=== PATIENT | female | born 1930 | race Caucasian/White ===

== ENCOUNTER 2017-01-30 20:10 | Observation (INO) ==
[2017-01-30] MEDS ORDERED: 0.9 % Sodium Chloride 1,000 ML IVC ONE (21:00)
--- NOTE | 2017-01-30 21:00 | Emergency Department Note ---
Disposition Clinical Impression: Accelerated hypertension Syncope Qualifiers: Encounter type: subsequent encounter Disposition: Admitted As Inpatient Condition: Fair Time of Disposition: 23:00 Syncope HPI - General Chief Complaint: ED Seizure Stated Complaint: seizure earlier today Time Seen by Provider: 01/30/17 20:25 Source: patient, family Nursing Notes Reviewed: Yes Vital Signs Reviewed: Yes - History of Present Illness HPI Narrative: 86-year-old female with syncopal episode, family was concerned that she was having a seizure, she does have known A. fib hypertension, she is on clonidine, amiodarone, diltiazem and lisinopril for hypertension and atrial fibrillation, she has been compliant on her medication. She had 1 episodes in every week ago , she was also seen at [facility] and for evaluation of the same complaints. Apparently today what happened was she was reaching down off a chair to machine pecan picker something for her great-granddaughter, then when she got up she passed out lost consciousness and was laid gently to the floor by her granddaughter who is at bedside, she did not bite her tongue or have urinary or bowel incontinence, she was out for a few minutes and had no postictal period. The patient did not describe that she had a jerking motion when she was passed out No recent fever chills chest pain abdominal pain nausea vomiting diarrhea hematuria or dysuria, patient has no other symptoms. Pt Subjective Complaint: loss of consciousness Onset (ago): hour(s) Duration: second(s) Description of Event: focal shaking Prodromal Symptoms: lightheaded Witnessed: yes - by bystander Context: during exertion, standing up Injuries Sustained Associated with Event: none Current Symptoms: none History: previous syncopal episode, history of CAD Treatments prior to arrival: none Associated trauma secondary to event: No - Related Data Home Medications Medication Instructions Recorded Confirmed Amiodarone HCl [Pacerone] 200 mg PO DAILY 01/14/17 01/30/17 Diltiazem HCl [Diltiazem ER] 240 mg PO DAILY 01/14/17 01/30/17 Pantoprazole Sodium [Protonix] 40 mg PO DAILY 01/14/17 01/30/17 Warfarin [Coumadin] 2.5 mg PO 1800 01/14/17 01/30/17 Aspirin [Lo-Dose Aspirin EC] 81 mg PO DAILY 01/30/17 01/30/17 CloNIDine HCl [Clonidine HCl] 0.1 mg PO BID 01/30/17 01/30/17 Lisinopril [Zestril] 10 mg PO DAILY 01/30/17 01/30/17 Allergies Allergy/AdvReac Type Severity Reaction Status Date / Time No Known Allergies Allergy Verified 10/18/16 19:54 All systems ED: reviewed and negative except as stated. Constitutional: Reports: as per HPI, weakness. Denies: fever, chills ENT ED: Denies: ear pain, throat pain Cardiovascular: Denies: chest pain, palpitations Respiratory: Denies: cough, dyspnea, wheezes Gastrointestinal: Denies: abdominal pain, nausea, vomiting Genitourinary: Denies: urgency, dysuria Musculoskeletal: Denies: back pain, neck pain Neurological: Reports: as per HPI, weakness, other (syncope). Denies: headache Endocrine: Denies: fatigue, heat or cold intolerance Past Medical History - Past Medical History Attestation: Yes The following information was validated with the patient. Source: patient Medical history: Reports: coronary artery disease, hyperlipidemia, hypertension , myocardial infarction, seizures Psychiatric history: Reports: no psych history - Social History Smoking Status: Former smoker Smokeless Tobacco Status: No Alcohol use: Reports: none Drug use: Reports: none Physical Exam Constitutional: Elderly female in no acute distress, appears stated age, vital signs significant for hypertension HEENT: NCAT, sclera anicteric, PERRLA bilaterally, normal external ears bilaterally, nasal septum nondeviated, average dentition, MMM Neck: normal inspection, neck is supple, trachea midline Resp: normal chest inspection, CTA bilaterally, no resp distress CV: Diminished mccann sounds, systolic murmur GI: normal inspection, Soft, NTND, BS present Back: normal inspection, no tenderness to palpation Neuro: A&O3, no gross motor or sensory deficits bilaterally on focal neurologic exam, cranial nerves II through XII grossly intact, MSK: normal inspection, bilateral UE and LE with normal ROM Psych: normal mood, normal affect Skin: Old surgical incisions on her knee and right ankle well healed, clean dry intact - General General appearance: alert Course Course Narrative: Elderly female with syncope most likely, possible seizure activity given jerking moment but given the history of sitting standing, doing check orthostatic vitals at CT basic lab work chest x-ray and EKG, patient appears at her baseline at this time with no focal neurologic deficits, I strongly suspect an orthostatic or vasovagal etiology for her syncope. Given multiple antihypertensives decision will be whether or not to admit or go home likely admission for further workup - Reevaluation(s) Reevaluation #1: Admitted to [place] for further workup labs imaging negative Vital Signs Temperature 97.6 F 01/30/17 20:11 Pulse Rate 62 01/30/17 20:11 Respiratory Rate 18 01/30/17 20:11 Blood Pressure 181/73 01/30/17 20:11 O2 Sat by Pulse Oximetry 98 01/30/17 20:11 Temperature 97.7 F 01/30/17 23:48 Pulse Rate 65 01/30/17 23:48 Respiratory Rate 18 01/30/17 23:48 Blood Pressure 167/60 01/30/17 23:48 O2 Sat by Pulse Oximetry 99 01/30/17 23:48 Oxygen Delivery Oxygen Delivery Room Air Syncope - Differential Diagnosis Likely: syncope due to orthostatic hypotension, vasovagal syncope, complete atrioventricular block, intracerebral hemorrhage, dehydration/metabolic disorder - Medical Records Medical records reviewed: Yes I reviewed the patient's medical records. - Lab Data Lab results reviewed: Yes I reviewed the patient's lab results. Result diagrams: 01/30/17 21:11 01/30/17 21:11 Lab Results 01/30/17 01/30/17 01/30/17 Range/Units 20:31 21:11 21:11 WBC 6.7 (4.3-11.1) K/mcL RBC 4.42 (3.82-4.97) M/mcL Hgb 12.5 (11.5-15.4) g/dL Hct 40.0 (35.3-44.9) % MCV 90.5 (83.0-100.0) fL MCH 28.3 (28.0-33.3) pg MCHC 31.3 L (31.6-35.5) g/dL RDW 14.1 (11.5-14.5) % Plt Count 248 (140-400) K/mcL MPV 9.4 (9.4-12.4) fL Immature Gran % 0.3 (0-4) % Seg Neutrophils % 65.0 % Lymphocytes % 24.1 % Monocytes % 6.6 % Eosinophils % 3.5 % Basophils % 0.5 % Neutrophils # 4.3 (1.6-8.9) K/mcL Lymphocytes # 1.6 (0.6-4.6) K/mcL Monocytes # 0.4 (0.0-1.3) K/mcL Eosinophils # 0.2 (0.0-0.6) K/mcL Basophils # 0.0 (0.0-0.2) K/mcL Immature Plt Fraction 1.9 (1.1-6.1) % PT 12.3 H (9.4-12.1) Seconds INR 1.1 APTT 29.5 (26.0-36.0) Seconds Sodium (136-145) mEq/L Potassium (3.5-4.5) mEq/L Chloride (98-109) mEq/L Carbon Dioxide (19-29) mEq/L BUN (7-20) mg/dL Creatinine (0.57-1.11) mg/dL Est GFR ( Amer) (> 60) Est GFR (Non-Af Amer) (> 60) BUN/Creatinine Ratio (6-26) Glucose (70-99) mg/dL POC Glucose 123 H (58-89) Calculated Osmolality (280-300) Calcium (8.6-10.8) mg/dL Troponin I (0-0.03) ng/mL Urine Color (Yellow) Urine Clarity (Clear) Urine pH (5.0-8.0) pH Units Ur Specific [place] (1.010-1.025) Urine Protein (Neg-Trace) mg/dL Urine Glucose (UA) (Normal) mg/dL Urine Ketones (Negative) mg/dL Urine Blood (Negative) Urine Nitrite (Negative) Urine Bilirubin (Negative) Urine Urobilinogen (Normal) mg/dL Ur Leukocyte Esterase (Negative) Urine Microscopic RBC (0-3) per hpf Urine Microscopic WBC (0-3) per hpf Ur Squamous Epith Cells (None-Few) per lpf Urine Bacteria (None-Few) per hpf Hyaline Casts (None-Few) per lpf Ur Culture Indicated? (NO) 01/30/17 01/30/17 01/30/17 Range/Units 21:11 21:11 21:52 WBC (4.3-11.1) K/mcL RBC (3.82-4.97) M/mcL Hgb (11.5-15.4) g/dL Hct (35.3-44.9) % MCV (83.0-100.0) fL MCH (28.0-33.3) pg MCHC (31.6-35.5) g/dL RDW (11.5-14.5) % Plt Count (140-400) K/mcL MPV (9.4-12.4) fL Immature Gran % (0-4) % Seg Neutrophils % % Lymphocytes % % Monocytes % % Eosinophils % % Basophils % % Neutrophils # (1.6-8.9) K/mcL Lymphocytes # (0.6-4.6) K/mcL Monocytes # (0.0-1.3) K/mcL Eosinophils # (0.0-0.6) K/mcL Basophils # (0.0-0.2) K/mcL Immature Plt Fraction (1.1-6.1) % PT (9.4-12.1) Seconds INR APTT (26.0-36.0) Seconds Sodium 141 (136-145) mEq/L Potassium 4.4 (3.5-4.5) mEq/L Chloride 108 (98-109) mEq/L Carbon Dioxide 25 (19-29) mEq/L BUN 22 H (7-20) mg/dL Creatinine 0.92 (0.57-1.11) mg/dL Est GFR ( Amer) > 60 (> 60) Est GFR (Non-Af Amer) 58 L (> 60) BUN/Creatinine Ratio 24 (6-26) Glucose 133 H (70-99) mg/dL POC Glucose (58-89) Calculated Osmolality 297 (280-300) Calcium 8.9 (8.6-10.8) mg/dL Troponin I 0.01 (0-0.03) ng/mL Urine Color Yellow (Yellow) Urine Clarity Clear (Clear) Urine pH 6.0 (5.0-8.0) pH Units Ur Specific [place] 1.010 (1.010-1.025) Urine Protein Negative (Neg-Trace) mg/dL Urine Glucose (UA) Normal (Normal) mg/dL Urine Ketones Negative (Negative) mg/dL Urine Blood Negative (Negative) Urine Nitrite Negative (Negative) Urine Bilirubin Negative (Negative) Urine Urobilinogen Normal (Normal) mg/dL Ur Leukocyte Esterase Small H (Negative) Urine Microscopic RBC 0-3 (0-3) per hpf Urine Microscopic WBC 5-15 H (0-3) per hpf Ur Squamous Epith Cells Many H (None-Few) per lpf Urine Bacteria None Seen (None-Few) per hpf Hyaline Casts None Seen (None-Few) per lpf Ur Culture Indicated? YES A (NO) - Radiology Data Radiology results reviewed: Yes I reviewed the patient's radiology results. Chest X-Ray 01/30/17 21:00 IMPRESSION: No acute cardiopulmonary disease. D/ / 01/30/2017 21:37:52 George Suresh MD / jelly Interpreting Provider: George Suresh MD Head CT 01/30/17 21:01 IMPRESSION: Chronic small vessel ischemic change. No acute intracranial abnormality seen. Paranasal sinus disease with small gas fluid levels in the maxillary sinuses, question sinusitis. Cerumen plugs obstructing the external auditory canals bilaterally. D/ / 01/30/2017 21:38:46 George Suresh MD / jelly Interpreting Provider: George Suresh MD - EKG Data EKG attestation: Yes I reviewed and interpreted this EKG. EKG shows normal: sinus rhythm Rate: bradycardia (59 bpm WI 187 QRS 143 QTc 474 evidence of right bundle branch block similar to previous EKG of 2012) Rhythm: NSR [place]/QRS: normal Interpretation: unchanged when compared to prior tracing (date) - Core Measures AMI Core Measures Followed: No Measure Exclusions: not indicated Attestation Statement - Attestation Attestation: I, Bogdan Bal MD, personally performed a history and physical exam of the patient and discussed their management with the resident. I reviewed the resident's note and agree with the documented findings, medical decision making , and plan of care. 86-year-old female persisted the emergency department after a syncopal episode. She apparently has been having multiple syncopal episodes over the past 2-3 weeks. He was admitted at [facility] about 2 weeks ago for this. Since then she has also been seen at [facility]. Family reports that she has some jerking and seizure-like activity and she blacks out. Patient reports that she remembers bending over to pick something up and when she stood back up she felt dizzy and lightheaded. She does not remember passing out but states that family told her she was out for a few minutes. He has any chest pain or palpitations or shortness of breath. On examination patient is a well-developed elderly female in no distress. She is alert and answers questions appropriately. She is very hard of hearing and seems mildly confused. Breath sounds are decreased but equal bilaterally. Heart regular rate and rhythm with a 1/6 systolic murmur. Abdomen is soft and nontender with normal bowel sounds. No gross focal neurological deficits. Labs reviewed. No acute changes on EKG. Chest x-ray negative. Head CT negative. The hospitalist, Dr. Duran, was consulted and accepted the admission of the patient.
[2017-01-30 21:19] LABS: Basophils % 0.5 %; Eosinophils # 0.2 K/mcL (0.0-0.6); Eosinophils % 3.5 %; Hemoglobin 12.5 g/dL (11.5-15.4); Immature Granulocytes % 0.3 % (0-4); Immature Platelets 1.9 % (1.1-6.1); Lymphocytes # 1.6 K/mcL (0.6-4.6); Lymphocytes % 24.1 %; Mean Corpuscular HGB Conc 31.3 g/dL (31.6-35.5); Mean Corpuscular Hemoglobin 28.3 pg (28.0-33.3); Mean Corpuscular Volume 90.5 fL (83.0-100.0); Mean Platelet Volume 9.4 fL (9.4-12.4); Monocytes # 0.4 K/mcL (0.0-1.3); Monocytes % 6.6 %; Neutrophils # 4.3 K/mcL (1.6-8.9); Platelet Count 248 K/mcL (140-400); Red Blood Count 4.42 M/mcL (3.82-4.97); Red Cell Distribution Width 14.1 % (11.5-14.5)
[2017-01-30 21:23] LABS: INR 1.1; Prothrombin Time 12.3 Seconds (9.4-12.1)
[2017-01-30 21:26] LABS: Activated Partial Thrombo Time 29.5 Seconds (26.0-36.0)
[2017-01-30 21:30] LABS: BUN/Creatinine Ratio 24 (6-26); Blood Urea Nitrogen 22 mg/dL (7-20); Calcium 8.9 mg/dL (8.6-10.8); Carbon Dioxide 25 mEq/L (19-29); Chloride 108 mEq/L (98-109); Glucose 133 mg/dL (70-99); Osmolality,Calculated 297 (280-300); Potassium 4.4 mEq/L (3.5-4.5); Sodium 141 mEq/L (136-145); eGFR For African Americans > 60 (> 60); eGFR For Non-African Americans 58 (> 60)
[2017-01-30 22:00] LABS: Bilirubin,Urine Negative (Negative); Blood,Urine Negative (Negative); Clarity,Urine Clear (Clear); Color,Urine Yellow (Yellow); Glucose,Urine (UA) Normal (Normal); Ketones,Urine Negative (Negative); Leukocyte Esterase,Urine Small (Negative); Nitrite,Urine Negative (Negative); Protein,Urine Negative (Neg-Trace); Urobilinogen,Urine Normal (Normal)
[2017-01-30 22:02] LABS: Bacteria,Urine None Seen per hpf (None-Few); Hyaline Casts,Urine None Seen per lpf (None-Few); RBC,Urine 0-3 per hpf (0-3); Squamous Epithelial Cell,Urine Many per lpf (None-Few)
--- NOTE | 2017-01-30 23:21 | Internal Med History&Physical ---
<Ginger Hollingsworth - Last Filed: 01/31/17 00:34> Date of Encounter: 01/31/17 Time of Encounter: 23:10 Assessment and Plan (1) Syncope and collapse Current visit: No Status: Acute Multiple previous ER visits and at least one previous admission for syncope. Head CT negative orthostatics negative obtain records from [facility] telemetry Echocardiogram (2) Subtherapeutic international normalized ratio (INR) Current visit: Yes Status: Acute patient with a fib on coumadin, INR 1.1 bridge with lovenox (3) UTI (urinary tract infection) Current visit: No Status: Acute macrobid x3days Qualifiers: Urinary tract infection type: site unspecified Hematuria presence: without hematuria Qualified Code(s): N39.0 - Urinary tract infection, site not specified (4) A-fib Current visit: Yes Status: Chronic continue home medications Qualifiers: Atrial fibrillation type: unspecified Qualified Code(s): I48.91 - Unspecified atrial fibrillation (5) HTN (hypertension) Current visit: Yes Status: Chronic continue home medications PRN hydralazine Qualifiers: Hypertension type: essential hypertension Qualified Code(s): I10 - Essential (primary) hypertension Internal Medicine - H&P: HPI Chief complaint: syncope Admitted From: Emergency Dept Plans for Post Hospital Care: Home History of present illness: Ms. Saucedo is a 86 year old female with PMH of HTN and a fib who presents to the ER after a syncopal episode this afternoon. She was bending down to pick something up off the floor and when she stood up, so lost consciousness. She was unconscious for a few minutes according to her granddaughter, who caught her and lowered her to the ground. There was no post-ictal phase. On my questioning, the patient states that she has a dizzy headache x1 week. She was admitted at [facility] for a similar episode. Patient states she also went to [facility] and was not admitted. She thinks she saw her PCP for this and was sent to the ER. She cannot remember her PCP's name, but knows that she goes to [facility]. (No family present at time of interview.) Past Med Surg Social Fam HX - Past Medical History Medical history: atrial fibrillation, coronary artery disease, hyperlipidemia, hypertension, myocardial infarction, seizures Psychiatric history: no psych history - Social History Smoking Status: Former smoker Smokeless Tobacco Status: No Alcohol use: none Drug use: none - Family History Son Adopted: No Living Status: Hx Family Cancer: Yes (not sure of type) Internal Medicine - H&P: Meds Amiodarone HCl [Pacerone] 200 mg PO DAILY 01/14/17 [History] Diltiazem HCl [Diltiazem ER] 240 mg PO DAILY 01/14/17 [History] Pantoprazole Sodium [Protonix] 40 mg PO DAILY 01/14/17 [History] Warfarin [Coumadin] 2.5 mg PO 1800 01/14/17 [History] Aspirin [Lo-Dose Aspirin EC] 81 mg PO DAILY 01/30/17 [History] CloNIDine HCl [Clonidine HCl] 0.1 mg PO BID 01/30/17 [History] Lisinopril [Zestril] 10 mg PO DAILY 01/30/17 [History] Allergies No Known Allergies Allergy (Verified 10/18/16 19:54) All Systems PM: A 10-system review of systems was performed and is negative for pertinent findings except as documented above in the HPI. - Constitutional Vitals: Temp Pulse Resp BP Pulse Ox 97.6 F 77 14 169/66 97 01/30/17 20:11 01/30/17 22:32 01/30/17 22:43 01/30/17 22:43 01/30/17 22:32 General appearance: Present: A&O X 3, pleasant, no acute distress - Head Head exam: Present: atraumatic, normocephalic - Eye Eye exam: Present: PERRL, conjuntiva pink, sclera anicteric Pupils: Present: PERRL - Neck Neck exam general surgery: Present: supple, trachea midline. Absent: lymphadenopathy - Respiratory Respiratory exam: Present: CTAB. Absent: accessory muscle use, rales, rhonchi, wheezes - Cardiovascular Cardiovascular exam: Present: distant heart sounds, RRR, +S1, +S2, systolic murmur. Absent: diastolic murmur, gallop, rubs - GI/Abdominal GI/Abdominal exam: Present: normal bowel sounds, soft, no peritoneal signs. Absent: distended, tenderness - Extremities Exam Extremities exam: Present: warm, radial pulses palpable and symetrical. Absent : calf tenderness, cyanotic, pedal edema - Neurological Exam Neurological exam: Present: CN II-XII intact, oriented X3, no focal deficits. Absent: pronater drift, facial droop, speech deficit - Skin Skin exam: Present: dry, intact Internal Med - H&P Results - Labs CBC & Chem 7: 01/30/17 21:11 01/30/17 21:11 <Maxim Ross - Last Filed: 01/31/17 01:37> Date of Encounter: 01/31/17 Time of Encounter: 00:30 Assessment and Plan (1) Syncope and collapse Current visit: No Status: Acute (2) Accelerated hypertension Current visit: Yes Status: Acute (3) Subtherapeutic international normalized ratio (INR) Current visit: Yes Status: Acute (4) A-fib Current visit: Yes Status: Chronic Qualifiers: Atrial fibrillation type: unspecified Qualified Code(s): I48.91 - Unspecified atrial fibrillation (5) HTN (hypertension) Current visit: Yes Status: Chronic Qualifiers: Hypertension type: essential hypertension Qualified Code(s): I10 - Essential (primary) hypertension (6) UTI (urinary tract infection) Current visit: No Status: Acute Qualifiers: Urinary tract infection type: site unspecified Hematuria presence: without hematuria Qualified Code(s): N39.0 - Urinary tract infection, site not specified Internal Medicine - H&P: HPI Chief complaint: Syncope Admitted From: Emergency Dept Plans for Post Hospital Care: Home History of present illness: I examined this patient and my medical decision-making was reviewed with the Resident Physician. I agree with the documented history of present illness, review of systems, past medical, surgical social and family histories and examination findings, disposition and treatment plan as described above except to any changes set forth below. Ms. Saucedo is a 86 year old female history of hypertension, atrial fibrillation who presented to the ER with complaints of a syncopal episode. This occurred at the patient's home when she was bending over to pick something off the floor. She lost consciousness after she stood up. This lasted for about a few minutes. Patient is currently very somnolent and unable to provide history. History has been obtained through review of ED records and through the resident physician.. All Systems PM: A 10-system review of systems was performed and is negative for pertinent findings except as documented above in the HPI. - Constitutional Vitals: Temp Pulse Resp BP Pulse Ox 97.7 F 65 18 167/60 99 01/30/17 23:48 01/30/17 23:48 01/30/17 23:48 01/30/17 23:48 01/30/17 23:48 Exam: Currently very somnolent and not answering questions. - Neck Neck exam general surgery: Present: supple, trachea midline. Absent: lymphadenopathy - Respiratory Respiratory exam: Present: CTAB. Absent: accessory muscle use, rales, rhonchi, wheezes - Cardiovascular Cardiovascular exam: Present: RRR, +S1, +S2. Absent: diastolic murmur, gallop, rubs, systolic murmur - GI/Abdominal GI/Abdominal exam: Present: normal bowel sounds, soft, no peritoneal signs. Absent: distended, tenderness - Extremities Exam Extremities exam: Present: warm, radial pulses palpable and symetrical. Absent : calf tenderness, cyanotic, pedal edema Internal Med - H&P Results - Labs CBC & Chem 7: 01/30/17 21:11 01/30/17 21:11 - Attending Attestation Elderly patient with recurrent episodes of syncope. We will observe in the hospital under telemetry. Get 2-D echocardiogram and carotid Dopplers. Get records from [facility] where the patient was recently seen. Gentle hydration. Treat acute urinary tract infection with Macrobid. Does not appear to have had seizure-like activity. May consider MRI of the brain and EEG. Accelerated hypertension: Improving. Continue home medications. Monitor blood pressure closely. Atrial fibrillation: Rate controlled and in sinus rhythm currently. Subtherapeutic INR. Will bridge with Lovenox. Continue Coumadin. This document has been at least partially created by [employer] recognition technology by Dr. Ross. Errors in grammar, wording or other phrases may exist. If errors are found after the documentation is signed, they will be addressed individually in the addendum section of this document when appropriate.
[2017-01-30] MEDS ORDERED: Naloxone 0.4 MG/ML INJ IVP PRN (23:30)
[2017-01-30] MEDS ORDERED: Ondansetron ODT 4 MG TAB.RAPDIS SL PRN (23:30)
[2017-01-30] MEDS ORDERED: Acetaminophen 325 MG TABLET PO PRN (23:30)
[2017-01-31] MEDS: 0.9 % Sodium Chloride 1,000 ML IVC SCH ×2 (01:17→17:34)
[2017-01-31] MEDS: *HR* Enoxaparin 80 MG/0.8 ML SYRINGE SQ SCH ×2 (05:36→17:29)
--- NOTE | 2017-01-31 08:27 | Internal Med Progress Note ---
Date of Encounter: 01/31/17 Time of Encounter: 08:23 - Assessment and plan (1) UTI (urinary tract infection) Current Visit: Yes Status: Acute Assessment and plan: Asymptomatic UTI; Urine dipstick suggestive of UTI, but this may be a contaminant since she was recently treated with IV Rocephin and cultures were negative. Continue Nitrofurantoin and c/c if urine culture is sterile. Qualifiers: Urinary tract infection type: site unspecified Hematuria presence: without hematuria Qualified Code(s): N39.0 - Urinary tract infection, site not specified (2) Syncope Current Visit: Yes Status: Acute Assessment and plan: Recurrent episodes, sometimes on bending down. To consider cardiac etiology. Orthostatic vitals negative. Telemetry monitoring, so far uneventful. Check 2D Echocardiogram in light of systolic murmur, and B/L carotid Doppler. Will consult Cardiology if needed. Patient may need to be discharged on Holter monitor if workup is negative. Qualifiers: Syncope type: unspecified Qualified Code(s): R55 - Syncope and collapse (3) CAD (coronary artery disease) Current Visit: Yes Status: Chronic Qualifiers: Coronary Disease-Associated Artery/Lesion type: [place] artery [place] vs. transplanted heart: [place] heart Associated angina: without angina Qualified Code(s): I25.10 - Atherosclerotic heart disease of [place] coronary artery without angina pectoris (4) A-fib Current Visit: Yes Status: Chronic Assessment and plan: Currently rate-controlled. Continue home meds- Amiodarone and Cardizem. Continue long-term anticoagultion with Coumadin; INR is subtherapeutic, bridge with Lovenox while in the hospital. Qualifiers: Atrial fibrillation type: unspecified Qualified Code(s): I48.91 - Unspecified atrial fibrillation (5) HTN (hypertension) Current Visit: Yes Status: Chronic Assessment and plan: Elevated BP; Clonidine was increased about 2 weeks ago per [facility] notes. Will increase Lisinopril, resume other meds, and continue to monitor. On PRN IV Hydralazine for appropriate BP control. Low sodium diet. Qualifiers: Hypertension type: essential hypertension Qualified Code(s): I10 - Essential (primary) hypertension - Subjective Interval history: Feels well. No dizziness, chest pain, dyspnea, leg swelling, focal weakness reported. - Constitutional Vitals: Temp Pulse Resp BP Pulse Ox 97.9 F 64 18 169/66 96 01/31/17 05:56 01/31/17 05:56 01/31/17 05:56 01/31/17 05:56 01/31/17 05:56 General appearance: Present: A&O X 3, answers questions appropriately - Head Head exam: Present: atraumatic, normocephalic - Neck Neck exam general surgery: Present: supple, trachea midline. Absent: lymphadenopathy - Respiratory Respiratory exam: Present: CTAB. Absent: accessory muscle use, rales, rhonchi, wheezes - Cardiovascular Cardiovascular exam: Present: RRR, +S1, +S2, systolic murmur. Absent: diastolic murmur, gallop, rubs - GI/Abdominal GI/Abdominal exam: Present: normal bowel sounds, soft, no peritoneal signs. Absent: distended, tenderness - Extremities Exam Extremities exam: Present: full ROM, warm, radial pulses palpable and symetrical. Absent: calf tenderness, cyanotic, pedal edema - Neurological Exam Neurological exam: Present: CN II-XII intact, oriented X3, no focal deficits. Absent: pronater drift, facial droop, speech deficit - Skin Skin exam: Present: dry, intact Internal Medicine: Result - Labs CBC & Chem 7: 01/30/17 21:11 01/30/17 21:11 - ABG Interpretation ABG results: PT/INR, D-dimer PT 12.3 Seconds (9.4-12.1) H 01/30/17 21:11 Consult Discharge Plan - Plan Referrals: NO,PCP [Primary Care Provider] -
[2017-01-31] MEDS: Aspirin Enteric Coated 81 MG Tablet PO SCH (09:07)
[2017-01-31] MEDS: Nitrofurantoin (BID) 100 MG CAPSULE PO SCH ×2 (09:07→17:30)
[2017-01-31] MEDS: cloNIDine HCl 0.1 MG TABLET PO SCH ×2 (09:07→21:08)
[2017-01-31] MEDS: *HR* Amiodarone 200 MG TABLET PO SCH (09:07)
[2017-01-31] MEDS: Diltiazem CD (24hr) 240 MG CAPSULE PO SCH (09:07)
--- NOTE | 2017-01-31 11:09 | ECHO - Doppler Report ---
Echocardiogram Name: Clara Saucedo Date of Study: 01/31/2017 Date: 1930 Ht: 61.0 in Medical Record#: [id number] Age: 86 Wt: 148.0 lb Gender: Female BSA: 1.66 Order #: [id number] Location: [facility] Room #: 2NE21 Reading Physician: Jessica Reed DO Green Building Engineer: Desirae Winslow Ordering Physician: Ginger Hollingsworth DO Primary Physician: None Indications: Syncope Impressions: LVEF 60%. Normal left ventricular size and systolic function. There is evidence of mild diastolic dysfunction of the left ventricle. Normal right ventricular size and function. Mild aortic stenosis. Mild tricuspid regurgitation. Mild pulmonary hypertension. Possible PFO with color flow Doppler. If indicated, consider repeat Limited study with saline bubble study. Left Ventricular Wall Motion: Rest Echo Findings All wall segments showed normal motion. Findings: Study Quality * Technically adequate exam. ECG Findings * Normal sinus rhythm. Left Ventricle * LVEF 60%. * Mild left ventricular diastolic dysfunction. * Normal LV chamber size, wall thickness and function. Left Atrium * Normal left atrial size. Mitral Valve * Normal mitral valve structure. * Moderate mitral annular calcification * Trace mitral regurgitation. * No mitral stenosis. Aortic Valve * No aortic regurgitation. * Aortic valve not well visualized. * Mild aortic stenosis. Tricuspid Valve * Mild tricuspid regurgitation. * Normal tricuspid valve structure. * Estimated RA pressure is 3 mmHg. * Estimated RVSP is 39 mmHg. * Mild pulmonary hypertension. Pulmonic Valve * Pulmonic valve is not well visualized. * No pulmonic stenosis. * Trace pulmonic regurgitation. Right Ventricle * Normal right ventricular structure and function. Right Atrium * Normal right atrial size. Pulmonary Artery * Pulmonary artery not well visualized. IVC * Normal IVC dimensions and inspiratory collapse. Pericardium * There is no pericardial effusion present. Aorta * Not well visualized. Interatrial Septum * Interatrial septum not well evaluated. Possible PFO with color flow doppler. History Hypertension Hypercholesteremia History of CAD/PTCA Myocardial Infarction Measurements: BP: 191/ 76 2D Normal Values LVIDd: 3.20 cm 3.7 - 5.6 cm LVIDs: 2.30 cm 1.5 - 3.6 cm AO: 2.70 cm < 4.0 cm LA: 3.70 cm 2.0 - 4.0cm %FS: 28.10 cm >25 % LVOT Diam: 2.00 cm LA volume: 27 Mitral Valve Peak E:.81 m/sec Peak A:1.26 m/sec E/A Ratio:0.6 Peak E' Lat Ga:6.04 cm/s Peak E' Med Ga:6.53 cm/s E/E' Lat Ratio:13.5 E/E' Med Ratio:12.5 LVOT Peak Ga:1.08 m/sec Mean Ga:.76 m/sec Peak Grad:5.00 mmHg Mean Grad:3.00 mmHg Aortic Valve Peak Ga:2.38 m/sec Mean Ga:1.67 m/sec Peak Grad:23.00 mmHg Mean Grad:12.00 mmHg Valve Area:1.60 cm2 Tricuspid Valve TV Regurg Peak Grad: 36.00mmHg TV Regurg Peak Ga: 3.00m/sec Updated by Jessica Reed on 01/31/2017 11:01:50 AM electronically signed on 01/31/2017 11:02:56 AM with status of Final Wall Motion Michael: 1=Normal, 2=Hypokinesis, 3=Akinesis, 4=Dyskinesis, 5=Aneurysmal, 6=Hyperkinetic, X=Not Visualized (Blank)=Missing
--- NOTE | 2017-01-31 14:53 | Neurology - Consult Note ---
<Elgin Gong - Last Filed: 01/31/17 15:18> Date of Encounter: 01/31/17 Time of Encounter: 14:35 Assessment and Plan (1) Observed seizure-like activity Current Visit: Yes Status: Acute The patient exhibiting "shaking episodes" that are brief and are quickly resolved when attention is diverted. Patient experienced more during examination. Patient immediately responsive and not post-ictal after the episodes. They affect bilateral upper extremities and during them she kicks her legs intermittently. These do not appear to be true seizures but an EEG and MRI should be obtained. (2) Syncope Current Visit: Yes Status: Acute Numerous events occurring over the past 5 months. The patient's orthostatic vitals are negative. Patient has mild dizziness worsened with head positioning. Echo demonstrated no etiology of patient's symptoms. Qualifiers: Syncope type: unspecified Qualified Code(s): R55 - Syncope and collapse (3) Subtherapeutic international normalized ratio (INR) Current Visit: Yes Status: Acute Bridged on Lovenox upon admission due to subtherapeutic INR (4) A-fib Current Visit: Yes Status: Chronic Per primary Qualifiers: Atrial fibrillation type: unspecified Qualified Code(s): I48.91 - Unspecified atrial fibrillation (5) CAD (coronary artery disease) Current Visit: Yes Status: Chronic Qualifiers: Coronary Disease-Associated Artery/Lesion type: [place] artery [place] vs. transplanted heart: [place] heart Associated angina: without angina Qualified Code(s): I25.10 - Atherosclerotic heart disease of [place] coronary artery without angina pectoris (6) HTN (hypertension) Current Visit: Yes Status: Chronic Numerous medications. Concern for possible medication induced positional hypotension at home. Qualifiers: Hypertension type: essential hypertension Qualified Code(s): I10 - Essential (primary) hypertension History of Present Illness Chief complaint: Syncope, Seizure like activity HPI: Ms. Saucedo is a 86 year old female with extensive history of HTN and afib on warfarin therapy. The patient was at home 2 days ago and went to lean over to pick something off the ground and "passed out". The patient was slowly lowered to floor by patient's granddaughter. The patient was "out for a few minutes" and then quickly came to. She remembers up to and after the syncope. She states that she has sought out medical attention for this previously with 1 previous admission at [facility] and an ED visit at [facility]. The patient was evaluated at [facility] ED with Head CT whih revealed no acute process. In addition the patient was recently treated for UTI with IV rocephin. The patient was also placed on macrobid PO per primary team for asymptomatic UTI upon admission. After admission the patient has exhibited numerous episodes of seizure like activity where she shakes her upper extremities for a few seconds and then immediately comes to and answers questions. Upon introducing myself to the patient, she was able to illicit where she was, who I was, who she was and her son as well. Once I informed the patient that I was with neurology she immediately began shaking her upper extremities in a disorderly fashion. This last about 5 seconds. Then she looked right at RN. I called her attention to which she looked right at me and answered all questions correctly immediately after episode. She had another episode soon after. I then examined the patient which demonstrated no deficits. She was neurologically intact. She then had another episode, but quickly responded once her toe was pinched during the episode. The patient does states she feels slightly short of breath but denies any other complaints at this time. Denies recent stressors, lack in sleep, previous seizure diagnosis. The patient's son does illicit that this has happened several times since this past Thanksgiving. She has had 4 episodes up until the admission over the last 4-5 months. She remembers them all. Son is very anxious and screams every time patient has a shaking episode. Patient placed in seizure precautions. Past Med Surg Social Fam HX - Past Medical History Attestation: Yes The following information was validated with the patient. Source: patient, old records reviewed Medical history: coronary artery disease, hyperlipidemia, hypertension, myocardial infarction, seizures Psychiatric history: no psych history - Past Surgical History Surgical History: orthopedic, other - Social History Smoking Status: Former smoker Smokeless Tobacco Status: No Alcohol use: none Drug use: none Current living situation: Home, With Family Activity Level: Independent ambulation - Family History Son Adopted: No Living Status: Hx Family Cancer: Yes (not sure of type) Medications and Allergies Amiodarone HCl [Pacerone] 200 mg PO DAILY 01/14/17 [History] Diltiazem HCl [Diltiazem ER] 240 mg PO DAILY 01/14/17 [History] Pantoprazole Sodium [Protonix] 40 mg PO DAILY 01/14/17 [History] Warfarin [Coumadin] 2.5 mg PO QPM 01/14/17 [History] Aspirin [Lo-Dose Aspirin EC] 81 mg PO DAILY 01/30/17 [History] CloNIDine HCl [Clonidine HCl] 0.1 mg PO BID 01/30/17 [History] Lisinopril [Zestril] 10 mg PO DAILY 01/30/17 [History] Allergies No Known Allergies Allergy (Verified 10/18/16 19:54) All Systems: A 10-system review of systems was performed and is negative for pertinent findings except as documented above in the HPI. - Constitutional Constitutional ROS IM: frequent falls, weakness (generalized) - Respiratory Respiratory IM: dyspnea (mild) - Neurological Neurological ROS: frequent falls, syncope, other (shaking episodes) Physical Examination - Vital Signs Vital Signs: Initial Vital Signs Temp Pulse Resp BP Pulse Ox 97.6 F 62 18 181/73 98 01/30/17 20:11 01/30/17 20:11 01/30/17 20:11 01/30/17 20:11 01/30/17 20:11 - Exam Exam: Patient experienced 3 shaking episodes during examination with immediate alertness and correct responses after episodes. In addition, last episode quickly ended after her toe was pinched. Patient speaking in full sentences but does appear to be slightly short of breath. - Constitutional General appearance: comfortable - Neurologic Sensorimotor examination: intact Detailed motor examination: full strength in all major muscle groups Motor examination - right side: 5/5: deltoids, biceps, triceps, wrist flexion, wrist extension, contract writer, hip flexors, tibialis Anterior, quadriceps, toe extension (EHL), plantarflexion Motor examination - left side: 5/5: deltoids, biceps, triceps, wrist flexion, wrist extension, hip flexors, contract writer, quadriceps, tibialis Anterior, toe extension (EHL), plantarflexion Detailed sensory examination: intact Reflex and gait examination: intact Reflexes: Biceps: 2+, Brachioradialis: 2+, Patella: 2+, Achilles: 2+ Mental Status Examination: awake, alert, oriented to person, oriented to place, oriented to time, follows commands appropriately, answers questions appropriately, no agnosia, no aphasia, no aproxia Cranial nerve examination: PERRL, EOMI, visual fan intact, corneal reflexes brisk symmetrically, sensory to face intact, mastication intact, no facial asymmetry is present, no dysarthria, hearing is intact symmetrically, soft palate elevates bilaterally upon phonation, gag reflex intact, flexes SCM and trapezius muscles symmetrically with full power, tongue protrudes midline, no atrophy or facial fasiculations present Cerebellar examination: no dysmetria, performs finger to nose and heel to green symmetrically without ataxia, no difficulty with rapid alternating movements Results - Laboratory Findings CBC and BMP: 01/30/17 21:11 01/30/17 21:11 Abnormal lab findings: Abnormal lab results MCHC 31.3 g/dL (31.6-35.5) L 01/30/17 21:11 PT 12.3 Seconds (9.4-12.1) H 01/30/17 21:11 BUN 22 mg/dL (7-20) H 01/30/17 21:11 Est GFR (Non-Af Amer) 58 (> 60) L 01/30/17 21:11 Glucose 133 mg/dL (70-99) H 01/30/17 21:11 POC Glucose 123 (58-89) H 01/30/17 20:31 Ur Leukocyte Esterase Small (Negative) H 01/30/17 21:52 Urine Microscopic WBC 5-15 per hpf (0-3) H 01/30/17 21:52 Ur Squamous Epith Cells Many per lpf (None-Few) H 01/30/17 21:52 Ur Culture Indicated? YES (NO) A 01/30/17 21:52 - Diagnostic Findings EKG: image reviewed Chest x-ray: report reviewed - Attending Attestation I examined this patient and my medical decision-making was reviewed with the Resident Physician. I agree with the documented findings, disposition and treatment plan as described except to the extent set forth below. Consult Discharge Plan - Plan Referrals: Cesilia Ahn CNP [Advanced Practice Nurse] - 02/07/17 12:30 pm <Raghavendra Colin I - Last Filed: 01/31/17 16:15> Date of Encounter: 01/31/17 Assessment and Plan (1) Observed seizure-like activity Current Visit: Yes Status: Acute The patient exhibiting "shaking episodes" that are brief and are quickly resolved when attention is diverted. Patient experienced more during examination. Patient immediately responsive and not post-ictal after the episodes. They affect bilateral upper extremities and during them she kicks her legs intermittently. These do not appear to be true seizures but an EEG and MRI should be obtained. pt seen and examined agree with Dr Hernandes documentation Raghavendra Colin MD History of Present Illness HPI: Ms. Saucedo is a 86 year old female All Systems: A 10-system review of systems was performed and is negative for pertinent findings except as documented above in the HPI. Physical Examination - Vital Signs Vital Signs: Initial Vital Signs Temp Pulse Resp BP Pulse Ox 97.6 F 62 18 181/73 98 01/30/17 20:11 01/30/17 20:11 01/30/17 20:11 01/30/17 20:11 01/30/17 20:11 Results - Laboratory Findings CBC and BMP: 01/30/17 21:11 01/30/17 21:11 Abnormal lab findings: Abnormal lab results MCHC 31.3 g/dL (31.6-35.5) L 01/30/17 21:11 PT 12.3 Seconds (9.4-12.1) H 01/30/17 21:11 BUN 22 mg/dL (7-20) H 01/30/17 21:11 Est GFR (Non-Af Amer) 58 (> 60) L 01/30/17 21:11 Glucose 133 mg/dL (70-99) H 01/30/17 21:11 POC Glucose 123 (58-89) H 01/30/17 20:31 Ur Leukocyte Esterase Small (Negative) H 01/30/17 21:52 Urine Microscopic WBC 5-15 per hpf (0-3) H 01/30/17 21:52 Ur Squamous Epith Cells Many per lpf (None-Few) H 01/30/17 21:52 Ur Culture Indicated? YES (NO) A 01/30/17 21:52
--- NOTE | 2017-01-31 17:03 | Electrocardiograph Report ---
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
--- NOTE | 2017-01-31 17:26 | Electrocardiograph Report ---
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
[2017-01-31] MEDS: *HR* Warfarin 2.5 MG TABLET PO SCH (17:30)
[2017-01-31] MEDS ORDERED: Warfarin perPT PO PRN ×2 (18:00)
[2017-02-01] MEDS: *HR* Enoxaparin 80 MG/0.8 ML SYRINGE SQ SCH ×2 (05:58→17:27)
[2017-02-01 07:05] LABS: INR 1.3; Prothrombin Time 13.9 Seconds (9.4-12.1)
[2017-02-01 07:16] LABS: BUN/Creatinine Ratio 17 (6-26); Blood Urea Nitrogen 13 mg/dL (7-20); Calcium 8.1 mg/dL (8.6-10.8); Carbon Dioxide 24 mEq/L (19-29); Chloride 111 mEq/L (98-109); Glucose 124 mg/dL (70-99); Osmolality,Calculated 296 (280-300); Potassium 4.1 mEq/L (3.5-4.5); Sodium 142 mEq/L (136-145); eGFR For African Americans > 60 (> 60); eGFR For Non-African Americans > 60 (> 60)
[2017-02-01] MEDS: Diltiazem CD (24hr) 240 MG CAPSULE PO SCH (10:47)
[2017-02-01] MEDS: Aspirin Enteric Coated 81 MG Tablet PO SCH (10:47)
[2017-02-01] MEDS: cloNIDine HCl 0.1 MG TABLET PO SCH ×2 (10:47→20:57)
[2017-02-01] MEDS: Nitrofurantoin (BID) 100 MG CAPSULE PO SCH ×2 (10:48→17:27)
[2017-02-01] MEDS: *HR* Amiodarone 200 MG TABLET PO SCH (10:48)
[2017-02-01] MEDS: 0.9 % Sodium Chloride 1,000 ML IVC SCH (10:49)
--- NOTE | 2017-02-01 11:25 | EEG/EMG/Oth Biometrics Report ---
EEG Procedure Report Date of procedure: 02/01/17 EEG Procedure: Routine EEG Procedure Note: Routine EEG Routine 18-channel digital EEG was obtained to rule out any seizure activity or focal abnormalities. FINDINGS: Background rhythm during awake stage shows well-organized, well- developed, average voltage 8 to 9 hertz alpha activity in the posterior regions. It blocks with eye opening and it is bilaterally synchronous and symmetrical. No [id number] discharges or any lateralizing abnormalities are seen. Photic stimulation did not produce any abnormalities. Hyperventilation was not performed. No abnormalities were found during the procedure. Intermittent EMG artifacts were seen. Stage II sleep was not achieved. IMPRESSION: Normal awake study. No epileptiform discharges or any other paroxysmal activities or focal abnormalities seen. Please note that normal EEG does not exclude the diagnosis of seizure or epilepsy Clinical correlation is recommended.
--- NOTE | 2017-02-01 11:32 | Neurology Progress Note ---
Date of Encounter: 02/01/17 Time of Encounter: 08:10 Assessment and Plan (1) Observed seizure-like activity Current Visit: Yes Status: Acute The patient did have some jerking and shaking his spells but at the moment I really doubt that this is indeed a seizure. MRI of the brain did not show any acute intracranial abnormality she did have a pansinusitis that need to be treated. I reviewed the EEG that did not show any seizure activity At the moment would not recommend any anticonvulsant medication Need to treat underlying medical and infectious abnormality Other treatment is as per primary care team call if needed, thank you for your consultation Subjective Interval history: Patient is stable no other new problems and no other new symptoms no further seizures or any syncopal attack, Jonathan of the brain did not show any acute intracranial abnormality and shows evidence of sinusitis as well as mastoid fluid Objective - Constitutional Vitals: Temp Pulse Resp BP Pulse Ox 97.4 F L 51 18 154/71 94 L 02/01/17 08:13 02/01/17 08:13 02/01/17 08:13 02/01/17 08:13 02/01/17 08:13 - Neurological Exam Sensorimotor examination: Present: intact Motor Examination: Present: full strength in all major muscle groups Motor examination - left side: 5/5: deltoids, biceps, triceps, wrist flexion, wrist extension, hip flexors, car repairman, quadriceps, tibialis Anterior, toe extension (EHL), plantarflexion Sensation intact: Present: intact Reflex and gait examination: intact Mental Status Examination: Present: awake, alert, oriented to person, oriented to place, oriented to time, follows commands appropriately, answers questions appropriately, no agnosia, no aphasia, no aproxia Cranial nerve examination: Present: PERRL, EOMI, visual fan intact, corneal reflexes brisk symmetrically, sensory to face intact, mastication intact, no facial asymmetry is present, no dysarthria, hearing is intact symmetrically, soft palate elevates bilaterally upon phonation, gag reflex intact, flexes SCM and trapezius muscles symmetrically with full power, tongue protrudes midline, no atrophy or facial fasiculations present Cerebellar examination: Present: no dysmetria, performs finger to nose and heel to green symmetrically without ataxia, no difficulty with rapid alternating movements Results - Laboratory Findings CBC and BMP: 01/30/17 21:11 02/01/17 06:16 Abnormal lab findings: Abnormal lab results MCHC 31.3 g/dL (31.6-35.5) L 01/30/17 21:11 PT 13.9 Seconds (9.4-12.1) H 02/01/17 06:16 Chloride 111 mEq/L (98-109) H 02/01/17 06:16 Glucose 124 mg/dL (70-99) H 02/01/17 06:16 POC Glucose 114 (58-89) H 01/31/17 21:01 Calcium 8.1 mg/dL (8.6-10.8) L 02/01/17 06:16 Ur Leukocyte Esterase Small (Negative) H 01/30/17 21:52 Urine Microscopic WBC 5-15 per hpf (0-3) H 01/30/17 21:52 Ur Squamous Epith Cells Many per lpf (None-Few) H 01/30/17 21:52 Ur Culture Indicated? YES (NO) A 01/30/17 21:52 Consult Discharge Plan - Plan Referrals: Cesilia Ahn CNP [Advanced Practice Nurse] - 02/07/17 12:30 pm
--- NOTE | 2017-02-01 13:39 | Carotid Imaging Report ---
Carotid Duplex Patient Name:Clara Saucedo Order Number:[id number] Procedure Date:01/31/2017 Date:1930ge:86 yrs Gender:Female Lt BP:155 / 66 mmHg Rt.BP:155 / 66 mmHgHeart Rate: Location:[facility] Room #: 2NE21 Edi Specialist:Kathryn Pedraza Referring MD:Joceline Torres MD hairspring adjuster:None Reading MD:Oh Tim MD , FACS Primary Indications:Recurrent syncope and collapse Risk Factors Yes/No Hypertension Hypercholesterolemia Impressions: Findings: Right distal ICA has a moderate, 40-59% stenosis. Findings: Left proximal ICA has a severe, 60-79% stenosis. Findings Carotid Duplex: Right: There is nonstenotic plaque in the right proximal common carotid artery. There is smooth heterogeneous plaque. There is nonstenotic plaque in the right bifurcation. There is calcified plaque. There is nonstenotic plaque in the right proximal internal carotid artery. There is smooth heterogeneous plaque. There is 40-59% stenosis in the right distal internal carotid artery. There is smooth homogeneous plaque. The right eca has turbulent flow with plaque. Left: There is nonstenotic plaque in the left mid common carotid artery. There is smooth heterogeneous plaque. There is nonstenotic plaque in the left distal common carotid artery. There is irregular heterogeneous plaque. There is nonstenotic plaque in the left bifurcation. There is calcified plaque. There is 60-79% stenosis in the left proximal internal carotid artery. There is 40-59% stenosis in the left mid internal carotid artery. There is 40-59% stenosis in the left distal internal carotid artery. The left eca has turbulent flow with plaque. Prior Study: No prior study available for comparison. Carotid Results Right PSV EDV Assessment Proximal CCA 101 17 Non Stenotic Plaque Mid CCA 87 18 Normal Distal CCA 86 14 Normal Bifurcation 92 15 Non Stenotic Plaque Proximal ICA 78 14 Non Stenotic Plaque Mid ICA 99 21 Normal Distal ICA 126 30 40-59% stenosis ECA 144 13 Non Stenotic Plaque Vertebral Artery 73 11 Antegrade Flow Left PSV EDV Assessment Proximal CCA 119 19 Normal Mid CCA 101 15 Non Stenotic Plaque Distal CCA 103 18 Non Stenotic Plaque Bifurcation 85 15 Non Stenotic Plaque Proximal ICA 198 39 60-79% stenosis Mid ICA 135 28 40-59% stenosis Distal ICA 143 25 40-59% stenosis ECA 189 28 Non Stenotic Plaque Vertebral Artery 75 16 Antegrade Flow Ratio's Right ICA/CCA Ratio: 1.45 ICA/CCA Values: 126/87 Left ICA/CCA Ratio: 1.96 ICA/CCA Values: 198/101 Updated by Oh Tim MD, FACS on 02/01/2017 1:35:01 PM Oh Tim MD electronically signed on 02/01/2017 1:35:29 PM with status of Final
--- NOTE | 2017-02-01 15:57 | Internal Med Progress Note ---
Date of Encounter: 02/01/17 Time of Encounter: 10:00 - Assessment and plan (1) Syncope Current Visit: Yes Status: Acute Assessment and plan: Recurrent episodes, sometimes on bending down. To consider cardiac etiology. Orthostatic vitals negative. Telemetry monitoring, so far uneventful. Echocardiogram unremarkable. B/L carotid Doppler shows carotid artery stenosis, we will consult vascular surgery. Continue cardiac monitoring. Qualifiers: Syncope type: unspecified Qualified Code(s): R55 - Syncope and collapse (2) UTI (urinary tract infection) Current Visit: Yes Status: Acute Assessment and plan: Asymptomatic UTI; Urine dipstick suggestive of UTI, but this may be a contaminant since she was recently treated with IV Rocephin and cultures were negative. Continue Nitrofurantoin and d/c if urine culture is sterile. Qualifiers: Urinary tract infection type: site unspecified Hematuria presence: without hematuria Qualified Code(s): N39.0 - Urinary tract infection, site not specified (3) CAD (coronary artery disease) Current Visit: Yes Status: Chronic Assessment and plan: Continue home medication Qualifiers: Coronary Disease-Associated Artery/Lesion type: [place] artery [place] vs. transplanted heart: [place] heart Associated angina: without angina Qualified Code(s): I25.10 - Atherosclerotic heart disease of [place] coronary artery without angina pectoris (4) HTN (hypertension) Current Visit: Yes Status: Chronic Assessment and plan: BP is stable now. Qualifiers: Hypertension type: essential hypertension Qualified Code(s): I10 - Essential (primary) hypertension (5) A-fib Current Visit: Yes Status: Chronic Assessment and plan: Currently rate-controlled. Continue home meds- Amiodarone and Cardizem. Continue long-term anticoagultion with Coumadin; INR is subtherapeutic, bridge with Lovenox while in the hospital. Qualifiers: Atrial fibrillation type: unspecified Qualified Code(s): I48.91 - Unspecified atrial fibrillation (6) Observed seizure-like activity Current Visit: Yes Status: Acute Assessment and plan: Neurology consult on case. MRI and EEG negative. No seizure medication recommended. (7) Subtherapeutic international normalized ratio (INR) Current Visit: Yes Status: Acute Assessment and plan: Continue coumadin, f/u PT/INR. - Time Spent With Patient 25 - 35 minutes - Subjective Interval history: Patient is a 86-year-old female admitted for seizure-like movement and syncope. Past medical history is significant for A. fib, CAD, hyperlipidemia, hypertension. Patient was seen and examined, she is awake alert, no further seizure-like movement noticed. Vitals are stable. Neurology consul appreciated. No seizure medication recommended now. We will continue treat underlying UTI. - Constitutional Vitals: Temp Pulse Resp BP Pulse Ox 97.9 F 52 18 139/85 95 02/01/17 15:26 02/01/17 15:26 02/01/17 15:26 02/01/17 15:26 02/01/17 15:26 General appearance: Present: A&O X 3, answers questions appropriately - Head Head exam: Present: atraumatic, normocephalic - Eye Eye exam: Present: PERRL, conjuntiva pink, sclera anicteric Pupils: Present: PERRL - Neck Neck exam general surgery: Present: supple, trachea midline. Absent: lymphadenopathy - Respiratory Respiratory exam: Present: CTAB. Absent: accessory muscle use, rales, rhonchi, wheezes - Cardiovascular Cardiovascular exam: Present: RRR, +S1, +S2. Absent: diastolic murmur, gallop, rubs, systolic murmur - GI/Abdominal GI/Abdominal exam: Present: normal bowel sounds, soft, no peritoneal signs. Absent: distended, tenderness - Extremities Exam Extremities exam: Present: warm, radial pulses palpable and symetrical. Absent : calf tenderness, cyanotic, pedal edema - Neurological Exam Neurological exam: Present: CN II-XII intact, oriented X3, no focal deficits. Absent: pronater drift, facial droop, speech deficit - Skin Skin exam: Present: dry, intact Internal Medicine: Result - Labs CBC & Chem 7: 01/30/17 21:11 02/01/17 06:16 Labs: BMP 02/01/17 06:16 Sodium 142 Potassium 4.1 Chloride 111 H Carbon Dioxide 24 BUN 13 Creatinine 0.78 Glucose 124 H Calcium 8.1 L - ABG Interpretation ABG results: PT/INR, D-dimer PT 13.9 Seconds (9.4-12.1) H 02/01/17 06:16 - Impressions Impressions Tibia/Fibula X-Ray 01/31/17 00:00 IMPRESSION: Internal fixation hardware of the distal femur D/ / Oh Beckford MD / Oh Beckford MD Interpreting Provider: Oh Beckford MD Tibia/Fibula X-Ray 01/31/17 00:00 IMPRESSION: Internal fixation hardware of the distal femur and proximal tibia. Additional findings as discussed D/ / Oh Beckford MD / Oh Beckford MD Interpreting Provider: Oh Beckford MD Brain MRI 01/31/17 15:18 IMPRESSION: 1. Motion limited evaluation. 2. No acute intracranial abnormality. 3. Mild chronic white matter microvascular ischemic changes. 4. Findings suggest acute paranasal sinusitis. 5. Right mastoid effusion. D/ / Nikhil Moreno MD / Nikhil Moreno MD Interpreting Provider: Nikhil Moreno MD Consult Discharge Plan - Plan Referrals: Cesilia Ahn CNP [Advanced Practice Nurse] - 02/07/17 12:30 pm
[2017-02-01] MEDS: *HR* Warfarin 2.5 MG TABLET PO SCH (17:27)
--- NOTE | 2017-02-01 17:27 | Vascular/Endovasc Consult Note ---
Date of Encounter: 02/01/17 Time of Encounter: 17:00 Assessment and Plan (1) Carotid stenosis, bilateral Current Visit: Yes Status: Chronic The pathophysiology and natural history of carotid stenosis was discussed with the patient and all questions were answered. The patient denies any symptoms of CVA, TIA or amaurosis fugax. She has no focal neurologic deficits. She reportedly has had synocpal epsiodes and seizure-like activity. Her carotid duplex reveals bilateral 40-59% internal carotid artery stenosis. Her MRI is unremarkable. Her EEG revealed no abnormalities. Her echo revealed a possible PFO. The etiology is unclear at this time, but does not appear to be related to her carotid stenosis. Atherosclerotic risk factor reduction and daily Aspirin is recommended. Further evaluation of her symptoms by Neurology may be indicated. The patient may follow-up in vascular clinic after discharge. A repeat carotid duplex in 1 year is recommended. (2) Syncope Current Visit: Yes Status: Acute Qualifiers: Syncope type: unspecified Qualified Code(s): R55 - Syncope and collapse (3) CAD (coronary artery disease) Current Visit: Yes Status: Chronic Qualifiers: Coronary Disease-Associated Artery/Lesion type: [place] artery [place] vs. transplanted heart: [place] heart Associated angina: without angina Qualified Code(s): I25.10 - Atherosclerotic heart disease of [place] coronary artery without angina pectoris - History of Present Illness Consult date: 02/01/17 Requesting physician: Emily Peña Consult reason: Carotid stenosis Chief complaint: Seizure like activity History of present illness: Ms. Saucedo is a 86 year old female who has had multiple episodes of seizurelike activity during the last few weeks. She also reports at least one episode of syncope. The patients episodes have been witnessed and she is unable to recall events surrounding the episodes. The patients family states that prior to a few weeks ago, the patient has been very active. The patient denies any headaches, dizziness, palpitations, parasthesias, weakness or temporary loss of vision. Her family states that the episodes can last a few minutes at a time. As part of her evaluation, she underwent a carotid duplex and it was noted to be abnormal. Vascular surgery was then consulted for further evaluation. The patient is alert and oriented at the time of the evaluation. She denies chest pain or shortness of breath. Past Med Surg Social Fam HX - Past Medical History Medical history: coronary artery disease, hyperlipidemia, hypertension, myocardial infarction, seizures Psychiatric history: no psych history - Past Surgical History Surgical History: orthopedic, other - Social History Smoking Status: Former smoker Smokeless Tobacco Status: No Alcohol use: none Drug use: none - Family History Son Adopted: No Living Status: Hx Family Cancer: Yes (not sure of type) Medications and Allergies Amiodarone HCl [Pacerone] 200 mg PO DAILY 01/14/17 [History] Diltiazem HCl [Diltiazem ER] 240 mg PO DAILY 01/14/17 [History] Pantoprazole Sodium [Protonix] 40 mg PO DAILY 01/14/17 [History] Warfarin [Coumadin] 2.5 mg PO QPM 01/14/17 [History] Aspirin [Lo-Dose Aspirin EC] 81 mg PO DAILY 01/30/17 [History] CloNIDine HCl [Clonidine HCl] 0.1 mg PO BID 01/30/17 [History] Lisinopril [Zestril] 10 mg PO DAILY 01/30/17 [History] Allergies No Known Allergies Allergy (Verified 10/18/16 19:54) All Systems Review: A 10-system review of systems was performed and is negative for pertinent findings except as documented above in the HPI. Exam Vital Signs, Last 4 Hours Temp Pulse Resp BP Pulse Ox 02/01/17 15:26 97.9 F 52 18 139/85 95 General: Present: Conversant, No Apparent Distress, Other (partial hearing loss noted) HEENT: Present: Atraumatic, Normocephaly, Trachea midline, Pupils equal Neck: Absent: JVD, Lymphadenopathy, Left Carotid bruit, Right Carotid bruit, Tracheal deviation Cardiac: Present: Reg Rate and Rhythm, Normal S1 and S2 Lungs: Present: Normal Breath Sounds, No Wheeze, Rales, Rhonchi Neuro: Present: Alert and responsive, No focal deficits noted, Cranial nerves grossly intact, Motor nerves grossly intact, Sensory nerves grossly intact Abdomen: Present: Soft, Non-tender. Absent: Masses Vascular: Present: Normal capillary refill, Pulse, normal. Absent: Cyanosis, Edema Skin: Present: No rashes noted on visualized skin Musculoskeletal: Present: No Chest Wall Tenderness Consult Discharge Plan - Plan Instructions: Atrial Fibrillation (DC), Urinary Tract Infection in Women (DC), Syncope (DC), Chronic Hypertension (DC) Referrals: Cesilia Ahn CNP [Advanced Practice Nurse] - 02/07/17 12:30 pm
[2017-02-02] MEDS: 0.9 % Sodium Chloride 1,000 ML IVC SCH (04:25)
[2017-02-02 05:28] LABS: Basophils % 0.8 %; Eosinophils # 0.3 K/mcL (0.0-0.6); Hematocrit 35.9 % (35.3-44.9); Hemoglobin 11.4 g/dL (11.5-15.4); Immature Granulocytes % 0.2 % (0-4); Lymphocytes # 1.5 K/mcL (0.6-4.6); Lymphocytes % 29.1 %; Mean Corpuscular HGB Conc 31.8 g/dL (31.6-35.5); Mean Corpuscular Hemoglobin 28.5 pg (28.0-33.3); Mean Corpuscular Volume 89.8 fL (83.0-100.0); Mean Platelet Volume 10.4 fL (9.4-12.4); Monocytes # 0.4 K/mcL (0.0-1.3); Monocytes % 7.4 %; Platelet Count 197 K/mcL (140-400); Red Cell Distribution Width 14.2 % (11.5-14.5); Segmented Neutrophils % 56.5 %
[2017-02-02] MEDS: *HR* Enoxaparin 80 MG/0.8 ML SYRINGE SQ SCH ×2 (05:33→17:05)
[2017-02-02 05:38] LABS: INR 1.3; Prothrombin Time 13.8 Seconds (9.4-12.1)
[2017-02-02 05:45] LABS: BUN/Creatinine Ratio 20 (6-26); Blood Urea Nitrogen 14 mg/dL (7-20); Calcium 8.1 mg/dL (8.6-10.8); Carbon Dioxide 24 mEq/L (19-29); Chloride 111 mEq/L (98-109); Glucose 119 mg/dL (70-99); Osmolality,Calculated 296 (280-300); Potassium 4.1 mEq/L (3.5-4.5); Sodium 142 mEq/L (136-145); eGFR For African Americans > 60 (> 60); eGFR For Non-African Americans > 60 (> 60)
[2017-02-02] MEDS: Aspirin Enteric Coated 81 MG Tablet PO SCH (10:02)
[2017-02-02] MEDS: Diltiazem CD (24hr) 240 MG CAPSULE PO SCH (10:03)
[2017-02-02] MEDS: cloNIDine HCl 0.1 MG TABLET PO SCH ×2 (10:03→20:05)
[2017-02-02] MEDS: Nitrofurantoin (BID) 100 MG CAPSULE PO SCH (10:04)
[2017-02-02] MEDS: *HR* Amiodarone 200 MG TABLET PO SCH (10:04)
--- NOTE | 2017-02-02 16:54 | Internal Med Progress Note ---
Date of Encounter: 02/02/17 Time of Encounter: 16:00 - Assessment and plan (1) Syncope Current Visit: Yes Status: Acute Assessment and plan: Recurrent episodes, sometimes on bending down. To consider cardiac etiology. Orthostatic vitals negative. Telemetry monitoring, so far uneventful. Echocardiogram unremarkable. B/L carotid Doppler shows carotid artery stenosis, vascular surgery consulted and recommended outpatient follow up. Patient may have arrhythmia, we will place holter monitoring. Qualifiers: Syncope type: unspecified Qualified Code(s): R55 - Syncope and collapse (2) UTI (urinary tract infection) Current Visit: Yes Status: Acute Assessment and plan: Asymptomatic UTI; Urine dipstick suggestive of UTI, but this may be a contaminant since she was recently treated with IV Rocephin and cultures were negative. Qualifiers: Urinary tract infection type: site unspecified Hematuria presence: without hematuria Qualified Code(s): N39.0 - Urinary tract infection, site not specified (3) CAD (coronary artery disease) Current Visit: Yes Status: Chronic Assessment and plan: Continue home medication Qualifiers: Coronary Disease-Associated Artery/Lesion type: [place] artery [place] vs. transplanted heart: [place] heart Associated angina: without angina Qualified Code(s): I25.10 - Atherosclerotic heart disease of [place] coronary artery without angina pectoris (4) HTN (hypertension) Current Visit: Yes Status: Chronic Assessment and plan: BP is high. Increase lisinopril from 20 mg daily to 40 mg daily. Qualifiers: Hypertension type: essential hypertension Qualified Code(s): I10 - Essential (primary) hypertension (5) A-fib Current Visit: Yes Status: Chronic Assessment and plan: Currently rate-controlled. Continue home meds- Amiodarone and Cardizem. Continue long-term anticoagultion with Coumadin; INR is subtherapeutic, bridge with Lovenox while in the hospital. Qualifiers: Atrial fibrillation type: unspecified Qualified Code(s): I48.91 - Unspecified atrial fibrillation (6) Observed seizure-like activity Current Visit: Yes Status: Acute Assessment and plan: Neurology consult on case. MRI and EEG negative. No seizure medication recommended. Suspect arrhythmia, no arrhythmia caught by cardiac monitoring, will place patient on Holter monitor. (7) Subtherapeutic international normalized ratio (INR) Current Visit: Yes Status: Acute Assessment and plan: Continue coumadin, f/u PT/INR. - Time Spent With Patient 25 - 35 minutes - Subjective Interval history: Patient is a 86-year-old female admitted for seizure-like movement and syncope. Past medical history is significant for A. fib, CAD, hyperlipidemia, hypertension. Patient was seen and examined, she is awake alert, patient had another seizure- like movement this afternoon, witnessed by family members. Lasted about 10-15 second. Per family member, patient is awake during the seizure-like movement. Patient said that she feels something hit on her chest when she has the moment. Denies feeling of HUNGRY or diaphoresis. Blood pressure is high after the jerking movement. Go back to review the cardiac catheterization technologist, but cannot find any arrhythmia, possibly not caught. Will order 24-hour Holter to rule out arrhythmia. - Constitutional Vitals: Temp Pulse Resp BP Pulse Ox 97.8 F 59 15 176/87 96 02/02/17 15:32 02/02/17 15:32 02/02/17 15:32 02/02/17 15:32 02/02/17 15:32 General appearance: Present: A&O X 3, answers questions appropriately - Head Head exam: Present: atraumatic, normocephalic - Eye Eye exam: Present: PERRL, conjuntiva pink, sclera anicteric Pupils: Present: PERRL - Neck Neck exam general surgery: Present: supple, trachea midline. Absent: lymphadenopathy - Respiratory Respiratory exam: Present: CTAB. Absent: accessory muscle use, rales, rhonchi, wheezes - Cardiovascular Cardiovascular exam: Present: RRR, +S1, +S2. Absent: diastolic murmur, gallop, rubs, systolic murmur - GI/Abdominal GI/Abdominal exam: Present: normal bowel sounds, soft, no peritoneal signs. Absent: distended, tenderness - Extremities Exam Extremities exam: Present: warm, radial pulses palpable and symetrical. Absent : calf tenderness, cyanotic, pedal edema - Neurological Exam Neurological exam: Present: CN II-XII intact, oriented X3, no focal deficits. Absent: pronater drift, facial droop, speech deficit - Skin Skin exam: Present: dry, intact Internal Medicine: Result - Labs CBC & Chem 7: 02/02/17 04:24 02/02/17 04:24 Labs: Short CBC 02/02/17 Range/Units 04:24 WBC 5.3 (4.3-11.1) K/mcL Hgb 11.4 L (11.5-15.4) g/dL Hct 35.9 (35.3-44.9) % Plt Count 197 (140-400) K/mcL Neutrophils # 3.0 (1.6-8.9) K/mcL BMP 02/02/17 04:24 Sodium 142 Potassium 4.1 Chloride 111 H Carbon Dioxide 24 BUN 14 Creatinine 0.70 Glucose 119 H Calcium 8.1 L - ABG Interpretation ABG results: PT/INR, D-dimer PT 13.8 Seconds (9.4-12.1) H 02/02/17 04:24 Consult Discharge Plan - Plan Instructions: Atrial Fibrillation (DC), Urinary Tract Infection in Women (DC), Syncope (DC), Chronic Hypertension (DC) Referrals: Cesilia Ahn CNP [Advanced Practice Nurse] - 02/07/17 12:30 pm
[2017-02-02] MEDS: *HR* Warfarin 2.5 MG TABLET PO SCH (17:06)
[2017-02-03] MEDS: *HR* Enoxaparin 80 MG/0.8 ML SYRINGE SQ SCH ×2 (04:59→17:53)
[2017-02-03 05:48] LABS: Basophils % 0.5 %; Eosinophils # 0.2 K/mcL (0.0-0.6); Eosinophils % 2.6 %; Hematocrit 37.2 % (35.3-44.9); Hemoglobin 11.9 g/dL (11.5-15.4); Immature Granulocytes % 0.4 % (0-4); Lymphocytes # 1.5 K/mcL (0.6-4.6); Lymphocytes % 19.6 %; Mean Corpuscular Hemoglobin 28.4 pg (28.0-33.3); Mean Corpuscular Volume 88.8 fL (83.0-100.0); Mean Platelet Volume 9.9 fL (9.4-12.4); Monocytes # 0.5 K/mcL (0.0-1.3); Monocytes % 7.1 %; Neutrophils # 5.3 K/mcL (1.6-8.9); Platelet Count 208 K/mcL (140-400); Red Blood Count 4.19 M/mcL (3.82-4.97); Red Cell Distribution Width 14.2 % (11.5-14.5); Segmented Neutrophils % 69.8 %
[2017-02-03 05:52] LABS: INR 1.5
[2017-02-03 05:59] LABS: BUN/Creatinine Ratio 17 (6-26); Blood Urea Nitrogen 12 mg/dL (7-20); Calcium 8.3 mg/dL (8.6-10.8); Carbon Dioxide 26 mEq/L (19-29); Chloride 106 mEq/L (98-109); Glucose 115 mg/dL (70-99); Magnesium 1.6 mg/dL (1.6-2.6); Osmolality,Calculated 287 (280-300); Potassium 3.9 mEq/L (3.5-4.5); Sodium 138 mEq/L (136-145); eGFR For African Americans > 60 (> 60); eGFR For Non-African Americans > 60 (> 60)
[2017-02-03 06:21] LABS: Thyroid Stimulating Hormone 3.694 mcIU/mL (0.350-4.840)
[2017-02-03] MEDS: Lisinopril 20 MG TABLET PO SCH (09:23)
[2017-02-03] MEDS: cloNIDine HCl 0.1 MG TABLET PO SCH ×2 (09:23→20:51)
[2017-02-03] MEDS: Diltiazem CD (24hr) 240 MG CAPSULE PO SCH (09:23)
[2017-02-03] MEDS: Aspirin Enteric Coated 81 MG Tablet PO SCH (09:23)
[2017-02-03] MEDS: *HR* Amiodarone 200 MG TABLET PO SCH (09:24)
--- NOTE | 2017-02-03 10:29 | Cardiology Consult Note ---
Date of Encounter: 02/03/17 Time of Encounter: 10:00 Assessment and Plan (1) Syncope Current Visit: Yes Status: Acute Reports 2 syncopal episodes over the past 3-4 weeks; multiple near syncopal episodes. MRI brain shows acute paranasal sinusitis--defer treatment and mgmt to primary service. BCS: Right ICA moderate 40-59% stenosis and Left ICA severe 60-70% stenosis-- Vascular surgery consulted recommended medical management and outpatient follow- up. TTE: EF 60%, mild , mild TR, and mild PH. Telemetry review: avg HR=59 SR. HR 50-60's upon exam. Few episodes of 2:1 AV block noted per telemetry review occurring 02/02/17 at 15: 11 and 02/02/17 at 10:16 AM--Reviewed strips with Dr. Montero. Recommend decreasing dose of cardizem to 180 mg daily due to SB. Recommend HM at discharge. Continue to monitor telemetry closely. Will review strips with Dr. Wilian Rogers for further recommendations. Qualifiers: Syncope type: unspecified Qualified Code(s): R55 - Syncope and collapse (2) Accelerated hypertension Current Visit: Yes Status: Acute SBP >200 upon presentation. Control improved; defer further mgmt to primary service. (3) A-fib Current Visit: Yes Status: Chronic Reported hx of atrial fibrillation--SR upon exam. On amiodarone and coumadin for AC. Has not previously followed with [facility]. Patient is unsure who she follows for Cardiology, [facility]? Qualifiers: Atrial fibrillation type: chronic Qualified Code(s): I48.2 - Chronic atrial fibrillation Discussion w patient/family: The assessment and plan as outlined above was discussed with the patient and/or family members who expressed understanding and agreement. All questions were answered. Thank you for involving us in the care of your patient. Please call with any questions. The patient will be discussed and reviewed with Dr. Montero; changes to be made accordingly. History of Present Illness Consult date: 02/03/17 Requesting physician: Emily Peña Consult reason: syncope Chief complaint: syncope History of present illness: Ms. Saucedo is a 86 year old female with PMH significant for AF, GERD, and HTN who presented to [facility] after a reported syncopal episode. She is very hard of hearing and therefore HPI was difficult to obtain; unfortunately family not present at bedside during examination. She reports x2 syncopal episodes over the past 3-4 weeks--has been to [facility] ED and kept overnight for observation, went to [facility] ED and was discharged, and now came to [facility] with similar symptoms. Reports dizziness leading up to admission today. Neurology and Vascular surgery consulted and following. Apparently, family has reported seizure like activity prior to events; however EEG was negative. CT head showed sinusitis and cerumen obstructing bilateral ear canals. She is unable to recall her PCP and denies following with outside Reporting Manager-- home medications include amiodarone and coumadin. Past Med Surg Social Fam HX - Past Medical History Attestation: Yes The following information was validated with the patient. Source: patient Medical history: coronary artery disease, hyperlipidemia, hypertension, myocardial infarction, seizures Psychiatric history: no psych history - Past Surgical History Surgical History: orthopedic, other - Social History Smoking Status: Former smoker Smokeless Tobacco Status: No Alcohol use: none Drug use: none Current living situation: With Family - Family History Son Adopted: No Living Status: Hx Family Cancer: Yes (not sure of type) Medications and Allergies Amiodarone HCl [Pacerone] 200 mg PO DAILY 01/14/17 [History] Diltiazem HCl [Diltiazem ER] 240 mg PO DAILY 01/14/17 [History] Pantoprazole Sodium [Protonix] 40 mg PO DAILY 01/14/17 [History] Warfarin [Coumadin] 2.5 mg PO QPM 01/14/17 [History] Aspirin [Lo-Dose Aspirin EC] 81 mg PO DAILY 01/30/17 [History] CloNIDine HCl [Clonidine HCl] 0.1 mg PO BID 01/30/17 [History] Lisinopril [Zestril] 10 mg PO DAILY 01/30/17 [History] Allergies No Known Allergies Allergy (Verified 10/18/16 19:54) All Systems Review: A 10-system review of systems was performed and is negative for pertinent findings except as documented above in the HPI. - Cardiovascular Cardiovascular: as per HPI Physical Examination Vital Signs, Last 4 Hours Temp Pulse Resp BP Pulse Ox 02/03/17 09:30 95 02/03/17 07:00 97.5 F L 59 14 167/65 95 General: Conversant, Other (hard of hearing ) HEENT: Atraumatic, Normocephaly Cardiac: Other (irregularly irregular) Lungs: Normal Breath Sounds Neuro: Alert and responsive Abdomen: Soft Skin: No rashes noted on visualized skin Musculoskeletal: No Chest Wall Tenderness Extremities: No Edema, Normal Pulses Results 02/03/17 05:39 02/03/17 05:39 Lab Results 02/03/17 02/03/17 02/03/17 05:38 05:39 05:39 WBC 7.6 Hgb 11.9 Hct 37.2 Plt Count 208 INR 1.5 Sodium 138 Potassium 3.9 Chloride 106 Carbon Dioxide 26 BUN 12 Creatinine 0.71 Glucose 115 H Calcium 8.3 L Magnesium 1.6 TSH 3.694 Active Medications Acetaminophen (Tylenol) 650 mg PO Q6HR PRN PRN Reason: Mild Pain (1-3) Stop: 08/01/17 23:31 Amiodarone HCl (Cordarone) 200 mg PO DAILY [facility] Stop: 08/02/17 09:01 Last Admin: 02/03/17 09:24 Dose: 200 mg Aspirin (Aspirin Ec) 81 mg PO DAILY [facility] Stop: 08/02/17 09:01 Last Admin: 02/03/17 09:23 Dose: 81 mg Clonidine HCl (Clonidine Hcl) 0.2 mg PO BID [facility] Stop: 08/02/17 09:01 Last Admin: 02/03/17 09:23 Dose: 0.2 mg Diltiazem HCl (Cardizem Cd) 240 mg PO DAILY [facility] Stop: 08/02/17 09:01 Last Admin: 02/03/17 09:23 Dose: 240 mg Docusate Sodium (Colace) 100 mg PO BID PRN PRN Reason: Constipation Stop: 08/01/17 23:31 Enoxaparin Sodium (Lovenox) 70 mg 1 mg/kg (70 mg) SQ Q12HR [facility] PRN Reason: Protocol Stop: 08/02/17 06:01 Last Admin: 02/03/17 04:59 Dose: 70 mg Hydralazine HCl (Hydralazine) 10 mg IVP Q6HR PRN PRN Reason: Hypertension Stop: 08/01/17 23:34 Last Admin: 02/02/17 17:12 Dose: 10 mg Lisinopril (Zestril) 40 mg PO DAILY [facility] PRN Reason: Protocol Stop: 08/05/17 09:01 Last Admin: 02/03/17 09:23 Dose: 40 mg Naloxone HCl (Narcan) 0.4 mg IVP Q2MIN PRN PRN Reason: Opioid Reversal Stop: 08/01/17 23:31 Omeprazole (Prilosec) 20 mg PO DAILY [facility] Stop: 08/02/17 09:01 Last Admin: 02/03/17 09:23 Dose: 20 mg Ondansetron HCl (Zofran Odt) 4 mg SL Q8HR PRN PRN Reason: Nausea And Vomiting Stop: 08/01/17 23:31 Warfarin Sodium (Coumadin Perpt) 1 each PO DAILY@1800 PRN PRN Reason: SEE COMMENTS Stop: 08/02/17 18:01 Warfarin Sodium (Coumadin) 2.5 mg PO QD@1800 [facility] Stop: 08/02/17 18:01 Last Admin: 02/02/17 17:06 Dose: 2.5 mg ITS Impressions Chest X-Ray 01/30/17 21:00 IMPRESSION: No acute cardiopulmonary disease. D/ / 01/30/2017 21:37:52 George Suresh MD / jelly Head CT 01/30/17 21:01 IMPRESSION: Chronic small vessel ischemic change. No acute intracranial abnormality seen. Paranasal sinus disease with small gas fluid levels in the maxillary sinuses, question sinusitis. Cerumen plugs obstructing the external auditory canals bilaterally. D/ / 01/30/2017 21:38:46 George Suresh MD / jelly Tibia/Fibula X-Ray 01/31/17 00:00 IMPRESSION: Internal fixation hardware of the distal femur D/ / Oh Beckford MD / Oh Beckford MD Tibia/Fibula X-Ray 01/31/17 00:00 IMPRESSION: Internal fixation hardware of the distal femur and proximal tibia. Additional findings as discussed D/ / Oh Beckford MD / Oh Beckford MD Brain MRI 01/31/17 15:18 IMPRESSION: 1. Motion limited evaluation. 2. No acute intracranial abnormality. 3. Mild chronic white matter microvascular ischemic changes. 4. Findings suggest acute paranasal sinusitis. 5. Right mastoid effusion. D/ / iNkhil Moreno MD / Nikhil Moreno MD - Imaging and Cardiology Chest Xray: report reviewed Echo: report reviewed Other Results: 24 hour tele: avg HR=59 afib. HR 50-60's upon exam. - EKG Interpretation EKG results cardiology: personally reviewed Consult Discharge Plan - Plan Instructions: Atrial Fibrillation (DC), Urinary Tract Infection in Women (DC), Syncope (DC), Chronic Hypertension (DC) Referrals: Cesilia Ahn CNP [Advanced Practice Nurse] - 02/07/17 12:30 pm
--- NOTE | 2017-02-03 15:23 | Internal Med Progress Note ---
Date of Encounter: 02/03/17 Time of Encounter: 10:00 - Assessment and plan (1) Syncope Current Visit: Yes Status: Acute Assessment and plan: Recurrent episodes, sometimes on bending down. To consider cardiac etiology. Orthostatic vitals negative. Telemetry monitoring, so far uneventful. Echocardiogram unremarkable. B/L carotid Doppler shows carotid artery stenosis, vascular surgery consulted and recommended outpatient follow up. Patient may have arrhythmia, we will place holter monitoring. Qualifiers: Syncope type: unspecified Qualified Code(s): R55 - Syncope and collapse (2) UTI (urinary tract infection) Current Visit: Yes Status: Acute Assessment and plan: Asymptomatic UTI; Urine dipstick suggestive of UTI, but this may be a contaminant since she was recently treated with IV Rocephin and cultures were negative. Off abx now. Qualifiers: Urinary tract infection type: site unspecified Hematuria presence: without hematuria Qualified Code(s): N39.0 - Urinary tract infection, site not specified (3) CAD (coronary artery disease) Current Visit: Yes Status: Chronic Assessment and plan: Continue home medication Qualifiers: Coronary Disease-Associated Artery/Lesion type: [place] artery [place] vs. transplanted heart: [place] heart Associated angina: without angina Qualified Code(s): I25.10 - Atherosclerotic heart disease of [place] coronary artery without angina pectoris (4) HTN (hypertension) Current Visit: Yes Status: Chronic Assessment and plan: BP is high. Increase lisinopril from 20 mg daily to 40 mg daily. Qualifiers: Hypertension type: essential hypertension Qualified Code(s): I10 - Essential (primary) hypertension (5) A-fib Current Visit: Yes Status: Chronic Assessment and plan: Currently rate-controlled. Continue home meds- Amiodarone and Cardizem. Continue long-term anticoagultion with Coumadin; INR is subtherapeutic, bridge with Lovenox while in the hospital. Cardizem dose has been decreased per cardiology. Qualifiers: Atrial fibrillation type: chronic Qualified Code(s): I48.2 - Chronic atrial fibrillation (6) Observed seizure-like activity Current Visit: Yes Status: Acute Assessment and plan: Neurology consult on case. MRI and EEG negative. No seizure medication recommended. Suspect arrhythmia, no arrhythmia caught by cardiac monitoring, will place patient on Holter monitor. Cardio consult called for further management. (7) Subtherapeutic international normalized ratio (INR) Current Visit: Yes Status: Acute Assessment and plan: Continue coumadin, f/u PT/INR. - Time Spent With Patient 25 - 35 minutes - Subjective Interval history: Patient is a 86-year-old female admitted for seizure-like movement and syncope. Past medical history is significant for A. fib, CAD, hyperlipidemia, hypertension. Patient was seen and examined, she is awake alert, no further seizure-like movement. Improved HTN after increase lisinopril dose. Cardio consult appreciated. Will f/u with holter result. - Constitutional Vitals: Temp Pulse Resp BP Pulse Ox 97.5 F L 59 14 167/65 95 02/03/17 07:00 02/03/17 07:00 02/03/17 07:00 02/03/17 07:00 02/03/17 09:30 General appearance: Present: A&O X 3, answers questions appropriately - Head Head exam: Present: atraumatic, normocephalic - Eye Eye exam: Present: PERRL, conjuntiva pink, sclera anicteric Pupils: Present: PERRL - Neck Neck exam general surgery: Present: supple, trachea midline. Absent: lymphadenopathy - Respiratory Respiratory exam: Present: CTAB. Absent: accessory muscle use, rales, rhonchi, wheezes - Cardiovascular Cardiovascular exam: Present: RRR, +S1, +S2. Absent: diastolic murmur, gallop, rubs, systolic murmur - GI/Abdominal GI/Abdominal exam: Present: normal bowel sounds, soft, no peritoneal signs. Absent: distended, tenderness - Extremities Exam Extremities exam: Present: warm, radial pulses palpable and symetrical. Absent : calf tenderness, cyanotic, pedal edema - Neurological Exam Neurological exam: Present: CN II-XII intact, oriented X3, no focal deficits. Absent: pronater drift, facial droop, speech deficit - Skin Skin exam: Present: dry, intact Internal Medicine: Result - Labs CBC & Chem 7: 02/03/17 05:39 02/03/17 05:39 Labs: Short CBC 02/03/17 Range/Units 05:39 WBC 7.6 (4.3-11.1) K/mcL Hgb 11.9 (11.5-15.4) g/dL Hct 37.2 (35.3-44.9) % Plt Count 208 (140-400) K/mcL Neutrophils # 5.3 (1.6-8.9) K/mcL BMP 02/03/17 05:39 Sodium 138 Potassium 3.9 Chloride 106 Carbon Dioxide 26 BUN 12 Creatinine 0.71 Glucose 115 H Calcium 8.3 L - ABG Interpretation ABG results: PT/INR, D-dimer PT 16.0 Seconds (9.4-12.1) H 02/03/17 05:38 Consult Discharge Plan - Plan Instructions: Atrial Fibrillation (DC), Urinary Tract Infection in Women (DC), Syncope (DC), Chronic Hypertension (DC) Referrals: Ceislia Ahn CNP [Advanced Practice Nurse] - 02/07/17 12:30 pm
[2017-02-04 05:49] LABS: INR 1.6; Prothrombin Time 17.9 Seconds (9.4-12.1)
--- NOTE | 2017-02-04 08:46 | Pre-Sedation Evaluation ---
Pre-sedation evaluation - Pre-sedation checklist Date of procedure: 02/04/17 Procedure: Permanent Pacemaker Placement Recent Vitals: Last Vital Signs Temp 98.2 F 02/04/17 07:45 Pulse 86 02/04/17 07:45 Resp 16 02/04/17 07:45 BP 157/71 02/04/17 07:45 Pulse Ox 95 02/04/17 07:45 H&P (including ROS) documented in medical record: Yes Dietary Status: NPO after Midnight Airway Assessment: Patient can open mouth completely, TMJ function normal, Micrognathia (under-bite, receding chin) absent Dentition: No loose teeth or bridges Possible difficult airway: No ASA Classification *see protocol: CLASS II-Mild systemic disease Plan of Care: Pt appropriate candidate for procedure/moderate/conscious sedation , Risks/benefits of procedure/sedation discussed w/ patient/family
--- NOTE | 2017-02-04 08:58 | Event Note ---
Date of Encounter: 02/04/17 Time of Encounter: 08:56 - Cardiology Event Note Telemetry strips reviewed with EP, Dr. Wilian Rogers yesterday. Evidence of 2:1 AV block--cannot rule out second degree type 2 block. Concern given pt presented with syncope and given these telemetry findings, it does put her at increased risk of developing complete heart block in the future. PPM recommended. R/B/A discussed and pt agrees. PPM today.
[2017-02-04] MEDS ORDERED: 0.9 % Sodium Chloride 500 ML ONE (08:59)
[2017-02-04] MEDS ORDERED: *HR* Midazolam HCl 2 MG/2 ML VIAL ONE (08:59)
[2017-02-04] MEDS ORDERED: Water for inj. (sterile) 10 ML IV ONE (08:59)
[2017-02-04] MEDS ORDERED: *HR* FentaNYL (PF) 100 MCG/2 ML VIAL ONE (08:59)
[2017-02-04] MEDS ORDERED: D5% in Water (Mini-Bag+) 100 ML IVPB ONE (09:00)
[2017-02-04] MEDS ORDERED: 0.9 % Sodium Chloride 1,000 ML ONE (09:01)
[2017-02-04] MEDS ORDERED: *HR* Morphine 2 MG/ML SYRINGE IVP PRN (10:04)
--- NOTE | 2017-02-04 10:13 | Invasive Diagnostic Lab ---
Dual Chamber Pacemaker Insertion Name: Clara Saucedo Date of Study: 02/04/2017 Date: 1930 Ht: 155.0 cm / 61.0 in Medical Record#: [id number] Age: 86 Wt: 71.0 kg / 156.5 lb Gender: Female BSA: 1.70 Location: Fluoro Dose: 140 mGy BMI: 29.55 Performing MD: Wilian Rogers MD, [facility] Referring MD: None Procedures Performed: Procedure PM INSERTION DUAL LEADS Indications: Description Syncope Bradycardia (2nd degree AV block) Impressions: * Successful implant of dual chamber pacemaker generator. Degree of difficulty was moderate. Appropriate functionality was observed at the end of the case. Procedure completed without incident. Recommendations: The patient will follow-up in 4-6 weeks for a post-pacemaker interrogation and evaluation with their Ophthalmologist. Procedure Description: After informed consent was obtained, the patient was brought to the laboratory in the fasting, post absorptive state. The left subclavicular region was prepped and draped in sterile fashion. Local anesthesia was performed using 1% Lidocaine. A 4cm incision was created two fingerbreadths below and parallel to the clavicle and carried down to the prepectoral fascia. At that level, a pocket was created to accomodate and size the hardware. This portion of the procedure used sharp dissection, blunt dissection and electrocautery. Venous access was obtained using a dual axillary vein stick with the modified Seldinger technique using two 9 Fr. Safe sheaths. The right ventricular lead was manipulated under direct fluoroscopy to find a physically stable and electrically optimal location in the RV [place]. Next, the right atrial lead was placed and again manipulated under direct fluoroscopy to find a physically stable electrically optimal location in the RA appendage. Hemostasis was obtained. The pocket was copiously irrigated with antibiotic solution. The device was connected to the leads in standard fashion and set screws deployed. The device was placed in the pocket. No anchoring sutures were placed. The wound was closed in layers starting with 2-0 Vicryl for the deep layer and 4-0 Vicryl for the skin. Steri-Strips were placed and 4x4s secured with tape. The patient tolerated the procedure well. Complications: None Disposition: The patient was returned to the recovery room. Patient will be scheduled to have a follow-up wound check in one week here at [facility]. PPM Device Information: Cell Assembly Pinner Model Name Model No. Serial No. Ruddytronic Maria A KIM MRI SureScan [id number] PPM Lead(s) Information: Cell Assembly Pinner Model Name Model No. Serial No. Placement Medtronic CapSureFix Novus MRI SureScan [id number] RV [place] Medtronic CapSureFix Novus MRI SureScan [id number] RA appendage Device Measurement Data: Sensing (mV) Threshold (V) / (msec) Impedance (Ohms) Atrial Lead 2.1 1.3 / 0.5 807 RV Lead 6 1 / 0.5 1015 LV Lead Device Settings: MODE: DDD Lower Rate: 60 bpm MIK Delay: Upper Rate: 120 bpm PAV Delay: Procedure Medications: Time Medication Dose Unit Route 09:04 AM Oxygen 2 L/min nasal cannula 09:09 AM Versed 1 Mg Intravenous 09:09 AM Fentanyl 25 Mcg Intravenous 09:09 AM Ancef 1 gram Intravenous 09:23 AM Lidocaine 2% 10 mL Subcutaneous 09:26 AM Lidocaine 2% 8 mL Subcutaneous Contrast: Isovue 0 ml. Complications: No complications occurred during the procedure. Complication None Updated by Wilian Rogers MD, FACC on 02/04/2017 10:08:29 AM electronically signed on 02/04/2017 10:09:16 AM with status of Final
[2017-02-04] MEDS: cloNIDine HCl 0.1 MG TABLET PO SCH ×2 (10:38→21:02)
[2017-02-04] MEDS: Aspirin Enteric Coated 81 MG Tablet PO SCH (10:38)
[2017-02-04] MEDS: Diltiazem CD (24hr) 180 MG CAPSULE PO SCH (10:38)
[2017-02-04] MEDS: *HR* Amiodarone 200 MG TABLET PO SCH (10:38)
[2017-02-04] MEDS: Lisinopril 20 MG TABLET PO SCH (10:38)
--- NOTE | 2017-02-04 16:15 | Internal Med Progress Note ---
Date of Encounter: 02/04/17 Time of Encounter: 10:00 - Assessment and plan (1) Syncope Current Visit: Yes Status: Acute Assessment and plan: Recurrent episodes, sometimes on bending down. To consider cardiac etiology. Orthostatic vitals negative. Echocardiogram unremarkable. B/L carotid Doppler shows carotid artery stenosis, vascular surgery consulted and recommended outpatient follow up. Patient was found second-degree AV block, possibly type II, PPM placed. Qualifiers: Syncope type: unspecified Qualified Code(s): R55 - Syncope and collapse (2) UTI (urinary tract infection) Current Visit: Yes Status: Acute Assessment and plan: Asymptomatic UTI; Urine dipstick suggestive of UTI, but this may be a contaminant since she was recently treated with IV Rocephin and cultures were negative. Off abx now. Qualifiers: Urinary tract infection type: site unspecified Hematuria presence: without hematuria Qualified Code(s): N39.0 - Urinary tract infection, site not specified (3) CAD (coronary artery disease) Current Visit: Yes Status: Chronic Assessment and plan: Continue home medication Qualifiers: Coronary Disease-Associated Artery/Lesion type: [place] artery [place] vs. transplanted heart: [place] heart Associated angina: without angina Qualified Code(s): I25.10 - Atherosclerotic heart disease of [place] coronary artery without angina pectoris (4) HTN (hypertension) Current Visit: Yes Status: Chronic Assessment and plan: BP is high. Increase lisinopril from 20 mg daily to 40 mg daily. Qualifiers: Hypertension type: essential hypertension Qualified Code(s): I10 - Essential (primary) hypertension (5) A-fib Current Visit: Yes Status: Chronic Assessment and plan: Currently rate-controlled. Continue home meds- Amiodarone and Cardizem. Continue long-term anticoagultion with Coumadin; INR is subtherapeutic, bridge with Lovenox while in the hospital. Cardizem dose has been decreased per cardiology. Qualifiers: Atrial fibrillation type: chronic Qualified Code(s): I48.2 - Chronic atrial fibrillation (6) Observed seizure-like activity Current Visit: Yes Status: Acute Assessment and plan: Neurology consult on case. MRI and EEG negative. No seizure medication recommended. Second degree AV block noticed monitoring strip, PPM has been placed. Cardiology consult appreciated (7) Subtherapeutic international normalized ratio (INR) Current Visit: Yes Status: Acute Assessment and plan: Continue coumadin, f/u PT/INR. - Time Spent With Patient 25 - 35 minutes - Subjective Interval history: Patient is a 86-year-old female admitted for seizure-like movement and syncope. Past medical history is significant for A. fib, CAD, hyperlipidemia, hypertension. Patient was seen and examined. patient had pacemaker implant today. she is awake alert, no further seizure-like movement. On pacing rhythm, tolerate well. Improved HTN after increase lisinopril dose. Cardio consult appreciated. We will continue closely monitoring - Constitutional Vitals: Temp Pulse Resp BP Pulse Ox 97.8 F 59 16 133/82 94 L 02/04/17 11:29 02/04/17 11:29 02/04/17 11:29 02/04/17 11:29 02/04/17 11:29 General appearance: Present: A&O X 3, answers questions appropriately - Head Head exam: Present: atraumatic, normocephalic - Eye Eye exam: Present: PERRL, conjuntiva pink, sclera anicteric Pupils: Present: PERRL - Neck Neck exam general surgery: Present: supple, trachea midline. Absent: lymphadenopathy - Respiratory Respiratory exam: Present: CTAB. Absent: accessory muscle use, rales, rhonchi, wheezes - Cardiovascular Cardiovascular exam: Present: RRR, +S1, +S2. Absent: diastolic murmur, gallop, rubs, systolic murmur - GI/Abdominal GI/Abdominal exam: Present: normal bowel sounds, soft, no peritoneal signs. Absent: distended, tenderness - Extremities Exam Extremities exam: Present: warm, radial pulses palpable and symetrical. Absent : calf tenderness, cyanotic, pedal edema - Neurological Exam Neurological exam: Present: CN II-XII intact, oriented X3, no focal deficits. Absent: pronater drift, facial droop, speech deficit - Skin Skin exam: Present: dry, intact Internal Medicine: Result - Labs CBC & Chem 7: 02/03/17 05:39 02/03/17 05:39 - ABG Interpretation ABG results: PT/INR, D-dimer PT 17.9 Seconds (9.4-12.1) H 02/04/17 05:18 - Impressions Impressions Chest X-Ray 02/04/17 10:04 IMPRESSION: 1. Placement of a left-sided cardiac device with leads in the region of the right atrium and right ventricle. No pneumothorax. 2. Mild pulmonary vascular congestion is unchanged. D/ / Alli Coley MD / Alli Coley MD Interpreting Provider: Alli Coley MD Consult Discharge Plan - Plan Instructions: Atrial Fibrillation (DC), Urinary Tract Infection in Women (DC), Syncope (DC), Chronic Hypertension (DC) Referrals: Cesilia Ahn CNP [Advanced Practice Nurse] - 02/07/17 12:30 pm
[2017-02-04] MEDS: *HR* Heparin 5,000 UNIT/ML VIAL SQ SCH (18:41)
[2017-02-04] MEDS: ceFAZolin 2,000 MG in D5% in Water 100 ML IVPB SCH (18:57)
[2017-02-05] MEDS: *HR* Heparin 5,000 UNIT/ML VIAL SQ SCH (05:42)
[2017-02-05] MEDS: ceFAZolin 2,000 MG in D5% in Water 100 ML IVPB SCH (05:42)
[2017-02-05 06:59] LABS: BUN/Creatinine Ratio 18 (6-26); Blood Urea Nitrogen 14 mg/dL (7-20); Calcium 8.2 mg/dL (8.6-10.8); Carbon Dioxide 23 mEq/L (19-29); Chloride 104 mEq/L (98-109); Glucose 132 mg/dL (70-99); Osmolality,Calculated 286 (280-300); Potassium 3.8 mEq/L (3.5-4.5); Sodium 137 mEq/L (136-145); eGFR For African Americans > 60 (> 60); eGFR For Non-African Americans > 60 (> 60)
[2017-02-05 07:08] LABS: Basophils % 0.3 %; Eosinophils # 0.1 K/mcL (0.0-0.6); Eosinophils % 1.1 %; Hematocrit 34.9 % (35.3-44.9); Hemoglobin 11.2 g/dL (11.5-15.4); Immature Granulocytes % 0.5 % (0-4); Lymphocytes # 1.3 K/mcL (0.6-4.6); Lymphocytes % 12.1 %; Mean Corpuscular HGB Conc 32.1 g/dL (31.6-35.5); Mean Corpuscular Hemoglobin 28.6 pg (28.0-33.3); Mean Corpuscular Volume 89.3 fL (83.0-100.0); Mean Platelet Volume 10.8 fL (9.4-12.4); Monocytes # 0.9 K/mcL (0.0-1.3); Monocytes % 8.7 %; Neutrophils # 8.4 K/mcL (1.6-8.9); Platelet Count 196 K/mcL (140-400); Red Blood Count 3.91 M/mcL (3.82-4.97); Red Cell Distribution Width 14.6 % (11.5-14.5); Segmented Neutrophils % 77.3 %
[2017-02-05 07:29] VITALS: BP 145/58
[2017-02-05] MEDS: *HR* Amiodarone 200 MG TABLET PO SCH (08:29)
[2017-02-05] MEDS: cloNIDine HCl 0.1 MG TABLET PO SCH (08:29)
[2017-02-05] MEDS: Diltiazem CD (24hr) 180 MG CAPSULE PO SCH (08:29)
[2017-02-05] MEDS: Lisinopril 20 MG TABLET PO SCH (08:29)
[2017-02-05] MEDS: Aspirin Enteric Coated 81 MG Tablet PO SCH (08:29)
--- NOTE | 2017-02-05 10:52 | Cardiology Progress Note ---
Date of Encounter: 02/05/17 Time of Encounter: 11:00 Assessment and Plan (1) Pacemaker Current Visit: Yes Status: Acute S/p dual chamber, medtronic PPM implant on 02/04/[address] Wilian Rogers. Post day device check is normal. Post day chest x-ray is negative for pneumothorax. Leads are seen in the right atrium and right ventricle. Follow-up with cardiology device clinic and regular follow-up will be made. Activity restrictions reviewed with patient and son. She does not drive. No heavy lifting over 5 pounds for the next month. Dressing care reviewed with patient. Dressing can be removed in 24-48 hours. Steri-Strips will fall off on their own. Keep incision dry and clean. Reportable symptoms of fever, redness or drainage reviewed. (2) Syncope Current Visit: Yes Status: Acute Reports 2 syncopal episodes over the past 3-4 weeks; multiple near syncopal episodes. MRI brain shows acute paranasal sinusitis--defer treatment and mgmt to primary service. BCS: Right ICA moderate 40-59% stenosis and Left ICA severe 60-70% stenosis-- Vascular surgery consulted recommended medical management and outpatient follow- up. TTE: EF 60%, mild , mild TR, and mild PH. 2:1 AV block seen on telemetry during stay. Reviewed with electrophysiology and PPM recommended. S/p PPM placement 02/04/17. No recurrent events. Qualifiers: Syncope type: unspecified Qualified Code(s): R55 - Syncope and collapse (3) A-fib Current Visit: Yes Status: Chronic Reported hx of atrial fibrillation--SR upon exam. On amiodarone and coumadin for AC. Has not previously followed with [facility]. Patient is unsure who she follows for Cardiology. We will make f/u. Restart coumadin in 5 days s/p PPM. Continue amiodarone and cardizem. Qualifiers: Atrial fibrillation type: chronic Qualified Code(s): I48.2 - Chronic atrial fibrillation Discussion w patient/family: The assessment and plan as outlined above was discussed with the patient and/or family members who expressed understanding and agreement. All questions were answered. Thank you for involving us in the care of your patient. Please call with any questions. Subjective Principal diagnosis: AV block Interval history: Ms. Saucedo is s/p PPM for AV block. Denies pain. No events overnight. She is very [place]. Objective Vital Signs, Last 4 Hours Temp Pulse Resp BP Pulse Ox 02/05/17 07:25 98.1 F 66 16 145/58 96 General: Conversant, No Apparent Distress HEENT: Atraumatic, Normocephaly, Mucus Membranes Moist Neck: No JVD, Normal carotid pulses Cardiac: Reg Rate and Rhythm, Normal S1 and S2, No Murmur, Other (Occasinal paced beats.) Lungs: Normal Breath Sounds, No Wheeze, Rales, Rhonchi Neuro: Alert and responsive, No focal deficits noted Abdomen: Soft, Non-Tender Skin: No rashes noted on visualized skin Musculoskeletal: No Chest Wall Tenderness, Other (ANNA dressing D/I. No edema or redness noted. ) Extremities: No Clubbing, No Cyanosis, No Edema, Normal Pulses, Other Results 02/05/17 06:08 02/05/17 06:08 Lab Results 02/05/17 02/05/17 06:08 06:08 WBC 10.8 Hgb 11.2 L Hct 34.9 L Plt Count 196 Sodium 137 Potassium 3.8 Chloride 104 Carbon Dioxide 23 BUN 14 Creatinine 0.79 Glucose 132 H Calcium 8.[address] 01/30/17 21:01 IMPRESSION: Chronic small vessel ischemic change. No acute intracranial abnormality seen. Paranasal sinus disease with small gas fluid levels in the maxillary sinuses, question sinusitis. Cerumen plugs obstructing the external auditory canals bilaterally. D/ / 01/30/2017 21:38:46 George Suresh MD / [facility] Interpreting Provider: George Suresh MD Tibia/Fibula X-Ray 01/31/17 00:00 IMPRESSION: Internal fixation hardware of the distal femur D/ / Oh Beckford MD / Oh Beckford MD Interpreting Provider: Oh Beckford MD Brain MRI 01/31/17 15:18 IMPRESSION: 1. Motion limited evaluation. 2. No acute intracranial abnormality. 3. Mild chronic white matter microvascular ischemic changes. 4. Findings suggest acute paranasal sinusitis. 5. Right mastoid effusion. D/ / Nikhil Moreno MD / Nikhil Moreno MD Interpreting Provider: Nikhil Moreno MD Chest X-Ray 02/05/17 06:00 IMPRESSION: Pacemaker leads project to the right atrium and right ventricle. No evidence of pneumothorax. Small pleural effusions. D/ / Juvenal Briceno MD / Juvenal Briceno MD Interpreting Provider: Juvenal Briceno MD - EKG Interpretation EKG results cardiology: other (Telemetry shows Sr- occasinal AV pacing. No ventricular arrythmias seen.) Consult Discharge Plan - Plan Instructions: Atrial Fibrillation (DC), Urinary Tract Infection in Women (DC), Syncope (DC), Chronic Hypertension (DC) Referrals: Cesilia Ahn CNP [Advanced Practice Nurse] - 02/07/17 12:30 pm
--- NOTE | 2017-02-05 13:19 | Discharge Summary ---
Date of Encounter: 02/05/17 Time of Encounter: 09:00 - Discharge Diagnosis (1) Syncope Priority: Primary Status: Acute Qualifiers: Syncope type: unspecified Qualified Code(s): R55 - Syncope and collapse (2) UTI (urinary tract infection) Priority: Secondary Status: Acute Qualifiers: Urinary tract infection type: site unspecified Hematuria presence: without hematuria Qualified Code(s): N39.0 - Urinary tract infection, site not specified (3) CAD (coronary artery disease) Priority: Secondary Status: Chronic Qualifiers: Coronary Disease-Associated Artery/Lesion type: [place] artery [place] vs. transplanted heart: [place] heart Associated angina: without angina Qualified Code(s): I25.10 - Atherosclerotic heart disease of [place] coronary artery without angina pectoris (4) HTN (hypertension) Priority: Secondary Status: Chronic Qualifiers: Hypertension type: essential hypertension Qualified Code(s): I10 - Essential (primary) hypertension (5) A-fib Priority: Secondary Status: Chronic Qualifiers: Atrial fibrillation type: chronic Qualified Code(s): I48.2 - Chronic atrial fibrillation (6) Observed seizure-like activity Priority: Primary Status: Acute (7) Subtherapeutic international normalized ratio (INR) Priority: Secondary Status: Acute (8) Second degree AV block Priority: Primary Status: Acute - Discharge Medications Prescriptions: Diltiazem CD (24hr) [Cardizem CD] 180 mg PO DAILY #30 cap.er.24h Lisinopril [Zestril] 40 mg PO DAILY #60 tablet Home Medications: Amiodarone HCl [Pacerone] 200 mg PO DAILY 01/14/17 [History] Pantoprazole Sodium [Protonix] 40 mg PO DAILY 01/14/17 [History] Warfarin [Coumadin] 2.5 mg PO QPM 01/14/17 [History] Aspirin [Lo-Dose Aspirin EC] 81 mg PO DAILY 01/30/17 [History] CloNIDine HCl [Clonidine HCl] 0.1 mg PO BID 01/30/17 [History] Diltiazem CD (24hr) [Cardizem CD] 180 mg PO DAILY #30 cap.er.24h 02/05/17 [Rx] Lisinopril [Zestril] 40 mg PO DAILY #60 tablet 02/05/17 [Rx] Allergies/Adverse Reactions: Allergies No Known Allergies Allergy (Verified 10/18/16 19:54) Procedures/tests Complete & Pending: Procedures Performed prior 72 hours Category Date Time Status CL Insert Permanent Pacemaker [CL] Routine Housing Installer 02/04/17 08:00 Completed ECG holter monitor [ECG] Routine Y 02/02/17 15:35 Completed - Notes to Outpatient Provider 1. Patient has A. fib, on Coumadin 2.5 mg daily. Coumadin is on hold now because of PPM implant, will restart Coumadin after 5 days per cardiology recommendation. Please follow up PT/INR. 2. Patient has plasm metanephrine sample sent, results pending, please follow up. Date of admission: 01/30/17 22:30 Primary care physician: PCP NO Consults: 01/30/17 23:23 Consult to Foundation Stage Teacher [CONS] Routine Reason for SW Consult: pt over 84 01/31/17 15:02 Consult to Neurology [CONS] Routine Consulting Provider: [facility] Reason for Consult: Recurrent syncope, seizure-like activity Call Completed: Yes 02/01/17 11:04 Consult to Interpret Exam [CONS] Routine Consulting Provider: Raghavendra Colin I Consult to Interpret Exam: Interpret EEG 02/01/17 16:18 Consult to Vascular Surgery [CONS] Routine Consulting Provider: Vascular Surgery [facility] Reason for Consult: Carotid stenosis Call Completed: Yes 02/03/17 07:14 Consult to Cardiology [CONS] Routine Comment: Consulting Provider: Cardiology [facility] Reason for Consult: Seizure like movements last 10 seconds, suspect arrhythmia Call Completed: No Discharging clinician: Emily Peña Anticipated date of discharge: 02/05/17 - Patient Status Disposition: Home Health Service Condition: Fair Overall status at discharge: patient is back to baseline - Discharge Instructions Instructions: Atrial Fibrillation (DC), Urinary Tract Infection in Women (DC), Syncope (DC), Chronic Hypertension (DC) Follow Up With: Cesilia Ahn CNP [Advanced Practice Nurse] - 02/07/17 12:30 pm - Diet and Activity Activity: as per physical therapy Diet: low fat, low cholesterol, low salt diet Interval History: Ms. Saucedo is a 86 year old female with PMH of HTN and a fib who presents to the ER after a syncopal episode this afternoon. She was bending down to pick something up off the floor and when she stood up, so lost consciousness. She was unconscious for a few minutes according to her granddaughter, who caught her and lowered her to the ground. There was no post-ictal phase. On my questioning, the patient states that she has a dizzy headache x1 week. She was admitted at [place] on for a similar episode. Patient states she also went to [place] ER and was not admitted. She thinks she saw her PCP for this and was sent to the ER. She cannot remember her PCP's name, but knows that she goes to [facility]. (No family present at time of interview.) Hospital course: Ms. Saucedo is a 86 year old female admitted for syncope and seizure-like movement. She was placed on cardiac monitoring, echo and duplex of carotid has been done. Results reveals mild to moderate carotid stenosis. Neurology consult was called, MRI and EEG has been done, not considering seizure. Vascular surgery consult was called for carotid stenosis, recommended outpatient follow-up. Cardiology consult was called and the telemetry strip has been reviewed, patient was found second-degree AV block. PPM has been placed. After 24-hour observation, PPM works well. Discussed with cardiology, will discharge patient home today and follow up as outpatient with cardiology. I saw and examined the patient today. She is awake alert, oriented 3. Vitals are stable. Heart rate 60s. No further syncope or seizure-like movement. Patient with discharge home with home health. Restart Coumadin after 5 days per cardiology recommendation. Patient will follow-up with PCP and cardiology as outpatient. - Time Spent with Patient Total time spent providing and/or coordinating discharge services: 40 minutes. Greater than 30 minutes - Constitutional Vitals: Temp Pulse Resp BP Pulse Ox 98.1 F 66 16 145/58 96 02/05/17 07:25 02/05/17 07:25 02/05/17 07:25 02/05/17 07:25 02/05/17 07:25 General appearance: Present: A&O X 3, answers questions appropriately - Head Head exam: Present: atraumatic, normocephalic - Eye Eye exam: Present: PERRL, conjuntiva pink, sclera anicteric Pupils: Present: PERRL - Neck Neck exam general surgery: Present: supple, trachea midline. Absent: lymphadenopathy - Respiratory Respiratory exam: Present: CTAB. Absent: accessory muscle use, rales, rhonchi, wheezes - Cardiovascular Cardiovascular exam: Present: RRR, +S1, +S2. Absent: diastolic murmur, gallop, rubs, systolic murmur - GI/Abdominal GI/Abdominal exam: Present: normal bowel sounds, soft, no peritoneal signs. Absent: distended, tenderness - Extremities Exam Extremities exam: Present: warm, radial pulses palpable and symetrical. Absent : calf tenderness, cyanotic, pedal edema - Neurological Exam Neurological exam: Present: CN II-XII intact, oriented X3, no focal deficits. Absent: pronater drift, facial droop, speech deficit - Skin Skin exam: Present: dry, intact
--- NOTE | 2017-02-05 13:31 | Physician Discharge Referral ---
Home Health/Hosp Referral Info Transfer to: Home Health - Diagnosis (1) Syncope Status: Acute (2) UTI (urinary tract infection) Status: Acute (3) CAD (coronary artery disease) Status: Chronic (4) HTN (hypertension) Status: Chronic (5) A-fib Status: Chronic (6) Observed seizure-like activity Status: Acute (7) Subtherapeutic international normalized ratio (INR) Status: Acute (8) Second degree AV block Status: Acute - Respiratory Orders Smoking Cessation: Smoking cessation has been advised. For more information, call the [place] Tobacco Quit Line at 9-261-CFJW-NOW. - Diet/Nutrition Diet/Nutrition Orders: Cardiac - Services Needed Following services are medically necessary services: Nursing, Home Health Aide, Physical Therapy, Occupational Therapy Other Treatments: Please draw blood for PT/INR in 12 days (02/17/17) - Transfer Medications Prescriptions: Diltiazem CD (24hr) [Cardizem CD] 180 mg PO DAILY #30 cap.er.24h Lisinopril [Zestril] 40 mg PO DAILY #60 tablet Home Medications: Amiodarone HCl [Pacerone] 200 mg PO DAILY 01/14/17 [History] Pantoprazole Sodium [Protonix] 40 mg PO DAILY 01/14/17 [History] Warfarin [Coumadin] 2.5 mg PO QPM 01/14/17 [History] Aspirin [Lo-Dose Aspirin EC] 81 mg PO DAILY 01/30/17 [History] CloNIDine HCl [Clonidine HCl] 0.1 mg PO BID 01/30/17 [History] Diltiazem CD (24hr) [Cardizem CD] 180 mg PO DAILY #30 cap.er.24h 02/05/17 [Rx] Lisinopril [Zestril] 40 mg PO DAILY #60 tablet 02/05/17 [Rx] Allergies/Adverse Reactions: Allergies No Known Allergies Allergy (Verified 10/18/16 19:54) Certification: Further, I certify that my clinical findings support that this patient is homebound (i.e. absences from home require considerable and taxing effort and are for medical reasons or jewish services or infrequently or short duration when for other reasons) because: Homebound Reason: Patient requires assistance of a person or device to safely leave home Attestation: My signature below is to certify that this patient is under my care and that I, or nurse practitioner, or a physician's billing assistant working with me, has a face-to -face encounter with this patient.
[2017-02-05 20:09] LABS: Metanephrine, Plasma <0.10 nmol/L (0.00-0.49)
--- NOTE | 2017-02-07 10:25 | Holter Monitor Report ---
[address] [address] Test Date: 2017-02-03 Pat Name: Clara Saucedo Department: Room: 2NE21 Gender: Child Care Director: Sary Hebert : 1930 Requested By: Toribio Montero DO Order Number: [id number] Reading MD: Toribio Montero DO Interpretive Statements [address] [place] [address] Monitor Duration: 48 Indications: R/O ARRHYTHMIA Recording Time: 19:55 Time Analyzed: 19:50 Quality of Tracing: fair Diary: NO Description of symptoms: NO ECG demonstrates: Sinus rhythm, right bundle branch block. 01/31/2017. Totals: There were 49898 total beats, including ectopy. Average HR was 60. Minimum HR of 60 occurred at 16:35D1 and maximum HR of 80 occurred at 19:30D1. Ventricular Ectopy consisted of 135 total beats averaging 6.8 beats per hour, 2 paired PVCs. Supraventricular Ectopy consisted of 23 total beats averaging 1.2 per hour. There were 21 single PACs, 2 paired PACs, and 0 runs of SVT. There is NO evidence of any pauses or bradycardia events. Impression: 1. Diary was not returned. 2. Rare PACs. 3. Infrequent PVCs. 4. No sustained arrhythmias. Electronically Signed On 02-07-2017 10:24:01 EDT by Toribio Montero DO
== END 2017-02-05 14:50 | disposition home health service (06) ==
LOC: 2NENU 20:10 → EMEROO 20:10 → SUATTDRO 22:30 → 2NENU 23:05
PROVIDERS: ADMIT Internal Medicine; ATTEND Internal Medicine

== ENCOUNTER 2017-02-21 15:46 | Inpatient (IN) ==
[2017-02-21] MEDS ORDERED: Ipratropium/Albuterol Neb 3 ML IH ONE (16:17)
--- NOTE | 2017-02-21 16:32 | Emergency Department Note ---
Disposition Clinical Impression: Congestive heart failure Qualifiers: Congestive heart failure type: unspecified congestive heart failure type Congestive heart failure chronicity: acute on chronic Qualified Code(s): I50.9 - Heart failure, unspecified Disposition: Admitted As Inpatient Condition: Undetermined Referrals: NO,PCP [Primary Care Provider] - Forms: ED Satisfaction Letter Time of Disposition: 17:58 SOB HPI - General Chief Complaint: ED Shortness of Breath/Dyspnea Stated Complaint: GAYE-congestion Time Seen by Provider: 02/21/17 16:10 Source: patient, family Mode of arrival: wheelchair Limitations: no limitations Nursing Notes Reviewed: Yes Vital Signs Reviewed: Yes - History of Present Illness 86-year-old female with history of atrial fibrillation arrives [facility] emergency department complaining of shortness of breath earlier today. The patient arrived to [facility] emergency department waiting area and was noted to have oxygen saturation of 80% on room air. The patient was quickly placed on 2 L oxygen which was her oxygen level to 93%. The patient is supposedly prescribed 2 nebs at home which she does not have a nebulizer for. The patient denies any chest pain associated with the patient's breathing. Patient denies any other complaints at this time. She apparently got a small argument with her daughter and that is where she got flustered and slightly short of breath. Patient states that she still felt short of breath is speaking full sentences. The patient denies any other complaints at this time. Pt Subjective Complaint: shortness of breath Onset (ago): hour(s) (2) Severity: mild Consistency/Duration: intermittent Improves with: nothing Worsens with: nothing Associated symptoms: Reports: cough, wheezing Treatment prior to arrival: oxygen Cough present: No Sputum production: No - Related Data Home oxygen amount: none Home Medications Medication Instructions Recorded Confirmed Amiodarone HCl [Pacerone] 200 mg PO DAILY 01/14/17 01/31/17 Pantoprazole Sodium [Protonix] 40 mg PO DAILY 01/14/17 01/31/17 Warfarin [Coumadin] 2.5 mg PO QPM 01/14/17 01/31/17 Aspirin [Lo-Dose Aspirin EC] 81 mg PO DAILY 01/30/17 01/31/17 CloNIDine HCl [Clonidine HCl] 0.1 mg PO BID 01/30/17 01/31/17 Previous Rx's Medication Instructions Recorded Diltiazem CD (24hr) [Cardizem CD] 180 mg PO DAILY #30 cap.er.24h 02/05/17 Lisinopril [Zestril] 40 mg PO DAILY #60 tablet 02/05/17 Allergies Allergy/AdvReac Type Severity Reaction Status Date / Time No Known Allergies Allergy Verified 10/18/16 19:54 Review of Systems: Review of Systems Constitutional: Denies fevers, chills, night sweats HEENT: Denies headache, blurry vision, eye pain, tinnitus, vertigo, sore throat , neck or thyroid masses Respiratory: Denies cough, sputum change, hemoptysis, admits to dyspnea Cardiac: Denies chest pain, pressure, palpitations, dyspnea on exertion, pedal edema Gastrointestinal: Denies abdominal pain, changes in bowel habits, vomiting, nausea, hematemesis, hematochezia Genitourinary: Denies dysuria, hematuria, nocturia, change in frequency, urgency, incontinence Neurologic: Denies headaches, dizziness, syncope, focalized weakness, paraesthesias, weakness Musculoskeletal: Denies back pain, joint pain, myalgias All systems ED: reviewed and negative except as stated. Past Medical History - Past Medical History Attestation: Yes The following information was validated with the patient. Source: patient Medical history: Reports: coronary artery disease, hyperlipidemia, hypertension , myocardial infarction, seizures Surgical history: Reports: orthopedic, other Psychiatric history: Reports: no psych history - Social History Smoking Status: Former smoker Smokeless Tobacco Status: No Alcohol use: Reports: none Drug use: Reports: none Physical Exam Physical Exam: General: Patient alert, no acute distress, not lethargic, patient speaking in small sentences. She is slightly tachypneic without any accessory muscle use HEENT: Head normal inspection, atraumatic, PERRLA, oropharynx grossly intact and normal, trachea midline, no JVD Chest: Nontraumatic, nontender, normal chest rise CV: RRR with no murmurs, rubs, gallops Respiratory: Coarse breath sounds bilaterally with rhonchi noted in right lower lobe, wheezing noted on the right side. Abdomen: Normal inspection, Normal bowel sounds 4 quadrants, nontender to palpation : Patient deferred Extremities: Normal inspection, full range of motion, appropriate pulses, capillary refill under 2 seconds Neurological: Patient alert and oriented 3, cranial nerves II through XII grossly intact, GCS 15 Skin: Warm, intact, no rashes noted - General Limitations: no limitations General appearance: alert, in no apparent distress Course Vital Signs Temperature 98.3 F 02/21/17 16:02 Pulse Rate 100 02/21/17 16:02 Respiratory Rate 16 02/21/17 16:02 Blood Pressure 135/78 02/21/17 16:02 O2 Sat by Pulse Oximetry 88 L 02/21/17 16:02 Temperature 98.3 F 02/21/17 16:02 Pulse Rate 100 02/21/17 16:02 Respiratory Rate 16 02/21/17 16:26 Blood Pressure 135/78 02/21/17 16:02 O2 Sat by Pulse Oximetry 93 L 02/21/17 16:26 Oxygen Delivery Oxygen Delivery Room Air Shortness of Breath/Dyspnea - MDM Narrative Medical decision making narrative: Patient appears to have a little bit of an acute exacerbation of CHF given bilateral pleural effusions. The patient's EKG demonstrates a paced rhythm. The patient's oxygen saturations improved on 2 L nasal cannula to 93%. The patient is resting comfortably in bed without any chest pain at this time. We will admit the patient to the hospital for CHF exacerbation or hypoxia at this time. Patient accepted by nurse practitioner associated with hospitalist. - Medical Records Medical records reviewed: Yes I reviewed the patient's medical records. - Lab Data Lab results reviewed: Yes I reviewed the patient's lab results. Result diagrams: 02/21/17 17:03 02/21/17 17:03 Lab Results 02/21/17 02/21/17 02/21/17 Range/Units 17:03 17:03 17:03 WBC 13.5 H (4.3-11.1) K/mcL RBC 4.84 (3.82-4.97) M/mcL Hgb 13.4 (11.5-15.4) g/dL Hct 42.6 (35.3-44.9) % MCV 88.0 (83.0-100.0) fL MCH 27.7 L (28.0-33.3) pg MCHC 31.5 L (31.6-35.5) g/dL RDW 14.5 (11.5-14.5) % Plt Count 304 (140-400) K/mcL MPV 10.0 (9.4-12.4) fL PT (9.4-12.1) Seconds INR APTT (26.0-36.0) Seconds Sodium 138 (136-145) mEq/L Potassium 4.0 (3.5-4.5) mEq/L Chloride 103 (98-109) mEq/L Carbon Dioxide 22 (19-29) mEq/L BUN 32 H (7-20) mg/dL Creatinine 0.94 (0.57-1.11) mg/dL Est GFR ( Amer) > 60 (> 60) Est GFR (Non-Af Amer) 56 L (> 60) BUN/Creatinine Ratio 34 H (6-26) Glucose 156 H (70-99) mg/dL Calculated Osmolality 296 (280-300) Calcium 9.9 (8.6-10.8) mg/dL Troponin I 0.03 (0-0.03) ng/mL 02/21/17 Range/Units 17:03 WBC (4.3-11.1) K/mcL RBC (3.82-4.97) M/mcL Hgb (11.5-15.4) g/dL Hct (35.3-44.9) % MCV (83.0-100.0) fL MCH (28.0-33.3) pg MCHC (31.6-35.5) g/dL RDW (11.5-14.5) % Plt Count (140-400) K/mcL MPV (9.4-12.4) fL PT 48.6 H* D (9.4-12.1) Seconds INR 4.3 D APTT 41.8 H (26.0-36.0) Seconds Sodium (136-145) mEq/L Potassium (3.5-4.5) mEq/L Chloride (98-109) mEq/L Carbon Dioxide (19-29) mEq/L BUN (7-20) mg/dL Creatinine (0.57-1.11) mg/dL Est GFR ( Amer) (> 60) Est GFR (Non-Af Amer) (> 60) BUN/Creatinine Ratio (6-26) Glucose (70-99) mg/dL Calculated Osmolality (280-300) Calcium (8.6-10.8) mg/dL Troponin I (0-0.03) ng/mL - Radiology Data Radiology results reviewed: Yes I reviewed the patient's radiology results. - EKG Data EKG attestation: Yes I reviewed and interpreted this EKG. EKG results narrative: Heart rate 94 bpm. Electronic ventricular pacemaker noted. No acute changes noted.
[2017-02-21 17:17] LABS: Hematocrit 42.6 % (35.3-44.9); Hemoglobin 13.4 g/dL (11.5-15.4); Mean Corpuscular HGB Conc 31.5 g/dL (31.6-35.5); Mean Corpuscular Hemoglobin 27.7 pg (28.0-33.3); Platelet Count 304 K/mcL (140-400); Red Blood Count 4.84 M/mcL (3.82-4.97); Red Cell Distribution Width 14.5 % (11.5-14.5)
[2017-02-21 17:26] LABS: Activated Partial Thrombo Time 41.8 Seconds (26.0-36.0)
[2017-02-21 17:29] LABS: INR 4.3
[2017-02-21 17:30] LABS: BUN/Creatinine Ratio 34 (6-26); Blood Urea Nitrogen 32 mg/dL (7-20); Calcium 9.9 mg/dL (8.6-10.8); Carbon Dioxide 22 mEq/L (19-29); Chloride 103 mEq/L (98-109); Glucose 156 mg/dL (70-99); Osmolality,Calculated 296 (280-300); Sodium 138 mEq/L (136-145); eGFR For African Americans > 60 (> 60); eGFR For Non-African Americans 56 (> 60)
[2017-02-21 17:31] LABS: Prothrombin Time 48.6 Seconds (9.4-12.1)
[2017-02-21] MEDS ORDERED: Furosemide 20 MG/2 ML VIAL IVP ONE (17:47)
[2017-02-21 18:01] LABS: Lymphocytes # 2.7 K/mcL (0.6-4.6); Monocytes # 0.8 K/mcL (0.0-1.3)
[2017-02-21 18:02] LABS: Platelet Estimate Normal (Normal)
--- NOTE | 2017-02-21 19:03 | Emergency Department Note ---
Disposition Clinical Impression: Congestive heart failure Qualifiers: Congestive heart failure type: unspecified congestive heart failure type Congestive heart failure chronicity: acute on chronic Qualified Code(s): I50.9 - Heart failure, unspecified Disposition: Admitted As Inpatient Condition: Undetermined General Adult HPI - General Chief complaint: ED Shortness of Breath/Dyspnea Stated complaint: GAYE-congestion Time Seen by Provider: 02/21/17 16:10 Source: patient, family Mode of arrival: wheelchair Limitations: no limitations - History of Present Illness Pain Scale: 0 - Related Data Home Medications Medication Instructions Recorded Confirmed Amiodarone HCl [Pacerone] 200 mg PO DAILY 01/14/17 02/21/17 Pantoprazole Sodium [Protonix] 40 mg PO DAILY 01/14/17 02/21/17 Warfarin [Coumadin] 2.5 mg PO QPM 01/14/17 02/21/17 Aspirin [Lo-Dose Aspirin EC] 81 mg PO DAILY 01/30/17 02/21/17 CloNIDine HCl [Clonidine HCl] 0.1 mg PO BID 01/30/17 02/21/17 Lisinopril [Zestril] 40 mg PO DAILY 02/21/17 02/21/17 Previous Rx's Medication Instructions Recorded Diltiazem CD (24hr) [Cardizem CD] 180 mg PO DAILY #30 cap.er.24h 02/05/17 Allergies Allergy/AdvReac Type Severity Reaction Status Date / Time No Known Allergies Allergy Verified 10/18/16 19:54 Past Medical History - Past Medical History Medical history: Reports: coronary artery disease, hyperlipidemia, hypertension , myocardial infarction, seizures Surgical history: Reports: orthopedic, other Psychiatric history: Reports: no psych history - Social History Smoking Status: Former smoker Smokeless Tobacco Status: No Alcohol use: Reports: none Drug use: Reports: none Physical Exam - General Limitations: no limitations General appearance: alert, in no apparent distress Course - Reevaluation(s) Reevaluation #1: I saw the patient with the resident, Dr. Gong. Patient presented with shortness of breath. She had a low O2 sats as well. Evaluation shows evidence of congestive heart failure. Lab workup is okay. Patient is improving with treatment. She is to be admitted to the hospital for further treatment. Time: 19:04 Vital Signs Temperature 98.3 F 02/21/17 16:02 Pulse Rate 100 02/21/17 16:02 Respiratory Rate 16 02/21/17 16:02 Blood Pressure 135/78 02/21/17 16:02 O2 Sat by Pulse Oximetry 88 L 02/21/17 16:02 Temperature 98.3 F 02/21/17 16:02 Pulse Rate 100 02/21/17 16:02 Respiratory Rate 16 02/21/17 16:26 Blood Pressure 135/78 02/21/17 16:02 O2 Sat by Pulse Oximetry 93 L 02/21/17 16:26 Oxygen Delivery Oxygen Delivery Room Air Medical Decision Making - Lab Data Result diagrams: 02/21/17 17:03 02/21/17 17:03 Lab Results 02/21/17 02/21/17 02/21/17 Range/Units 17:03 17:03 17:03 WBC 13.5 H (4.3-11.1) K/mcL RBC 4.84 (3.82-4.97) M/mcL Hgb 13.4 (11.5-15.4) g/dL Hct 42.6 (35.3-44.9) % MCV 88.0 (83.0-100.0) fL MCH 27.7 L (28.0-33.3) pg MCHC 31.5 L (31.6-35.5) g/dL RDW 14.5 (11.5-14.5) % Plt Count 304 (140-400) K/mcL MPV 10.0 (9.4-12.4) fL Seg Neutrophils % 52.0 % Band Neutrophils % 22.0 H (0-4) % Lymphocytes % 20.0 % Monocytes % 6.0 % Neutrophils # 10.0 H (1.6-8.9) K/mcL Lymphocytes # 2.7 (0.6-4.6) K/mcL Monocytes # 0.8 (0.0-1.3) K/mcL Platelet Estimate Normal (Normal) PT (9.4-12.1) Seconds INR APTT (26.0-36.0) Seconds Sodium 138 (136-145) mEq/L Potassium 4.0 (3.5-4.5) mEq/L Chloride 103 (98-109) mEq/L Carbon Dioxide 22 (19-29) mEq/L BUN 32 H (7-20) mg/dL Creatinine 0.94 (0.57-1.11) mg/dL Est GFR ( Amer) > 60 (> 60) Est GFR (Non-Af Amer) 56 L (> 60) BUN/Creatinine Ratio 34 H (6-26) Glucose 156 H (70-99) mg/dL Calculated Osmolality 296 (280-300) Calcium 9.9 (8.6-10.8) mg/dL Troponin I 0.03 (0-0.03) ng/mL 02/21/17 Range/Units 17:03 WBC (4.3-11.1) K/mcL RBC (3.82-4.97) M/mcL Hgb (11.5-15.4) g/dL Hct (35.3-44.9) % MCV (83.0-100.0) fL MCH (28.0-33.3) pg MCHC (31.6-35.5) g/dL RDW (11.5-14.5) % Plt Count (140-400) K/mcL MPV (9.4-12.4) fL Seg Neutrophils % % Band Neutrophils % (0-4) % Lymphocytes % % Monocytes % % Neutrophils # (1.6-8.9) K/mcL Lymphocytes # (0.6-4.6) K/mcL Monocytes # (0.0-1.3) K/mcL Platelet Estimate (Normal) PT 48.6 H* D (9.4-12.1) Seconds INR 4.3 D APTT 41.8 H (26.0-36.0) Seconds Sodium (136-145) mEq/L Potassium (3.5-4.5) mEq/L Chloride (98-109) mEq/L Carbon Dioxide (19-29) mEq/L BUN (7-20) mg/dL Creatinine (0.57-1.11) mg/dL Est GFR ( Amer) (> 60) Est GFR (Non-Af Amer) (> 60) BUN/Creatinine Ratio (6-26) Glucose (70-99) mg/dL Calculated Osmolality (280-300) Calcium (8.6-10.8) mg/dL Troponin I (0-0.03) ng/mL Attestation Statement - Attestation Attestation: I, Dr. Goodwin, examined this patient [id number] and my medical decision- making was reviewed with Dr. Gong, Resident Physician. I agree with the documented findings, disposition and treatment plan as described except to the extent set forth below. Please see my progress notes for details.
[2017-02-21] MEDS ORDERED: Acetaminophen 325 MG TABLET PO PRN (21:22)
[2017-02-21] MEDS ORDERED: Ondansetron 4 MG/2 ML VIAL IVP PRN (21:22)
[2017-02-21] MEDS ORDERED: Naloxone 0.4 MG/ML INJ IVP PRN (21:22)
[2017-02-21] MEDS ORDERED: Ipratropium/Albuterol Neb 3 ML IH PRN (21:29)
--- NOTE | 2017-02-21 21:33 | Internal Med History&Physical ---
Date of Encounter: 02/21/17 Time of Encounter: 21:00 Assessment and Plan (1) Pneumonia Current visit: Yes Status: Acute patient presents with cough, productive of yellow phlegm, pleural effusions R>L , leukocytosis. Concerning for pneumonia. We will give as needed DuoNeb treatments Levaquin 750 mg every 48 hour Prednisone 20 mg daily Patient placed on telemetry Maintain continuous pulse extremity Supplemental oxygen as needed, wean as tolerated We will obtain sputum and blood cultures We will test for influenza Obtain legionella and strep antigens Urine culture Qualifiers: Pneumonia type: due to unspecified organism Laterality: right Lung location: lower lobe of lung Qualified Code(s): J18.1 - Lobar pneumonia, unspecified organism (2) A-fib Current visit: No Status: Chronic Patient has chronic atrial fibrillation and is currently on warfarin. INR is supratherapeutic. Hold warfarin Qualifiers: Atrial fibrillation type: chronic Qualified Code(s): I48.2 - Chronic atrial fibrillation (3) CAD (coronary artery disease) Current visit: No Status: Chronic Patient has history of CAD, on several medications at home. No current concern for ACS Continue home aspirin and hypertension medications Qualifiers: Coronary Disease-Associated Artery/Lesion type: [place] artery [place] vs. transplanted heart: [place] heart Associated angina: with unspecified angina Qualified Code(s): I25.119 - Atherosclerotic heart disease of [place] coronary artery with unspecified angina pectoris (4) HTN (hypertension) Current visit: No Status: Chronic The chest history of hypertension on several medications at home including clonidineand diltiazem We will continue home medications Qualifiers: Hypertension type: essential hypertension Qualified Code(s): I10 - Essential (primary) hypertension (5) Pacemaker Current visit: No Status: Acute Patient had dual-chamber pacemaker placed on 02/04/17 (6) DVT prophylaxis Current visit: Yes Status: Acute Patient currently supratherapeutic INR Hold warfarin Intermittent compression devices (7) Supratherapeutic INR Current visit: Yes Status: Acute Home warfarin held 5 mg vitamin K ordered Internal Medicine - H&P: HPI Chief complaint: Increased shortness of breath recently Admitted From: Home Plans for Post Hospital Care: Home History of present illness: Ms. Saucedo is a 86 year old female with medical history significant for paroxysmal atrial fibrillation, CAD (w/ prior CA), seizures, hyperension, and hyperlipidemia who has had a recent dual-chamber pacemaker placed on 02/04/17 presented to [facility] due to increased shortness of breath. She states that she has been having increased shortness of breath for about 3 weeks, during this time frame she has been feeling like she has "had a cold." She reports that she developed a cough in the past week, that has been productive of yellow sputum. Her shortness of breath finally got so bad, that her family brought her in to the hospital. She denies having any other problems recently, denying fever/chills, CP, nausea/ vomiting, weakness, abdominal pain, diarrhea/constipation, hematachezia, melena , dysuria, or hematuria. Past Med Surg Social Fam HX - Past Medical History Medical history: coronary artery disease, hyperlipidemia, hypertension, myocardial infarction, seizures Psychiatric history: no psych history - Past Surgical History Surgical History: orthopedic, other - Social History Smoking Status: Former smoker Smokeless Tobacco Status: No Alcohol use: none Drug use: none - Family History Son Adopted: No Living Status: Hx Family Cancer: Yes (not sure of type) Internal Medicine - H&P: Meds Amiodarone HCl [Pacerone] 200 mg PO DAILY 01/14/17 [History] Pantoprazole Sodium [Protonix] 40 mg PO DAILY 01/14/17 [History] Warfarin [Coumadin] 2.5 mg PO QPM 01/14/17 [History] Aspirin [Lo-Dose Aspirin EC] 81 mg PO DAILY 01/30/17 [History] CloNIDine HCl [Clonidine HCl] 0.1 mg PO BID 01/30/17 [History] Diltiazem CD (24hr) [Cardizem CD] 180 mg PO DAILY #30 cap.er.24h 02/05/17 [Rx] Lisinopril [Zestril] 40 mg PO DAILY 02/21/17 [History] Allergies No Known Allergies Allergy (Verified 10/18/16 19:54) - Constitutional Constitutional: weakness, no chills, no fatigue, no fever(s) - EENT Nose, mouth and throat: no dysphagia, no nasal discharge, no neck pain, no sore throat - Cardiovascular Cardiovascular ROS IM: dyspnea, no chest pain, no diaphoresis, no lightheadedness, no orthopnea, no palpitations, no syncope - Respiratory Respiratory: cough, no dyspnea, no wheezing, no excessive phlegm production - Gastrointestinal Gastrointestinal: no abdominal pain, no constipation, no diarrhea, no hematemesis, no hematochezia, no melena, no nausea, no vomiting - Genitourinary Genitourinary: no dysuria, no hematuria - Musculoskeletal Musculoskeletal ROS IM: no numbness, no tingling - Neurological Neurological ROS: no confusion, no convulsions, no focal weakness, no numbness, no tingling, no tremor(s), no weakness - Constitutional Vitals: Temp Pulse Resp BP Pulse Ox 98.8 F 109 22 141/63 94 L 02/21/17 20:22 02/21/17 20:22 02/21/17 20:22 02/21/17 20:22 02/21/17 20:22 Exam: General: Cooperative, pleasant, no acute distress, alert and oriented 3, answers questions appropriately, hard of hearing (especially on right) Head: Normocephalic, atraumatic Eye: Conjunctiva pink, sclera anicteric, EOMI, PERRL Neck: Supple, trachea midline Respiratory: No accessory muscle usage, bilateral Rales auscultated R>L Cardiovascular: Regular rate and rhythm, S1 and S2 present, no murmurs/rubs/ gallops/clicks appreciated GI/abdominal: Nondistended, nontender, soft, normal bowel sounds, no peritoneal signs Extremities: No calf tenderness, noncyanotic, no pedal edema appreciated, warm, lower extremity pulses palpable and symmetrical Neurological: Alert and oriented 3, no facial droop, no focal deficits Skin: Dry, intact, normal color Internal Med - H&P Results - Labs CBC & Chem 7: 02/21/17 17:03 02/21/17 17:03 - Impressions Impressions Chest X-Ray 02/21/17 16:17 IMPRESSION: Findings suggesting persistent CHF. Developing bilateral pleural effusions, right greater than left. No pneumothorax. D/ / Yusuf Penn MD / Yusuf Penn MD Interpreting Provider: Yusuf Penn MD
[2017-02-21] MEDS ORDERED: Levofloxacin 750 MG/150 ML 750 MG/150 ML BAG IVPB SCH (22:00)
[2017-02-21] MEDS: predniSONE 20 MG TABLET PO SCH (22:31)
[2017-02-22 01:53] LABS: Bilirubin,Urine Small (Negative); Blood,Urine Negative (Negative); Clarity,Urine Cloudy (Clear); Color,Urine Dark Yellow (Yellow); Glucose,Urine (UA) Normal (Normal); Ketones,Urine Negative (Negative); Leukocyte Esterase,Urine Moderate (Negative); Nitrite,Urine Negative (Negative); Protein,Urine Trace mg/dL (Neg-Trace); Urobilinogen,Urine Normal (Normal)
[2017-02-22 01:55] LABS: Bacteria,Urine Few per hpf (None-Few); Hyaline Casts,Urine Few per lpf (None-Few); Squamous Epithelial Cell,Urine Many per lpf (None-Few)
[2017-02-22 06:52] LABS: Hematocrit 39.7 % (35.3-44.9); Hemoglobin 12.7 g/dL (11.5-15.4); Lymphocytes # 0.5 K/mcL (0.6-4.6); Mean Corpuscular Hemoglobin 28.3 pg (28.0-33.3); Mean Corpuscular Volume 88.6 fL (83.0-100.0); Mean Platelet Volume 10.1 fL (9.4-12.4); Platelet Count 283 K/mcL (140-400); Red Blood Count 4.48 M/mcL (3.82-4.97); Red Cell Distribution Width 14.6 % (11.5-14.5)
[2017-02-22 07:03] LABS: Activated Partial Thrombo Time 44.1 Seconds (26.0-36.0)
[2017-02-22 07:04] LABS: INR 5.9; Prothrombin Time 66.9 Seconds (9.4-12.1)
[2017-02-22 07:11] LABS: Alanine Aminotransferase 11 Units/L (0-55); Albumin 2.6 g/dL (3.5-5.0); Albumin/Globulin Ratio 0.6 (1.1-2.2); Alkaline Phosphatase 76 Units/L (38-126); Aspartate Amino Transferase 12 Units/L (5-34); BUN/Creatinine Ratio 39 (6-26); Bilirubin,Total 0.5 mg/dL (0.2-1.2); Blood Urea Nitrogen 34 mg/dL (7-20); Calcium 9.5 mg/dL (8.6-10.8); Carbon Dioxide 26 mEq/L (19-29); Chloride 102 mEq/L (98-109); Globulin 4.3 g/dL (2.4-3.5); Glucose 173 mg/dL (70-99); Osmolality,Calculated 298 (280-300); Potassium 4.3 mEq/L (3.5-4.5); Sodium 138 mEq/L (136-145); Total Protein 6.9 g/dL (6.0-8.3); eGFR For African Americans > 60 (> 60); eGFR For Non-African Americans > 60 (> 60)
[2017-02-22 08:06] LABS: Monocytes # 0.7 K/mcL (0.0-1.3); Neutrophils # 7.7 K/mcL (1.6-8.9)
[2017-02-22 08:07] LABS: Platelet Estimate Normal (Normal)
--- NOTE | 2017-02-22 08:26 | Electrocardiograph Report ---
[place] [id number] Test Date: 2017-02-21 Pat Name: Clara Saucedo Department: 105 Room: 2N2 Gender: F Mission Coordinator: ISAÍAS : 1930 Requested By: Elgin Gong Order Number: [id number] Reading MD: Jax Carbajal MD Measurements Intervals [place] Rate: 94 P: -10 CT: 219 QRS: -72 QRSD: 150 T: 93 QT: 395 QTc: 447 Interpretive Statements [employer]LECT[employer]ER Electronically Signed On 02-22-2017 8:24:48 EDT by Jax Carbajal MD
[2017-02-22] MEDS: cloNIDine HCl 0.1 MG TABLET PO SCH ×2 (10:08→20:59)
[2017-02-22] MEDS: *HR* Amiodarone 200 MG TABLET PO SCH (10:08)
[2017-02-22] MEDS: Aspirin Enteric Coated 81 MG Tablet PO SCH (10:08)
[2017-02-22] MEDS: Diltiazem CD (24hr) 180 MG CAPSULE PO SCH (10:08)
[2017-02-22] MEDS: predniSONE 20 MG TABLET PO SCH (10:08)
--- NOTE | 2017-02-22 15:58 | Internal Med Progress Note ---
Date of Encounter: 02/22/17 Time of Encounter: 15:54 - Assessment and plan (1) Pneumonia Current Visit: Yes Status: Acute Assessment and plan: possible PNA/Urosepsis Presently on Levofloxacin 750 mg/day : Day 2 Improving WBC Clinically more alert though she is still persistently coughing. will continue present abx for now Qualifiers: Pneumonia type: due to unspecified organism Laterality: right Lung location: lower lobe of lung Qualified Code(s): J18.1 - Lobar pneumonia, unspecified organism (2) A-fib Current Visit: No Status: Chronic Assessment and plan: rate is well controlled. Cardizem SR 180 mg. A/C on hold due to supratherapeutic INR No obvious source of bleeding received Vit K will get labs tomorrow Qualifiers: Atrial fibrillation type: chronic Qualified Code(s): I48.2 - Chronic atrial fibrillation (3) Subtherapeutic international normalized ratio (INR) Current Visit: No Status: Acute Assessment and plan: will hold coumadin repeat labs in the morning. (4) CAD (coronary artery disease) Current Visit: No Status: Chronic Assessment and plan: stable Qualifiers: Coronary Disease-Associated Artery/Lesion type: [place] artery [place] vs. transplanted heart: [place] heart Associated angina: with unspecified angina Qualified Code(s): I25.119 - Atherosclerotic heart disease of [place] coronary artery with unspecified angina pectoris (5) Pacemaker Current Visit: No Status: Acute Assessment and plan: no recent firing noted. Medical Decision making : patient has moderate to severe risk of worsening pneumonia in spite of being on appropriate abx - Subjective Interval history: seen and examined. patient still has active cough and she is short of breath. denies chest pain or dizziness. - Constitutional Vitals: Temp Pulse Resp BP Pulse Ox 97.5 F L 74 22 132/56 91 L 02/22/17 11:05 02/22/17 11:05 02/22/17 11:05 02/22/17 11:05 02/22/17 11:05 General appearance: Present: A&O X 2, pleasant, no acute distress, answers questions appropriately - Head Head exam: Present: atraumatic, normocephalic - Eye Eye exam: Present: PERRL, conjuntiva pink, sclera anicteric Pupils: Present: PERRL - Neck Neck exam general surgery: Present: supple, trachea midline. Absent: lymphadenopathy - Respiratory Respiratory exam: Present: CTAB. Absent: accessory muscle use, rales, rhonchi, wheezes - Cardiovascular Cardiovascular exam: Present: RRR, +S1, +S2. Absent: diastolic murmur, gallop, rubs, systolic murmur - GI/Abdominal GI/Abdominal exam: Present: normal bowel sounds, soft, no peritoneal signs. Absent: distended, tenderness - Extremities Exam Extremities exam: Present: warm, radial pulses palpable and symetrical. Absent : calf tenderness, cyanotic, pedal edema - Neurological Exam Neurological exam: Present: CN II-XII intact, oriented X3, no focal deficits. Absent: pronater drift, facial droop, speech deficit - Skin Skin exam: Present: dry, intact Internal Medicine: Result - Labs CBC & Chem 7: 02/22/17 06:19 02/22/17 06:19 Labs: Short CBC 02/22/17 Range/Units 06:19 WBC 8.9 (4.3-11.1) K/mcL Hgb 12.7 (11.5-15.4) g/dL Hct 39.7 (35.3-44.9) % Plt Count 283 (140-400) K/mcL Neutrophils # 7.7 (1.6-8.9) K/mcL BMP 02/22/17 06:19 Sodium 138 Potassium 4.3 Chloride 102 Carbon Dioxide 26 BUN 34 H Creatinine 0.87 Glucose 173 H Calcium 9.5 Liver Function 02/22/17 Range/Units 06:19 Total Bilirubin 0.5 (0.2-1.2) mg/dL AST 12 (5-34) Units/L ALT 11 (0-55) Units/L Alkaline Phosphatase 76 (38-126) Units/L Albumin 2.6 L (3.5-5.0) g/dL Urine 02/22/17 Range/Units 00:00 Urine Color Dark Yellow (Yellow) Urine Clarity Cloudy A (Clear) Urine pH 6.0 (5.0-8.0) pH Units Ur Specific [place] 1.020 (1.010-1.025) Urine Protein Trace (Neg-Trace) mg/dL Urine Glucose (UA) Normal (Normal) mg/dL - ABG Interpretation ABG results: PT/INR, D-dimer PT 66.9 Seconds (9.4-12.1) H* 02/22/17 06:19 - VTE Reasons for not Prescribing Prophylaxis: Not indicated-Anticoagulated or INR therapeutic Consult Discharge Plan - Plan Referrals: Cesilia Ahn CNP [Advanced Practice Nurse] - 03/07/17 2:00 pm
[2017-02-22] MEDS ORDERED: *HR* Heparin 5,000 UNIT/ML VIAL SQ SCH (17:15)
[2017-02-23] MEDS: *HR* Heparin 5,000 UNIT/ML VIAL SQ SCH ×2 (05:48→17:24)
[2017-02-23 06:09] LABS: Basophils % 0.1 %; Eosinophils % 0.1 %; Hematocrit 39.9 % (35.3-44.9); Hemoglobin 12.2 g/dL (11.5-15.4); Immature Granulocytes % 0.7 % (0-4); Lymphocytes # 0.7 K/mcL (0.6-4.6); Lymphocytes % 8.4 %; Mean Corpuscular HGB Conc 30.6 g/dL (31.6-35.5); Mean Corpuscular Volume 88.3 fL (83.0-100.0); Mean Platelet Volume 9.9 fL (9.4-12.4); Monocytes # 0.8 K/mcL (0.0-1.3); Monocytes % 9.8 %; Neutrophils # 6.8 K/mcL (1.6-8.9); Platelet Count 290 K/mcL (140-400); Red Blood Count 4.52 M/mcL (3.82-4.97); Red Cell Distribution Width 14.5 % (11.5-14.5); Segmented Neutrophils % 80.9 %
[2017-02-23 06:17] LABS: INR 1.4; Prothrombin Time 15.5 Seconds (9.4-12.1)
[2017-02-23 06:19] LABS: BUN/Creatinine Ratio 54 (6-26); Blood Urea Nitrogen 43 mg/dL (7-20); Calcium 9.5 mg/dL (8.6-10.8); Carbon Dioxide 26 mEq/L (19-29); Chloride 105 mEq/L (98-109); Glucose 143 mg/dL (70-99); Osmolality,Calculated 303 (280-300); Potassium 4.4 mEq/L (3.5-4.5); Sodium 140 mEq/L (136-145); eGFR For African Americans > 60 (> 60); eGFR For Non-African Americans > 60 (> 60)
[2017-02-23 06:39] LABS: Platelet Estimate Normal (Normal)
[2017-02-23] MEDS: *HR* Amiodarone 200 MG TABLET PO SCH (08:52)
[2017-02-23] MEDS: Aspirin Enteric Coated 81 MG Tablet PO SCH (08:52)
[2017-02-23] MEDS: predniSONE 20 MG TABLET PO SCH (08:52)
[2017-02-23] MEDS: cloNIDine HCl 0.1 MG TABLET PO SCH ×2 (08:52→21:49)
[2017-02-23] MEDS: Diltiazem CD (24hr) 180 MG CAPSULE PO SCH (08:52)
--- NOTE | 2017-02-23 09:09 | Internal Med Progress Note ---
Date of Encounter: 02/23/17 Time of Encounter: 09:07 - Assessment and plan (1) Pneumonia Current Visit: Yes Status: Acute Assessment and plan: possible PNA/Urosepsis Presently on Levofloxacin 750 mg/day : Day 2 Improving WBC Clinically more alert though she is still persistently coughing. will continue present abx for now 02/23/2017. Possible urosepsis than pneumonia. Improving WBC. Levofloxacin 750 mg intravenous: Day 3 Patient is clinically more alert and oriented. Qualifiers: Pneumonia type: due to unspecified organism Laterality: right Lung location: lower lobe of lung Qualified Code(s): J18.1 - Lobar pneumonia, unspecified organism (2) A-fib Current Visit: No Status: Chronic Assessment and plan: rate is well controlled. Cardizem SR 180 mg. A/C on hold due to supratherapeutic INR No obvious source of bleeding received Vit K will get labs tomorrow 02/23/2017. Noted that patient's INR is subtherapeutic 1.4 We will resume Coumadin. Patient already received 3 days of antibiotics. Qualifiers: Atrial fibrillation type: chronic Qualified Code(s): I48.2 - Chronic atrial fibrillation (3) Subtherapeutic international normalized ratio (INR) Current Visit: No Status: Acute Assessment and plan: will hold coumadin repeat labs in the morning. 02/23/2017. INR is subtherapeutic now: 1.4 We will resume the home medication/home dose of Coumadin. (4) CAD (coronary artery disease) Current Visit: No Status: Chronic Assessment and plan: stable Qualifiers: Coronary Disease-Associated Artery/Lesion type: [place] artery [place] vs. transplanted heart: [place] heart Associated angina: with unspecified angina Qualified Code(s): I25.119 - Atherosclerotic heart disease of [place] coronary artery with unspecified angina pectoris (5) Pacemaker Current Visit: No Status: Acute Assessment and plan: no recent firing noted. Medical Decision making : patient has moderate to severe risk of worsening pneumonia in spite of being on appropriate abx - Subjective Interval history: seen and examined. patient still has active cough and she is short of breath. denies chest pain or dizziness. 02/23/2017 Patient seen and examined. Chart reviewed. Compared to yesterday today patient is much more alert and oriented. She denies any dysuria, shortness of breath, chest pain or dizziness. - Constitutional Vitals: Temp Pulse Resp BP Pulse Ox 97.9 F 60 16 155/68 100 02/23/17 07:20 02/23/17 07:20 02/23/17 07:20 02/23/17 07:20 02/23/17 07:20 General appearance: Present: A&O X 2, pleasant, no acute distress, answers questions appropriately - Head Head exam: Present: atraumatic, normocephalic - Eye Eye exam: Present: PERRL, conjuntiva pink, sclera anicteric Pupils: Present: PERRL - Neck Neck exam general surgery: Present: supple, trachea midline. Absent: lymphadenopathy - Respiratory Respiratory exam: Present: CTAB. Absent: accessory muscle use, rales, rhonchi, wheezes - Cardiovascular Cardiovascular exam: Present: RRR, +S1, +S2. Absent: diastolic murmur, gallop, rubs, systolic murmur - GI/Abdominal GI/Abdominal exam: Present: normal bowel sounds, soft, no peritoneal signs. Absent: distended, tenderness - Extremities Exam Extremities exam: Present: warm, radial pulses palpable and symetrical. Absent : calf tenderness, cyanotic, pedal edema - Neurological Exam Neurological exam: Present: CN II-XII intact, oriented X3, no focal deficits. Absent: pronater drift, facial droop, speech deficit - Skin Skin exam: Present: dry, intact Internal Medicine: Result - Labs CBC & Chem 7: 02/23/17 05:49 02/23/17 05:49 Labs: Short CBC 02/23/17 Range/Units 05:49 WBC 8.4 (4.3-11.1) K/mcL Hgb 12.2 (11.5-15.4) g/dL Hct 39.9 (35.3-44.9) % Plt Count 290 (140-400) K/mcL Neutrophils # 6.8 (1.6-8.9) K/mcL BMP 02/23/17 05:49 Sodium 140 Potassium 4.4 Chloride 105 Carbon Dioxide 26 BUN 43 H Creatinine 0.79 Glucose 143 H Calcium 9.5 - ABG Interpretation ABG results: PT/INR, D-dimer PT 15.5 Seconds (9.4-12.1) H D 02/23/17 05:49 - VTE Reasons for not Prescribing Prophylaxis: Not indicated-Anticoagulated or INR therapeutic Consult Discharge Plan - Plan Referrals: Cesilia Ahn CNP [Advanced Practice Nurse] - 03/07/17 2:00 pm
[2017-02-23] MEDS: *HR* Warfarin 2.5 MG TABLET PO SCH (17:24)
[2017-02-23] MEDS ORDERED: Levofloxacin 750 MG/150 ML 750 MG/150 ML BAG IVPB ONE (22:00)
[2017-02-24] MEDS: *HR* Heparin 5,000 UNIT/ML VIAL SQ SCH ×2 (05:22→18:00)
[2017-02-24 06:20] LABS: Basophils % 0.3 %; Eosinophils % 0.5 %; Hematocrit 38.9 % (35.3-44.9); Immature Granulocytes % 1.1 % (0-4); Lymphocytes % 12.7 %; Mean Corpuscular HGB Conc 30.8 g/dL (31.6-35.5); Mean Corpuscular Hemoglobin 27.3 pg (28.0-33.3); Mean Corpuscular Volume 88.4 fL (83.0-100.0); Mean Platelet Volume 9.5 fL (9.4-12.4); Monocytes # 0.8 K/mcL (0.0-1.3); Platelet Count 335 K/mcL (140-400); Red Cell Distribution Width 14.3 % (11.5-14.5); Segmented Neutrophils % 75.4 %
[2017-02-24 06:32] LABS: BUN/Creatinine Ratio 48 (6-26); Blood Urea Nitrogen 31 mg/dL (7-20); Carbon Dioxide 27 mEq/L (19-29); Chloride 104 mEq/L (98-109); Glucose 108 mg/dL (70-99); Osmolality,Calculated 297 (280-300); Potassium 4.1 mEq/L (3.5-4.5); Sodium 140 mEq/L (136-145); eGFR For African Americans > 60 (> 60); eGFR For Non-African Americans > 60 (> 60)
[2017-02-24 06:42] LABS: Platelet Estimate Normal (Normal)
[2017-02-24] MEDS: Diltiazem CD (24hr) 180 MG CAPSULE PO SCH (08:34)
[2017-02-24] MEDS: cloNIDine HCl 0.1 MG TABLET PO SCH ×2 (08:34→20:05)
[2017-02-24] MEDS: *HR* Amiodarone 200 MG TABLET PO SCH (08:35)
[2017-02-24] MEDS: predniSONE 20 MG TABLET PO SCH (08:35)
[2017-02-24] MEDS: Aspirin Enteric Coated 81 MG Tablet PO SCH (08:35)
--- NOTE | 2017-02-24 15:46 | Internal Med Progress Note ---
Date of Encounter: 02/23/17 Time of Encounter: 15:43 - Assessment and plan (1) Pneumonia Current Visit: Yes Status: Acute Assessment and plan: possible PNA/Urosepsis Presently on Levofloxacin 750 mg/day : Day 2 Improving WBC Clinically more alert though she is still persistently coughing. will continue present abx for now 02/23/2017. Possible urosepsis than pneumonia. Improving WBC. Levofloxacin 750 mg intravenous: Day 3 Patient is clinically more alert and oriented. 02/23/2017. Likely urosepsis. Levofloxacin: Day 4 Will discontinue antibiotics tomorrow and possible home tomorrow Qualifiers: Pneumonia type: due to unspecified organism Laterality: right Lung location: lower lobe of lung Qualified Code(s): J18.1 - Lobar pneumonia, unspecified organism (2) A-fib Current Visit: No Status: Chronic Assessment and plan: rate is well controlled. Cardizem SR 180 mg. A/C on hold due to supratherapeutic INR No obvious source of bleeding received Vit K will get labs tomorrow 02/23/2017. Noted that patient's INR is subtherapeutic 1.4 We will resume Coumadin. Patient already received 3 days of antibiotics. Qualifiers: Atrial fibrillation type: chronic Qualified Code(s): I48.2 - Chronic atrial fibrillation (3) Subtherapeutic international normalized ratio (INR) Current Visit: No Status: Acute Assessment and plan: will hold coumadin repeat labs in the morning. 02/23/2017. INR is subtherapeutic now: 1.4 We will resume the home medication/home dose of Coumadin. (4) CAD (coronary artery disease) Current Visit: No Status: Chronic Assessment and plan: stable Qualifiers: Coronary Disease-Associated Artery/Lesion type: [place] artery [place] vs. transplanted heart: [place] heart Associated angina: with unspecified angina Qualified Code(s): I25.119 - Atherosclerotic heart disease of [place] coronary artery with unspecified angina pectoris (5) Pacemaker Current Visit: No Status: Acute Assessment and plan: no recent firing noted. Medical Decision making : patient has moderate to severe risk of worsening pneumonia in spite of being on appropriate abx - Subjective Interval history: seen and examined. patient still has active cough and she is short of breath. denies chest pain or dizziness. 02/23/2017 Patient seen and examined. Chart reviewed. Compared to yesterday today patient is much more alert and oriented. She denies any dysuria, shortness of breath, chest pain or dizziness. 02/24/2017. Patient seen and examined. Chart reviewed. Patient is keen to go home. Patient did not walk a few steps since she is hospitalized. We will make patient walk and see how she does in terms of her oxygen saturation. If she has low oxygen saturation then we will qualify her for home oxygen therapy. - Constitutional Vitals: Temp Pulse Resp BP Pulse Ox 97.8 F 70 16 139/59 95 02/24/17 12:29 02/24/17 12:29 02/24/17 12:02/24/17 12:02/24/17 13:53 General appearance: Present: A&O X 2, pleasant, no acute distress, answers questions appropriately - Head Head exam: Present: atraumatic, normocephalic - Eye Eye exam: Present: PERRL, conjuntiva pink, sclera anicteric Pupils: Present: PERRL - Neck Neck exam general surgery: Present: supple, trachea midline. Absent: lymphadenopathy - Respiratory Respiratory exam: Present: CTAB. Absent: accessory muscle use, rales, rhonchi, wheezes - Cardiovascular Cardiovascular exam: Present: RRR, +S1, +S2. Absent: diastolic murmur, gallop, rubs, systolic murmur - GI/Abdominal GI/Abdominal exam: Present: normal bowel sounds, soft, no peritoneal signs. Absent: distended, tenderness - Extremities Exam Extremities exam: Present: warm, radial pulses palpable and symetrical. Absent : calf tenderness, cyanotic, pedal edema - Neurological Exam Neurological exam: Present: CN II-XII intact, oriented X3, no focal deficits. Absent: pronater drift, facial droop, speech deficit - Skin Skin exam: Present: dry, intact Internal Medicine: Result - Labs CBC & Chem 7: 02/24/17 05:16 02/24/17 05:16 Labs: Short CBC 02/24/17 Range/Units 05:16 WBC 8.0 (4.3-11.1) K/mcL Hgb 12.0 (11.5-15.4) g/dL Hct 38.9 (35.3-44.9) % Plt Count 335 (140-400) K/mcL Neutrophils # 6.0 (1.6-8.9) K/mcL BMP 02/24/17 05:16 Sodium 140 Potassium 4.1 Chloride 104 Carbon Dioxide 27 BUN 31 H D Creatinine 0.65 Glucose 108 H Calcium 9.0 - ABG Interpretation ABG results: PT/INR, D-dimer PT 15.5 Seconds (9.4-12.1) H D 02/23/17 05:49 - VTE Reasons for not Prescribing Prophylaxis: Not indicated-Anticoagulated or INR therapeutic Consult Discharge Plan - Plan Referrals: Cesilia Ahn, ROWENA [Advanced Practice Nurse] - 03/07/17 2:00 pm
[2017-02-24] MEDS: *HR* Warfarin 2.5 MG TABLET PO SCH (18:00)
[2017-02-24] MEDS: Lisinopril 20 MG TABLET PO SCH (18:00)
[2017-02-25] MEDS: *HR* Heparin 5,000 UNIT/ML VIAL SQ SCH (05:31)
[2017-02-25 06:42] LABS: Basophils % 0.6 %; Eosinophils # 0.1 K/mcL (0.0-0.6); Eosinophils % 1.9 %; Hematocrit 38.8 % (35.3-44.9); Hemoglobin 12.6 g/dL (11.5-15.4); Immature Granulocytes % 3.4 % (0-4); Lymphocytes # 1.2 K/mcL (0.6-4.6); Mean Corpuscular HGB Conc 32.5 g/dL (31.6-35.5); Mean Corpuscular Hemoglobin 28.3 pg (28.0-33.3); Mean Platelet Volume 9.8 fL (9.4-12.4); Monocytes # 0.6 K/mcL (0.0-1.3); Monocytes % 9.9 %; Platelet Count 379 K/mcL (140-400); Red Blood Count 4.46 M/mcL (3.82-4.97); Red Cell Distribution Width 14.3 % (11.5-14.5); Segmented Neutrophils % 66.2 %
[2017-02-25 07:16] LABS: Neutrophils # 4.2 K/mcL (1.6-8.9)
[2017-02-25 07:49] LABS: Large Platelets Present (Not Present); Platelet Estimate Normal (Normal); Reactive Lymphocytes Present (Not Present)
[2017-02-25] MEDS: predniSONE 20 MG TABLET PO SCH (08:18)
[2017-02-25] MEDS: Lisinopril 20 MG TABLET PO SCH (08:18)
[2017-02-25] MEDS: Diltiazem CD (24hr) 180 MG CAPSULE PO SCH (08:18)
[2017-02-25] MEDS: cloNIDine HCl 0.1 MG TABLET PO SCH (08:24)
[2017-02-25] MEDS: *HR* Amiodarone 200 MG TABLET PO SCH (08:24)
[2017-02-25] MEDS: Aspirin Enteric Coated 81 MG Tablet PO SCH (08:24)
--- NOTE | 2017-02-25 09:54 | Discharge Summary ---
Date of Encounter: 02/23/17 Time of Encounter: 09:51 - Discharge Diagnosis (1) Pneumonia Priority: Primary Status: Acute Qualifiers: Pneumonia type: due to unspecified organism Laterality: right Lung location: lower lobe of lung Qualified Code(s): J18.1 - Lobar pneumonia, unspecified organism (2) A-fib Priority: Secondary Status: Chronic Qualifiers: Atrial fibrillation type: chronic Qualified Code(s): I48.2 - Chronic atrial fibrillation (3) Subtherapeutic international normalized ratio (INR) Priority: Primary Status: Acute (4) CAD (coronary artery disease) Priority: Secondary Status: Chronic Qualifiers: Coronary Disease-Associated Artery/Lesion type: [place] artery [place] vs. transplanted heart: [place] heart Associated angina: with unspecified angina Qualified Code(s): I25.119 - Atherosclerotic heart disease of [place] coronary artery with unspecified angina pectoris (5) Pacemaker Priority: Secondary Status: Acute - Discharge Medications Home Medications: Amiodarone HCl [Pacerone] 200 mg PO DAILY 01/14/17 [History] Pantoprazole Sodium [Protonix] 40 mg PO DAILY 01/14/17 [History] Warfarin [Coumadin] 2.5 mg PO QPM 01/14/17 [History] Aspirin [Lo-Dose Aspirin EC] 81 mg PO DAILY 01/30/17 [History] CloNIDine HCl [Clonidine HCl] 0.1 mg PO BID 01/30/17 [History] Diltiazem CD (24hr) [Cardizem CD] 180 mg PO DAILY #30 cap.er.24h 02/05/17 [Rx] Lisinopril [Zestril] 40 mg PO DAILY 02/21/17 [History] Allergies/Adverse Reactions: Allergies No Known Allergies Allergy (Verified 10/18/16 19:54) Date of admission: 02/21/17 22:58 Primary care physician: PCP NO Discharging clinician: Marty Rodriguez - Patient Status Disposition: Home, Self-Care Condition: Undetermined Functional capacity at discharge: uses cane/walker Overall status at discharge: patient is progressing back to baseline - Discharge Instructions Follow Up With: Cesilia Ahn, ROWENA [Advanced Practice Nurse] - 03/07/17 2:00 pm - Diet and Activity Activity: increase activity as tolerated Diet: low salt diet Interval History: Ms. Saucedo is a 86 year old female with medical history significant for paroxysmal atrial fibrillation, CAD (w/ prior [place]), seizures, hyperension, and hyperlipidemia who has had a recent dual-chamber pacemaker placed on 02/04/17 presented to [facility] due to increased shortness of breath. She states that she has been having increased shortness of breath for about 3 weeks, during this time frame she has been feeling like she has "had a cold." She reports that she developed a cough in the past week, that has been productive of yellow sputum. Her shortness of breath finally got so bad, that her family brought her in to the hospital. Hospital course: Patient was hospitalized. Patient was started on IV levofloxacin. Patient tolerated antibiotics very well. Patient's symptoms were resolved. This was more of a urinary tract infection. The likely source of the sepsis is from urine. Patient completed a course of antibiotics. Patient was still having shortness of breath. Patient was made a walk in the room with the help of oxygen tank. Patient's saturation dropped below 88% at that time. Plan: -Patient will go home today. -Patient will follow-up with the PCP as outpatient treatment. Patient claims that she is feeling better and she does not want anymore further investigations. Patient stays with her family and she will leave with family - Time Spent with Patient Total time spent providing and/or coordinating discharge services: - Constitutional Vitals: Temp Pulse Resp BP Pulse Ox 98.4 F 69 16 158/58 95 02/25/17 07:06 02/25/17 07:06 02/25/17 07:06 02/25/17 07:06 02/25/17 07:06 General appearance: Present: A&O X 2, pleasant, no acute distress, answers questions appropriately - Head Head exam: Present: atraumatic, normocephalic - Eye Eye exam: Present: PERRL, conjuntiva pink, sclera anicteric Pupils: Present: PERRL - Neck Neck exam general surgery: Present: supple, trachea midline. Absent: lymphadenopathy - Respiratory Respiratory exam: Present: CTAB. Absent: accessory muscle use, rales, rhonchi, wheezes - Cardiovascular Cardiovascular exam: Present: RRR, +S1, +S2. Absent: diastolic murmur, gallop, rubs, systolic murmur - GI/Abdominal GI/Abdominal exam: Present: normal bowel sounds, soft, no peritoneal signs. Absent: distended, tenderness - Extremities Exam Extremities exam: Present: warm, radial pulses palpable and symetrical. Absent : calf tenderness, cyanotic, pedal edema - Neurological Exam Neurological exam: Present: CN II-XII intact, oriented X3, no focal deficits. Absent: pronater drift, facial droop, speech deficit - Skin Skin exam: Present: dry, intact - VTE Reasons for not Prescribing Prophylaxis: Not indicated-Anticoagulated or INR therapeutic
[2017-02-25 10:47] VITALS: BP 159/57
== END 2017-02-25 18:30 | disposition home or self-care (01) | DRG 871 ==
LOC: 2NENU 15:46 → EMEROO 15:46 → 2NENU 20:25 → SUATTDRO 22:58
PROVIDERS: ADMIT Nurse Practitioner Family; ATTEND Internal Medicine

== ENCOUNTER 2018-03-21 19:00 | Inpatient (IN) ==
--- NOTE | 2018-03-21 21:32 | Internal Med History&Physical ---
Date of Encounter: 03/21/18 Time of Encounter: 21:25 Assessment and Plan (1) Anemia Current visit: No Status: Acute Chronic check CBC in a.m. Qualifiers: Anemia type: iron deficiency Iron deficiency anemia type: unspecified iron deficiency Qualified Code(s): D50.9 - Iron deficiency anemia, unspecified (2) Community acquired pneumonia Current visit: No Status: Acute Patient transferred due to community-acquired pneumonia right upper lobe Start patient on Rocephin and Zithromax IV Qualifiers: Laterality: right Lung location: upper lobe of lung Qualified Code(s): J18.1 - Lobar pneumonia, unspecified organism (3) Pacemaker Current visit: No Status: Chronic No issue at present (4) Sepsis Current visit: No Status: Acute Has a white count of 27,000 fever and lactic acidosis was sent for blood culture Qualifiers: Sepsis type: sepsis due to unspecified organism Qualified Code(s): A41.9 - Sepsis, unspecified organism (5) CAD (coronary artery disease) Current visit: No Status: Chronic History of [place] 2016 no intervention was done Qualifiers: Coronary Disease-Associated Artery/Lesion type: [place] artery [place] vs. transplanted heart: [place] heart Associated angina: with unspecified angina Qualified Code(s): I25.119 - Atherosclerotic heart disease of [place] coronary artery with unspecified angina pectoris (6) HTN (hypertension) Current visit: No Status: Chronic Chronic and well controlled Qualifiers: Hypertension type: essential hypertension Qualified Code(s): I10 - Essential (primary) hypertension (7) Atrial fibrillation Current visit: Yes Status: Chronic History of atrial fibrillation but mostly in sinus rhythm Qualifiers: Atrial fibrillation type: unspecified Qualified Code(s): I48.91 - Unspecified atrial fibrillation Internal Medicine - H&P: HPI Chief complaint: sob, cough Admitted From: Intrahospital Transfer Plans for Post Hospital Care: Home History of present illness: Ms. Saucedo is a 87 year old female Patient with history of hypertension, CHF, atrial fibrillation, CAD /[place] 206 but no intervention done patient also history of pacemaker for syncope and bradycardia , anemia and GERD. Patient was transferred from [place] emergency room after evaluation she presented with generalized weakness, fever and shortness of breath low grade fever on arrival she was hypoxic chest x- rays shows right upper lobe pneumonia white count 27,000 lactic acid of 2.9 also temperature 101 on arrival here patient is very hard of hearing unable to obtain much information from her because of hard of hearing but appears comfortable in no apparent distress Past Med Surg Social Fam HX - Past Medical History Medical history: coronary artery disease, hyperlipidemia, hypertension, myocardial infarction Psychiatric history: no psych history - Past Surgical History Surgical History: orthopedic, other - Social History Smoking Status: Former smoker Smokeless Tobacco Status: No Alcohol use: none Drug use: none - Family History Son Adopted: No Living Status: Hx Family Cancer: Yes (not sure of type) Internal Medicine - H&P: Meds Amiodarone HCl [Pacerone] 200 mg PO DAILY 01/14/17 [History] Pantoprazole Sodium [Protonix] 40 mg PO DAILY 01/14/17 [History] Diltiazem CD (24hr) [Cardizem CD] 180 mg PO DAILY #30 cap.er.24h 02/05/17 [Rx] Lisinopril [Zestril] 40 mg PO DAILY 02/21/17 [History] Aspirin [Lo-Dose Aspirin EC] 81 mg PO Q48H #0 11/04/17 [Rx] Bumetanide 0.5 mg PO DAILY #30 tablet 11/04/17 [Rx] Doxazosin [Cardura] 2 mg PO HS #15 tablet 11/04/17 [Rx] Isosorbide MONOnitrate (24 HR) [Imdur] 30 mg PO DAILY #30 tab.er.24h 11/04/17 [ Rx] Metoprolol XL (24 HR) Succ [Toprol Xl] 25 mg PO DAILY #30 tab.er.24h 11/04/17 [ Rx] Jantoven 2.5 mg PO DAILY 03/21/18 [History] 3 Allergy/AdvReac Type Severity Reaction Status Date / Time No Known Allergies Allergy Verified 11/01/17 14:33 All Systems PM: A 10-system review of systems was performed and is negative for pertinent findings except as documented above in the HPI. - Constitutional Vitals: Temp Pulse Resp BP Pulse Ox 98.1 F 70 16 125/65 97 03/21/18 21:00 03/21/18 21:00 03/21/18 21:00 03/21/18 21:00 03/21/18 21:00 General appearance: Present: mild distress - Eye Eye exam: Present: PERRL, conjuntiva pink, sclera anicteric Pupils: Present: PERRL - Neck Neck exam general surgery: Present: supple, trachea midline. Absent: lymphadenopathy - Respiratory Respiratory exam: Present: rhonchi - Cardiovascular Cardiovascular exam: Present: RRR, +S1, +S2. Absent: diastolic murmur, gallop, rubs, systolic murmur - GI/Abdominal GI/Abdominal exam: Present: normal bowel sounds, soft, no peritoneal signs. Absent: distended, tenderness - Extremities Exam Extremities exam: Present: warm, radial pulses palpable and symmetrical. Absent : calf tenderness, cyanotic, pedal edema
[2018-03-21] MEDS ORDERED: traMADol 50 MG TABLET PO PRN (21:37)
[2018-03-21] MEDS ORDERED: Acetaminophen 325 MG TABLET PO PRN (21:37)
[2018-03-21] MEDS ORDERED: Naloxone 0.4 MG/ML INJ IVP PRN (21:37)
[2018-03-21] MEDS ORDERED: 0.9 % Sodium Chloride 1,000 ML IVC SCH (21:45)
[2018-03-21] MEDS: Aspirin Enteric Coated 81 MG Tablet PO SCH (22:39)
[2018-03-21] MEDS: Azithromycin 500 MG in D5% in Water 250 ML IVPB SCH (22:39)
[2018-03-21] MEDS ORDERED: Ipratropium/Albuterol Neb 3 ML IH PRN (23:08)
[2018-03-21] MEDS ORDERED: Furosemide 40 MG/4 ML VIAL IVP ONE (23:09)
[2018-03-21] MEDS: Ipratropium/Albuterol Neb 3 ML IH SCH (23:30)
[2018-03-22 00:57] LABS: ABG Base Excess 1 mEq/L (-2 to 3); ABG HCO3 26 mEq/L (21-27); ABG Oxygen Saturation 95 % (95-98); ABG PCO2 40 mmHg (35-45); ABG PH 7.42 pH Units (7.32-7.45); ABG PO2 76 mmHg (85-104); ABG TCO2 27 mEq/L (20-26)
[2018-03-22 03:55] LABS: Hematocrit 34.4 % (35.3-44.9); Hemoglobin 11.1 g/dL (11.5-15.4); Mean Corpuscular HGB Conc 32.3 g/dL (31.6-35.5); Mean Platelet Volume 10.6 fL (9.4-12.4); Platelet Count 168 K/mcL (140-400)
[2018-03-22 04:05] LABS: Alanine Aminotransferase 23 Units/L (7-52); Albumin 3.2 g/dL (3.5-5.7); Albumin/Globulin Ratio 1.4 (1.1-2.2); Alkaline Phosphatase 52 Units/L (34-104); Aspartate Amino Transferase 23 Units/L (13-39); BUN/Creatinine Ratio 32 (6-26); Bilirubin,Total 0.6 mg/dL (0.3-1.0); Blood Urea Nitrogen 31 mg/dL (8-23); Calcium 8.6 mg/dL (8.6-10.3); Carbon Dioxide 26 mEq/L (23-29); Chloride 104 mEq/L (98-107); Chol/HDL Ratio 2.9 (0-4.9); Cholesterol 105 mg/dL (< 200); Globulin 2.3 g/dL (2.4-3.5); Glucose 91 mg/dL (70-105); HDL Cholesterol 36 mg/dL (40-59); LDL Cholesterol,Calculated 55 mg/dL (0-99); Magnesium 1.8 mg/dL (1.6-2.6); Osmolality,Calculated 294 (280-300); Potassium 3.5 mEq/L (3.5-5.1); Sodium 139 mEq/L (136-145); Total Protein 5.5 g/dL (6.4-8.9); Triglycerides 72 mg/dL (< 150); eGFR For African Americans > 60 (> 60); eGFR For Non-African Americans 54 (> 60)
[2018-03-22] MEDS: Ipratropium/Albuterol Neb 3 ML IH SCH ×5 (04:57→22:42)
[2018-03-22] MEDS ORDERED: Albuterol 2.5 MG/3 ML NEBULIZER IH PRN (09:07)
--- NOTE | 2018-03-22 09:10 | Internal Med Progress Note ---
Date of Encounter: 03/22/18 Time of Encounter: 09:08 - Assessment and plan (1) Community acquired pneumonia Current Visit: Yes Status: Acute Assessment and plan: RUL. Improving. No SOB. Continue supplemental O2 PRN; wean as tolerated ( uses PRN at home). WBC trending down. Continue IV rocephin and azithromycin. Qualifiers: Laterality: right Lung location: upper lobe of lung Qualified Code(s): J18.1 - Lobar pneumonia, unspecified organism (2) Sepsis Current Visit: Yes Status: Acute Assessment and plan: Improved. WBC trending down. Vitals improved. Repeat CBC in AM. Monitor vitals closely. Qualifiers: Sepsis type: sepsis due to unspecified organism Qualified Code(s): A41.9 - Sepsis, unspecified organism (3) Atrial fibrillation Current Visit: Yes Status: Chronic Assessment and plan: NSR. Continue home medications. Continue to monitor. Qualifiers: Atrial fibrillation type: unspecified Qualified Code(s): I48.91 - Unspecified atrial fibrillation (4) Anemia Current Visit: Yes Status: Chronic Assessment and plan: Chronic issues. Hgb stable. Continue to monitor. Recheck CBC in AM. Qualifiers: Anemia type: iron deficiency Iron deficiency anemia type: unspecified iron deficiency Qualified Code(s): D50.9 - Iron deficiency anemia, unspecified (5) CAD (coronary artery disease) Current Visit: Yes Status: Chronic Assessment and plan: Continue home medications. Qualifiers: Coronary Disease-Associated Artery/Lesion type: [place] artery [place] vs. transplanted heart: [place] heart Associated angina: with unspecified angina Qualified Code(s): I25.119 - Atherosclerotic heart disease of [place] coronary artery with unspecified angina pectoris (6) HTN (hypertension) Current Visit: Yes Status: Chronic Assessment and plan: Continue home medications. Qualifiers: Hypertension type: essential hypertension Qualified Code(s): I10 - Essential (primary) hypertension (7) Pacemaker Current Visit: Yes Status: Chronic Assessment and plan: No issues at this time. (8) DVT prophylaxis Current Visit: Yes Status: Acute Assessment and plan: On coumadin. Dosing by pharmacy. - Time Spent With Patient Total time spent is greater than 50% in coordination of care (as documented) at patient's floor/unit and/or counseling patient: less than 15 minutes - Subjective Interval history: Patient had no acute events overnight. She states that she is feeling better today. She denies any chest pain, SOB, fever, chills, nausea, or vomiting. She has eaten some of her breakfast this AM. She states that she wears supplemental O2 only when needed at home. She is in good spirits this AM. She has no complaints. - Constitutional Vitals: Temp Pulse Resp BP Pulse Ox 99.1 F 84 18 166/69 94 03/22/18 06:52 03/22/18 06:52 03/22/18 07:40 03/22/18 06:52 03/22/18 07:40 General appearance: Present: cooperative, A&O X 3, pleasant, no acute distress, answers questions appropriately - ENT Additional comments: Hard of hearing - Respiratory Respiratory exam: Present: CTAB. Absent: accessory muscle use, rales, rhonchi, wheezes Additional comments: Mildly labored WOB - Cardiovascular Cardiovascular exam: Present: RRR, +S1, +S2. Absent: diastolic murmur, gallop, rubs, systolic murmur Additional comments: No BLE edema - GI/Abdominal GI/Abdominal exam: Present: normal bowel sounds, soft. Absent: distended, hepatomegaly, mass, splenomegaly, tenderness - Psychiatric Psychiatric exam: Present: normal affect, normal mood. Absent: agitated, anxious, depressed - Skin Skin exam: Present: dry, intact, warm. Absent: cyanosis, rash Internal Medicine: Result - Labs CBC & Chem 7: 03/22/18 03:30 03/22/18 03:30 Labs: Short CBC 03/22/18 Range/Units 03:30 WBC 20.2 H (4.3-11.1) K/mcL Hgb 11.1 L D (11.5-15.4) g/dL Hct 34.4 L (35.3-44.9) % Plt Count 168 (140-400) K/mcL BMP 03/22/18 03:30 Sodium 139 Potassium 3.5 Chloride 104 Carbon Dioxide 26 BUN 31 H Creatinine 0.98 Glucose 91 Calcium 8.6 Cardiac Enzymes 03/21/18 03/22/18 Range/Units 21:59 03:30 Troponin I 0.03 0.03 (< 0.04) ng/mL Liver Function 03/22/18 Range/Units 03:30 Total Bilirubin 0.6 (0.3-1.0) mg/dL AST 23 (13-39) Units/L ALT 23 (7-52) Units/L Alkaline Phosphatase 52 (34-104) Units/L Albumin 3.2 L (3.5-5.7) g/dL - ABG Interpretation ABG results: ABG ABG pH 7.42 pH Units (7.32-7.45) 03/22/18 00:39 ABG pCO2 40 mmHg (35-45) 03/22/18 00:39 ABG pO2 76 mmHg (85-104) L 03/22/18 00:39 ABG O2 Saturation 95 % (95-98) 03/22/18 00:39 Consult Discharge Plan - Plan Referrals: Cesilia Ahn, ROWENA [Primary Care Provider] -
[2018-03-22] MEDS: Diltiazem CD (24hr) 180 MG CAPSULE PO SCH (09:15)
[2018-03-22] MEDS: cefTRIAXone 1,000 MG in Water for inj. (sterile) 20 ML 10 ML IVP SCH (09:15)
[2018-03-22] MEDS: Isosorbide MONOnitrate (24 HR) 30 MG TAB.ER.24H PO SCH (09:15)
[2018-03-22] MEDS: Lisinopril 20 MG TABLET PO SCH (09:15)
[2018-03-22] MEDS: Metoprolol XL (24 HR) Succ 25 MG TAB.ER.24H PO SCH (09:15)
[2018-03-22] MEDS: *HR* Amiodarone 200 MG TABLET PO SCH (09:16)
[2018-03-22] MEDS ORDERED: *HR* Warfarin 2.5 MG TABLET PO SCH ×2 (10:30→18:00)
[2018-03-22 10:45] LABS: INR 1.6; Prothrombin Time 17.6 Seconds (9.4-12.1)
[2018-03-22] MEDS: Acetylcysteine 10% 2 ML INHSOL IH SCH ×2 (11:20→16:01)
[2018-03-22] MEDS: Bumetanide 1 MG TABLET PO SCH (12:15)
[2018-03-22] MEDS ORDERED: Warfarin perPT PO PRN (18:00)
[2018-03-22] MEDS: Azithromycin 500 MG in D5% in Water 250 ML IVPB SCH (21:57)
[2018-03-23] MEDS: Ipratropium/Albuterol Neb 3 ML IH SCH ×4 (03:10→22:07)
[2018-03-23 05:36] LABS: Basophils % 0.2 %; Eosinophils % 0.3 %; Hematocrit 29.3 % (35.3-44.9); Immature Granulocytes % 0.5 % (0-4); Lymphocytes # 0.9 K/mcL (0.6-4.6); Mean Corpuscular HGB Conc 32.4 g/dL (31.6-35.5); Mean Corpuscular Hemoglobin 30.6 pg (28.0-33.3); Mean Corpuscular Volume 94.5 fL (83.0-100.0); Mean Platelet Volume 10.2 fL (9.4-12.4); Monocytes # 0.8 K/mcL (0.0-1.3); Monocytes % 6.6 %; Neutrophils # 9.6 K/mcL (1.6-8.9); Platelet Count 166 K/mcL (140-400); Red Cell Distribution Width 14.2 % (11.5-14.5); Segmented Neutrophils % 84.4 %
[2018-03-23 05:46] LABS: Hemoglobin 9.5 g/dL (11.5-15.4)
[2018-03-23 05:54] LABS: INR 1.4; Prothrombin Time 15.3 Seconds (9.4-12.1)
[2018-03-23 05:55] LABS: BUN/Creatinine Ratio 31 (6-26); Blood Urea Nitrogen 26 mg/dL (8-23); Calcium 8.4 mg/dL (8.6-10.3); Carbon Dioxide 25 mEq/L (23-29); Chloride 107 mEq/L (98-107); Glucose 97 mg/dL (70-105); Osmolality,Calculated 293 (280-300); Potassium 3.1 mEq/L (3.5-5.1); Sodium 139 mEq/L (136-145); eGFR For African Americans > 60 (> 60); eGFR For Non-African Americans > 60 (> 60)
[2018-03-23] MEDS: cefTRIAXone 1,000 MG in Water for inj. (sterile) 20 ML 10 ML IVP SCH (07:54)
[2018-03-23] MEDS: Bumetanide 1 MG TABLET PO SCH (07:54)
[2018-03-23] MEDS: *HR* Amiodarone 200 MG TABLET PO SCH (07:54)
[2018-03-23] MEDS: Lisinopril 20 MG TABLET PO SCH (07:54)
[2018-03-23] MEDS: Metoprolol XL (24 HR) Succ 25 MG TAB.ER.24H PO SCH (07:54)
[2018-03-23] MEDS: Isosorbide MONOnitrate (24 HR) 30 MG TAB.ER.24H PO SCH (07:54)
[2018-03-23] MEDS: Diltiazem CD (24hr) 180 MG CAPSULE PO SCH (07:54)
--- NOTE | 2018-03-23 09:03 | Internal Med Progress Note ---
Date of Encounter: 03/23/18 Time of Encounter: 09:01 - Assessment and plan (1) Community acquired pneumonia Current Visit: Yes Status: Acute Assessment and plan: RUL. Improving. No SOB. Continue supplemental O2 PRN (currently at 2L NC with O2 sat 98%); wean as tolerated (uses PRN at home). WBC trending down. Continue IV rocephin and azithromycin. Qualifiers: Laterality: right Lung location: upper lobe of lung Qualified Code(s): J18.1 - Lobar pneumonia, unspecified organism (2) Sepsis Current Visit: Yes Status: Acute Assessment and plan: Improved. WBC trending down. Vitals improved. Repeat CBC in AM. Monitor vitals closely. Qualifiers: Sepsis type: sepsis due to unspecified organism Qualified Code(s): A41.9 - Sepsis, unspecified organism (3) Atrial fibrillation Current Visit: Yes Status: Chronic Assessment and plan: NSR. Continue home medications. Continue to monitor. Qualifiers: Atrial fibrillation type: unspecified Qualified Code(s): I48.91 - Unspecified atrial fibrillation (4) Anemia Current Visit: Yes Status: Chronic Assessment and plan: Chronic issues. Hgb stable. Continue to monitor. Recheck CBC in AM. Qualifiers: Anemia type: iron deficiency Iron deficiency anemia type: unspecified iron deficiency Qualified Code(s): D50.9 - Iron deficiency anemia, unspecified (5) CAD (coronary artery disease) Current Visit: Yes Status: Chronic Assessment and plan: Troponin trended up to 0.05 at 12 hours. Likely secondary to sepsis/pneumonia. No chest pain. Repeat EKG yesterday unchanged without ST/T changes. Continue home medications. Qualifiers: Coronary Disease-Associated Artery/Lesion type: [place] artery [place] vs. transplanted heart: [place] heart Associated angina: with unspecified angina Qualified Code(s): I25.119 - Atherosclerotic heart disease of [place] coronary artery with unspecified angina pectoris (6) HTN (hypertension) Current Visit: Yes Status: Chronic Assessment and plan: Continue home medications. Qualifiers: Hypertension type: essential hypertension Qualified Code(s): I10 - Essential (primary) hypertension (7) Pacemaker Current Visit: Yes Status: Chronic Assessment and plan: No issues at this time. (8) DVT prophylaxis Current Visit: Yes Status: Acute Assessment and plan: On coumadin. Dosing by pharmacy. INR subtherapeutic; will add SCDs. - Time Spent With Patient Total time spent is greater than 50% in coordination of care (as documented) at patient's floor/unit and/or counseling patient: less than 15 minutes - Subjective Interval history: Patient had no acute events overnight. She states that she is feeling "good" today. She denies any chest pain, SOB, fever, chills, nausea, or vomiting. She does have right lower side pain with deep breaths. She has no other complaints. - Constitutional Vitals: Temp Pulse Resp BP Pulse Ox 98.2 F 68 19 159/56 98 03/23/18 08:11 03/23/18 08:11 03/23/18 08:11 03/23/18 08:11 03/23/18 08:11 General appearance: Present: cooperative, A&O X 3, pleasant, no acute distress, answers questions appropriately - Respiratory Respiratory exam: Present: CTAB. Absent: accessory muscle use, rales, rhonchi, wheezes Additional comments: Mildly labored WOB - Cardiovascular Cardiovascular exam: Present: RRR, +S1, +S2. Absent: diastolic murmur, gallop, rubs, systolic murmur Additional comments: No BLE edema - GI/Abdominal GI/Abdominal exam: Present: normal bowel sounds, soft. Absent: distended, hepatomegaly, mass, splenomegaly, tenderness - Psychiatric Psychiatric exam: Present: normal affect, normal mood. Absent: agitated, anxious, depressed - Skin Skin exam: Present: dry, intact, warm. Absent: cyanosis, rash Internal Medicine: Result - Labs CBC & Chem 7: 03/23/18 05:24 03/23/18 05:24 Labs: Short CBC 03/23/18 Range/Units 05:24 WBC 11.3 H (4.3-11.1) K/mcL Hgb 9.5 L D (11.5-15.4) g/dL Hct 29.3 L (35.3-44.9) % Plt Count 166 (140-400) K/mcL Neutrophils # 9.6 H (1.6-8.9) K/mcL BMP 03/23/18 05:24 Sodium 139 Potassium 3.1 L Chloride 107 Carbon Dioxide 25 BUN 26 H Creatinine 0.83 Glucose 97 Calcium 8.4 L Cardiac Enzymes 03/22/18 03/22/18 Range/Units 09:26 15:42 Troponin I 0.05 H* 0.05 H* (< 0.04) ng/mL - ABG Interpretation ABG results: ABG ABG pH 7.42 pH Units (7.32-7.45) 03/22/18 00:39 ABG pCO2 40 mmHg (35-45) 03/22/18 00:39 ABG pO2 76 mmHg (85-104) L 03/22/18 00:39 ABG O2 Saturation 95 % (95-98) 03/22/18 00:39 PT/INR, D-dimer PT 15.3 Seconds (9.4-12.1) H 03/23/18 05:24 - VTE Documentation of Mechanical Device: Intermittent pneumatic compression device ( Until INR therapeutic) Consult Discharge Plan - Plan Referrals: Cesilia Ahn, ROWENA [Primary Care Provider] -
[2018-03-23] MEDS ORDERED: *HR* Warfarin 5 MG TABLET PO ONE (18:00)
[2018-03-23] MEDS: Azithromycin 500 MG in D5% in Water 250 ML IVPB SCH (23:06)
[2018-03-23] MEDS: Aspirin Enteric Coated 81 MG Tablet PO SCH (23:06)
[2018-03-24] MEDS: Ipratropium/Albuterol Neb 3 ML IH SCH ×2 (03:21→10:02)
[2018-03-24 05:26] LABS: Basophils % 0.1 %; Eosinophils # 0.1 K/mcL (0.0-0.6); Eosinophils % 1.1 %; Hematocrit 31.3 % (35.3-44.9); Immature Granulocytes % 0.7 % (0-4); Lymphocytes # 0.5 K/mcL (0.6-4.6); Lymphocytes % 5.7 %; Mean Corpuscular HGB Conc 31.9 g/dL (31.6-35.5); Mean Corpuscular Hemoglobin 30.2 pg (28.0-33.3); Mean Corpuscular Volume 94.6 fL (83.0-100.0); Mean Platelet Volume 10.2 fL (9.4-12.4); Monocytes # 0.7 K/mcL (0.0-1.3); Monocytes % 7.9 %; Neutrophils # 7.7 K/mcL (1.6-8.9); Platelet Count 183 K/mcL (140-400); Red Blood Count 3.31 M/mcL (3.82-4.97); Red Cell Distribution Width 14.1 % (11.5-14.5); Segmented Neutrophils % 84.5 %
[2018-03-24 05:33] LABS: INR 1.7; Prothrombin Time 18.2 Seconds (9.4-12.1)
[2018-03-24 05:50] LABS: BUN/Creatinine Ratio 30 (6-26); Blood Urea Nitrogen 21 mg/dL (8-23); Calcium 8.5 mg/dL (8.6-10.3); Carbon Dioxide 23 mEq/L (23-29); Chloride 108 mEq/L (98-107); Glucose 144 mg/dL (70-105); Osmolality,Calculated 294 (280-300); Potassium 3.8 mEq/L (3.5-5.1); Sodium 139 mEq/L (136-145); eGFR For African Americans > 60 (> 60); eGFR For Non-African Americans > 60 (> 60)
[2018-03-24 11:21] VITALS: BP 158/64
[2018-03-24] MEDS: Metoprolol XL (24 HR) Succ 25 MG TAB.ER.24H PO SCH (11:57)
[2018-03-24] MEDS: *HR* Amiodarone 200 MG TABLET PO SCH (11:57)
[2018-03-24] MEDS: cefTRIAXone 1,000 MG in Water for inj. (sterile) 20 ML 10 ML IVP SCH (11:57)
[2018-03-24] MEDS: Lisinopril 20 MG TABLET PO SCH (11:57)
[2018-03-24] MEDS: Isosorbide MONOnitrate (24 HR) 30 MG TAB.ER.24H PO SCH (11:57)
[2018-03-24] MEDS: Diltiazem CD (24hr) 180 MG CAPSULE PO SCH (11:57)
[2018-03-24] MEDS: Bumetanide 1 MG TABLET PO SCH (11:57)
--- NOTE | 2018-03-24 12:00 | Discharge Summary ---
- NOTES TO OUTPATIENT PROVIDER Notes to Outpatient Provider: Follow up with PCP in 2-3 days after discharge. Check PT/PTT/INR; adjust coumadin as necessary. Orders not resulted at time of discharge: Pending orders 03/21/18 21:59 Culture,Blood [BC] Routine 03/22/18 10:36 EKG [ECG 12 lead ECG] [ECG] Stat 03/25/18 04:00 PT/INR [Prothrombin Time INR] [COAG] AM 0400 03/26/18 04:00 PT/INR [Prothrombin Time INR] [COAG] AM 0400 03/27/18 04:00 PT/INR [Prothrombin Time INR] [COAG] AM 0400 Date of Encounter: 03/24/18 Time of Encounter: 08:37 - Discharge Diagnosis (1) Sepsis Priority: Primary Status: Resolved Qualifiers: Sepsis type: sepsis due to unspecified organism Qualified Code(s): A41.9 - Sepsis, unspecified organism (2) Community acquired pneumonia Priority: Secondary Status: Acute Qualifiers: Laterality: right Lung location: upper lobe of lung Qualified Code(s): J18.1 - Lobar pneumonia, unspecified organism (3) Atrial fibrillation Priority: Secondary Status: Chronic Qualifiers: Atrial fibrillation type: unspecified Qualified Code(s): I48.91 - Unspecified atrial fibrillation (4) Anemia Priority: Secondary Status: Chronic Qualifiers: Anemia type: iron deficiency Iron deficiency anemia type: unspecified iron deficiency Qualified Code(s): D50.9 - Iron deficiency anemia, unspecified (5) CAD (coronary artery disease) Priority: Secondary Status: Chronic Qualifiers: Coronary Disease-Associated Artery/Lesion type: platinum artery [place] vs. transplanted heart: platinum heart Associated angina: with unspecified angina Qualified Code(s): I25.119 - Atherosclerotic heart disease of platinum coronary artery with unspecified angina pectoris (6) HTN (hypertension) Priority: Secondary Status: Chronic Qualifiers: Hypertension type: essential hypertension Qualified Code(s): I10 - Essential (primary) hypertension (7) Pacemaker Priority: Secondary Status: Chronic (8) DVT prophylaxis Priority: Secondary Status: Acute Hospital course: Ms. Saucedo is a 87 year old white female admitted for sepsis and pneumonia. She was admitted to general medical floor with telemetry. She was started on IV azithromycin and IV rocephin. She was placed on supplemental O2. This was weaned to room air on day of discharge. Sepsis resolved after admission. Her respiratory status improved throughout admission. She had some chest pain. Troponin trended up to 0.05 at 12 hours. EKG was unchanged from previous. Chest pain was thought to be due to respiratory distress, and pain improved with improvement in respiratory status. Elevated troponin was thought to be due to demand from acute illness. She will be discharged home with 10 day total of antibiotics. Her INR was subtherapeutic, so pharmacy was following INR and adjusting coumadin. She will follow up with PCP in 2-3 days after discharge. PT/PTT/INR can be checked at that time and coumadin dose adjusted as necessary. Patient has met maximum benefit of this hospitalization and will be discharged home in stable condition. Discharge discussed with: patient, nurse, other (Pharmacist) - Time Spent with Patient Total time spent providing and/or coordinating discharge services: Greater than 30 minutes - Discharge Medications Prescriptions: Azithromycin [Zithromax [place]] 500 mg PO DAILY 6 Days #6 tablet Cefdinir [Omnicef] 300 mg PO BID 6 Days #12 capsule Home Medications: Amiodarone HCl [Pacerone] 200 mg PO DAILY 01/14/17 [History] Pantoprazole Sodium [Protonix] 40 mg PO DAILY 01/14/17 [History] Diltiazem CD (24hr) [Cardizem CD] 180 mg PO DAILY #30 cap.er.24h 02/05/17 [Rx] Lisinopril [Zestril] 40 mg PO DAILY 02/21/17 [History] Aspirin [Lo-Dose Aspirin EC] 81 mg PO Q48H #0 11/04/17 [Rx] Bumetanide 0.5 mg PO DAILY #30 tablet 11/04/17 [Rx] Isosorbide MONOnitrate (24 HR) [Imdur] 30 mg PO DAILY #30 tab.er.24h 11/04/17 [ Rx] Metoprolol XL (24 HR) Succ [Toprol Xl] 25 mg PO DAILY #30 tab.er.24h 11/04/17 [ Rx] Doxazosin [Cardura] 4 mg PO DAILY 03/22/18 [History] Warfarin [Coumadin] 2.5 mg PO DAILY 03/22/18 [History] Azithromycin [Zithromax [place]] 500 mg PO DAILY 6 Days #6 tablet 03/24/18 [Rx] Cefdinir [Omnicef] 300 mg PO BID 6 Days #12 capsule 03/24/18 [Rx] Allergies/Adverse Reactions: 3 Allergy/AdvReac Type Severity Reaction Status Date / Time No Known Allergies Allergy Verified 11/01/17 14:33 Date of admission: 03/21/18 21:37 Primary care physician: Cesilia Ahn Discharging clinician: Forrest Iyer Anticipated date of discharge: 03/24/18 - Constitutional Vitals: Temp Pulse Resp BP Pulse Ox 97.8 F 87 18 158/64 95 03/24/18 07:30 03/24/18 11:18 03/24/18 11:18 03/24/18 11:18 03/24/18 11:18 General appearance: Present: cooperative, A&O X 3, pleasant, no acute distress, answers questions appropriately - Respiratory Respiratory exam: Present: CTAB. Absent: accessory muscle use, rales, rhonchi, wheezes Additional comments: Normal WOB - Cardiovascular Cardiovascular exam: Present: RRR, +S1, +S2. Absent: diastolic murmur, gallop, rubs, systolic murmur Additional comments: No BLE edema - GI/Abdominal GI/Abdominal exam: Present: normal bowel sounds, soft. Absent: distended, hepatomegaly, mass, splenomegaly, tenderness - Psychiatric Psychiatric exam: Present: normal affect, normal mood. Absent: agitated, anxious, depressed - Skin Skin exam: Present: dry, intact, warm. Absent: cyanosis, rash - Patient Status Disposition: Home, Self-Care Condition: Good Overall status at discharge: patient is progressing back to baseline - Discharge Instructions Follow Up With: Cesilia Ahn, [employer] [Primary Care Provider] - Additional Instructions: Follow up with PCP in 2-3 days after discharge. Check PT/PTT/INR; adjust coumadin as necessary. - Diet and Activity Activity: resume usual activities as tolerated, wear oxygen at all times (Wean as tolerated to RA) Diet: low fat, low cholesterol, low salt diet, other (Cardiac Diet) - VTE Documentation of Mechanical Device: Intermittent pneumatic compression device ( Until INR therapeutic)
[2018-03-24] MEDS ORDERED: *HR* Warfarin 3 MG TABLET PO SCH (18:00)
[2018-03-24] MEDS ORDERED: Azithromycin 250 MG TABLET PO SCH (21:00)
== END 2018-03-24 14:42 | disposition home or self-care (01) | DRG 871 ==
LOC: 2NENU
PROVIDERS: ADMIT Pediatrics; ATTEND Pediatrics